=== PATIENT | female | born 1970 | race Caucasian/White ===

== ENCOUNTER → 2017-08-17 15:46 | Outpatient (CLI) | payer MEDICAID, SELFPAY ==
--- NOTE | 2017-08-17 15:49 | MM_ITS ---
MM Dig screening mamm BI w/CAD CAD Screening COMPARISON: Digital mammograms 01/14/2015 and 04/27/2016 INDICATION: There is a history of breast cancer in the patient's grandmother diagnosed after menopause. TECHNIQUE: Standard CC and MLO images were obtained. R2 CAD reviewed. FINDINGS: Prominent heterogenic fibroglandular densities are seen in the central portions of both breast. There are 2 biopsy clips right breast. Again noted is the stable annular opacity deep inner quadrant right breast which has been seen previously likely iatrogenic in nature. There is a benign-appearing calcification right breast. There is no suspicious lesion and no suspicious microcalcifications. IMPRESSION: Stable exam no suspicious lesion seen BI-RADS Category: 2 Benign Finding(s) RECOMMENDED FOLLOW-UP: 1YR - 1 YEAR FOLLOW-UP (A letter has been sent to the patient regarding results of the study.)
== END ==
PROVIDERS: Family Provider Nurse Practitioner Family; PCP Emergency Medicine; Visit Provider Physician Assistant
DX: Z12.31 Encounter for screening mammogram for malignant neoplasm of breast (principal)
CPT/HCPCS: 77067

== ENCOUNTER → 2017-08-22 12:01 | Outpatient (REF) | payer MEDICAID, SELFPAY ==
[2017-08-22 13:48] LABS: Amphetamine/Metha Screen,Urine Negative ng/mL (<1000); Barbiturates Screen,Urine Negative ng/mL (<200); Benzodiazepines Screen,Urine Negative ng/mL (200); Cannabinoid Screen,Urine Positive ng/mL (<50); Cocaine Screen,Urine Negative ng/g (<300); Methadone Screen,Urine Negative ng/mL (<300); Opiate Screen,Urine Positive ng/mL (<300); Phencyclidine Screen,Urine Negative ng/mL (<25)
== END ==
LOC: LAB 12:01
PROVIDERS: Visit Provider Physician Assistant
DX: Z79.899 Other long term (current) drug therapy (principal)
CPT/HCPCS: 80305

== ENCOUNTER → 2017-11-20 11:09 | Outpatient (REF) | payer MEDICAID, SELFPAY ==
[2017-11-20 13:19] LABS: Basophils # 0.1 K/mm3 (0-0.2); Basophils % 0.7 % (0.1-2.0); Eosinophils # 0.2 K/mm3 (0.0-0.4); Eosinophils % 3.5 % (0.1-12.0); Hematocrit 44.1 % (37.0-47.0); Hemoglobin 14.4 g/dL (12.2-16.2); Lymphocytes # 1.3 K/mm3 (0.7-4.5); Lymphocytes % 20.8 K/mm3 (10-50); Mean Corpuscular HGB Conc 32.6 g/dL (31.8-35.4); Mean Corpuscular Hemoglobin 30.5 pg (27.0-31.2); Mean Corpuscular Volume 93.5 fl (81-99); Mean Platelet Volume 7.4 fl (7.4-10.4); Monocytes # 0.3 K/mm3 (0.1-1.0); Monocytes % 4.5 % (1.7-9.3); Neutrophils # 4.4 K/mm3 (1.8-7.8); Neutrophils % 70.5 % (37.0-80.0); Platelet Count 338 K/mm3 (142-424); Red Blood Count 4.72 M/mm3 (4.20-5.40); Red Cell Distribution Width 12.9 % (11.5-17.5); White Blood Count 6.3 K/mm3 (4.8-10.8)
[2017-11-20 17:48] LABS: Alanine Aminotransferase 31 U/L (12-78); Albumin/Globulin Ratio 1.2 (1.1-1.8); Alkaline Phosphatase 64 U/L (46-116); Anion Gap 14.2 mEq/L (5-15); Aspartate Amino Transferase 18 U/L (15-37); Bilirubin,Total 0.4 mg/dL (0.2-1.0); Blood Urea Nitrogen 17 mg/dL (7-18); Carbon Dioxide 26 mmol/L (21.0-32.0); Chloride 105 mmol/L (98-107); Chol/HDL Ratio 4.5 (1-3.5); Cholesterol 227 mg/dL (140-200); Creatinine,Serum 0.76 mg/dL (0.55-1.02); Estimated Glomerular Filt Rate 82 ml/min (>60); GFR (African American) 99 ML/MIN (>60); Globulin 3.4 gm/dl (1.3-3.2); Glucose 90 mg/dL (74-106); HDL Cholesterol 50 mg/dL (29-89); LDL Cholesterol 155 mg/dL (0-130); Potassium 4.2 mmoL/L (3.5-5.1); Sodium 141 mmol/L (136-145); T4 (Thyroxine) 7.3 ug/dl (4.7-13.3); Thyroid Stimulating Hormone 3.51 uIU/ml (0.358-3.740); Total Protein,Serum 7.4 gm/dL (6.4-8.2); Triglycerides 112 mg/dL (30-200); VLDL Cholesterol 22 mg/dL (0-40)
[2017-11-22 06:17] LABS: Vitamin B12 370 pg/mL (232-1245); Vitamin D 25 Hydroxy 25.7 ng/mL (30.0-100.0)
== END ==
LOC: LAB 11:09
PROVIDERS: Visit Provider Physician Assistant
DX: M81.0 Age-related osteoporosis without current pathological fracture (principal)
CPT/HCPCS: 80053; 80061; 82607; 82652; 84436; 84443; 85025

== ENCOUNTER → 2018-07-04 14:27 | Outpatient (CLI) | payer MEDICAID, SELFPAY ==
[2018-07-04 14:52] LABS: Amphetamine/Metha Screen,Urine Negative ng/mL (<1000); Barbiturates Screen,Urine Negative ng/mL (<200); Benzodiazepines Screen,Urine Negative ng/mL (<200); Cannabinoid Screen,Urine Positive ng/mL (<50); Cocaine Screen,Urine Negative ng/mL (<300); Methadone Screen,Urine Negative ng/mL (<300); Opiate Screen,Urine Positive ng/mL (<300); Phencyclidine Screen,Urine Negative ng/mL (<25)
== END ==
PROVIDERS: Visit Provider Physician Assistant
DX: Z79.899 Other long term (current) drug therapy (principal)
CPT/HCPCS: 80305

== ENCOUNTER → 2018-08-29 13:37 | Outpatient (CLI) | payer MEDICAID, SELFPAY ==
[2018-08-29 13:56] LABS: Basophils % 0.6 % (0.1-2.0); Eosinophils # 0.2 K/mm3 (0.0-0.4); Eosinophils % 2.3 % (0.1-12.0); Hematocrit 40.3 % (37.0-47.0); Hemoglobin 13.1 g/dL (12.2-16.2); Lymphocytes # 1.1 K/mm3 (0.7-4.5); Lymphocytes % 16.6 % (10-50); Mean Corpuscular HGB Conc 32.5 g/dL (31.8-35.4); Mean Corpuscular Hemoglobin 29.3 pg (27.0-31.2); Mean Corpuscular Volume 90.2 fl (81-99); Mean Platelet Volume 6.7 fl (7.4-10.4); Monocytes # 0.3 K/mm3 (0.1-1.0); Monocytes % 4.9 % (1.7-9.3); Neutrophils % 75.6 % (37.0-80.0); Platelet Count 323 K/mm3 (142-424); Red Blood Count 4.47 M/mm3 (4.20-5.40); Red Cell Distribution Width 13.4 % (11.5-17.5); White Blood Count 6.7 K/mm3 (4.8-10.8)
[2018-08-29 14:39] LABS: Alanine Aminotransferase 19 U/L (12-78); Albumin Level 3.7 gm/dL (3.4-5.0); Albumin/Globulin Ratio 1.1 (1.1-1.8); Alkaline Phosphatase 109 U/L (46-116); Anion Gap 12.8 mEq/L (5-15); Aspartate Amino Transferase 14 U/L (15-37); Bilirubin,Total 0.4 mg/dL (0.2-1.0); Blood Urea Nitrogen 17 mg/dL (7-18); Calcium 9.1 mg/dL (8.5-10.1); Carbon Dioxide 28 mmol/L (21.0-32.0); Chloride 104 mmol/L (98-107); Creatinine,Serum 0.78 mg/dL (0.55-1.02); Estimated Glomerular Filt Rate 79 ml/min (>60); GFR (African American) 96 ML/MIN (>60); Globulin 3.4 gm/dl (1.3-3.2); Glucose 86 mg/dL (74-106); Potassium 3.8 mmoL/L (3.5-5.1); Sodium 141 mmol/L (136-145); Thyroid Stimulating Hormone 2.49 uIU/ml (0.358-3.740); Total Protein,Serum 7.1 gm/dL (6.4-8.2)
[2018-08-29 15:53] LABS: Amphetamine/Metha Screen,Urine Positive ng/mL (<1000); Barbiturates Screen,Urine Negative ng/mL (<200); Benzodiazepines Screen,Urine Negative ng/mL (<200); Cannabinoid Screen,Urine Positive ng/mL (<50); Cocaine Screen,Urine Negative ng/mL (<300); Methadone Screen,Urine Negative ng/mL (<300); Opiate Screen,Urine Positive ng/mL (<300); Phencyclidine Screen,Urine Negative ng/mL (<25)
== END ==
PROVIDERS: Visit Provider Physician Assistant
DX: C91.00 Acute lymphoblastic leukemia not having achieved remission (principal); Z79.899 Other long term (current) drug therapy
CPT/HCPCS: 80053; 80305; 84436; 84443; 85025

== ENCOUNTER → 2018-09-07 08:57 | Outpatient (CLI) | payer MEDICAID, SELFPAY ==
--- NOTE | 2018-09-07 09:00 | MM_ITS ---
MM Dig screening mamm BI w/CAD CAD Screening COMPARISON: Digital mammograms with CAD 08/17/2017 and 04/27/2016 INDICATION: There is a history of breast cancer in the patient's maternal grandmother diagnosed after menopause. There has been previous biopsy right breast for benign disease. TECHNIQUE: Standard CC and MLO images were obtained. R2 CAD reviewed. FINDINGS: Moderate heterogenic fibroglandular densities are seen in the central portions of both breast. There are 2 biopsy clips right breast. Again noted is the rectangular foreign body upper inner quadrant right breast there is a stable nodular benign-appearing density right breast inner quadrant. There is a benign-appearing calcification right breast. There is no suspicious lesion and there are no suspicious microcalcifications. IMPRESSION: Moderate breast density with no suspicious lesion seen BI-RADS Category: 2 Benign Finding(s) RECOMMENDED FOLLOW-UP: 1YR - 1 YEAR FOLLOW-UP (A letter has been sent to the patient regarding results of the study.)
--- NOTE | 2018-09-07 09:00 | CA_ITS ---
PROCEDURE: 2-D M-mode and color Doppler study INDICATIONS FOR THE TEST: Chest pain COPD Heart Murmur Tobacco Smoking Palpitations Fatigue Syncope Edema HypertensionXDiabetes Mellitus Rheumatic Fever SOB JOE Obesity HyperlipidemiaX Family History HD Additional History P/H LEUKEMIA PATIENT INFORMATION HEIGHT: 63 WEIGHT:146 GENDER: Female B/P:128/76 2-D/M-MODE INTERPRETATION: 2-D MEASUREMENTS OBSERVED VALUES IN CMS Right Ventricular Dimension (RVDd) 2.5 Interventricular Septum (Thickness)(IVsd) 1.0 Left Ventricular Internal Dimensions(LVIDd) 3.7 Left Ventricular Posterior Wall (Thickness)(LVPWd) .9 Aortic Root 3.3 Aortic Cusp Separation 1.8 Left Atrial Dimensions (LAD) 2.5 2D 1. Left atrium is normal size, left ventricle is normal size, left ventricle wall thickness is upper limit of normal, there is preserved left ventricular systolic function, visually estimated ejection fraction 55% with no regional wall motion abnormality. 2. The right atrium and right ventricle are normal size and contractility. 3. The aortic valve is minimally thickened and fibrosed. 4. The mitral and tricuspid valve are grossly normal. 5. The pulmonic valve is poorly visualized. 6. No significant pericardial effusion noted DOPPLER INTERROGATION: Doppler interrogation of the aortic, mitral and tricuspid valvular presence of mild mitral and tricuspid regurgitation, tricuspid regurgitation jet velocity is inadequate for calculation of the right ventricular systolic pressure, grade 1 diastolic dysfunction seen without tissue Doppler evidence of raised left atrial pressure. CONCLUSION: 1. Normal left ventricular size, preserved left ventricular systolic function, visually estimated ejection fraction 55% with no regional wall motion abnormality, grade 1 diastolic dysfunction seen without tissue Doppler evidence of raised left atrial pressure. 2. Mild mitral and tricuspid regurgitation 3. No significant pericardial effusion noted.
== END ==
PROVIDERS: PCP Physician Assistant; Visit Provider Physician Assistant
DX: Z12.31 Encounter for screening mammogram for malignant neoplasm of breast (principal); C91.01 Acute lymphoblastic leukemia, in remission
CPT/HCPCS: 77067; 93306

== ENCOUNTER → 2018-12-25 14:23 | Outpatient (CLI) | payer MEDICAID, SELFPAY ==
[2018-12-25 17:12] LABS: Amphetamine/Metha Screen,Urine Negative ng/mL (<1000); Barbiturates Screen,Urine Negative ng/mL (<200); Benzodiazepines Screen,Urine Negative ng/mL (<200); Cannabinoid Screen,Urine Positive ng/mL (<50); Cocaine Screen,Urine Negative ng/mL (<300); Methadone Screen,Urine Negative ng/mL (<300); Opiate Screen,Urine Positive ng/mL (<300); Phencyclidine Screen,Urine Negative ng/mL (<25)
== END ==
PROVIDERS: Visit Provider Physician Assistant
DX: Z79.899 Other long term (current) drug therapy (principal)
CPT/HCPCS: 80305

== ENCOUNTER → 2020-04-16 15:46 | Outpatient (CLI) | payer MEDICAID, SELFPAY ==
[2020-04-16 15:50] LABS: MANUAL DIFFERENTIAL MANUAL DIFFERENTIAL (MANUAL DIFF)
[2020-04-16 16:09] LABS: Basophils % 0.7 % (0.1-2.0); Eosinophils # 0.3 K/mm3 (0.0-0.4); Hematocrit 39.3 % (37.0-47.0); Hemoglobin 12.6 g/dL (12.2-16.2); Lymphocytes % 18.8 % (10-50); Mean Corpuscular HGB Conc 32.1 g/dL (31.8-35.4); Mean Corpuscular Hemoglobin 30.1 pg (27.0-31.2); Mean Corpuscular Volume 93.9 fl (81-99); Mean Platelet Volume 7.9 fl (7.4-10.4); Monocytes # 0.2 K/mm3 (0.1-1.0); Monocytes % 4.3 % (1.7-9.3); Neutrophils # 3.8 K/mm3 (1.8-7.8); Neutrophils % 70.1 % (37.0-80.0); Platelet Count 289 K/mm3 (142-424); Red Blood Count 4.19 M/mm3 (4.20-5.40); White Blood Count 5.5 K/mm3 (4.8-10.8)
[2020-04-16 16:43] LABS: Chloride 106 mmol/L (98-107)
[2020-04-16 16:44] LABS: Potassium 4.4 mmoL/L (3.5-5.1); Sodium 141 mmol/L (136-145)
[2020-04-16 16:46] LABS: Alanine Aminotransferase 10 U/L (12-78); Alkaline Phosphatase 83 U/L (38-126); Aspartate Amino Transferase 19 U/L (14-36); Bilirubin,Total 0.5 mg/dl (0.2-1.3); Blood Urea Nitrogen 20 mg/dl (7-17); Estimated Glomerular Filt Rate 89 ml/min (>60); GFR (African American) 108 ML/MIN (>60)
[2020-04-16 16:47] LABS: Albumin Level 4.2 g/dl (3.5-5.0); Albumin/Globulin Ratio 1.6 (1.1-1.8); Anion Gap 15.4 mEq/L (5-15); Calcium 9.3 mg/dl (8.4-10.2); Carbon Dioxide 24 mmol/L (22.0-30.0); Globulin 2.7 g/dL (1.3-3.2); Glucose 91 mg/dl (74-100); Total Protein,Serum 6.9 g/dl (6.3-8.2)
[2020-04-16 16:53] LABS: Eosinophils % 3 % (0-3); Lymphocytes % 25 % (10-50); Monocytes % 3 % (2-9); Neutrophils % 69 % (42-76); Platelet Estimate Normal; RBC Morphology Normal; Total Cells Counted 100
[2020-04-16 16:56] LABS: Free T4 (Free Thyroxine) 1.19 ng/dl (0.78-2.19)
[2020-04-16 17:11] LABS: Thyroid Stimulating Hormone 4.08 uIU/mL (0.465-4.68)
== END ==
PROVIDERS: Visit Provider Physician Assistant
DX: C91.01 Acute lymphoblastic leukemia, in remission (principal)
CPT/HCPCS: 80053; 84439; 84443; 85007; 85014; 85018; 85048; 85049

== ENCOUNTER → 2020-05-04 14:45 | Outpatient (CLI) | payer MEDICAID, SELFPAY ==
--- NOTE | 2020-05-04 14:45 | MM_ITS ---
PROCEDURE: MM DIG SCREENING MAMM BI W/CAD Digital Breast Tomosynthesis Included CLINICAL INDICATION: breast cancer screening There is a history of breast cancer in the patient's maternal grandmother. There has been a previous biopsy right breast for benign disease. COMPARISON: MG DMSB DIG MAMM-SCREEN VICTOR MANUEL from 04/27/2016 MG [facility] MM Dig screening mamm BI w/CAD from 08/17/2017 MG [facility] MM Dig screening mamm BI w/CAD from 09/07/2018 TECHNIQUE: Standard CC and MLO images and 3D Tomosynthesis was obtained. R2 CAD reviewed. FINDINGS: Moderate somewhat heterogenic fibroglandular densities are seen in the central portions of both breast. Again noted are 2 biopsy clips right breast. Again noted is the small rectangular foreign body upper central portion right breast. There is a small fairly well-defined nodular density inner quadrant right breast which has shown interval increase in size and when compared to the most recent study. It is only definitely seen on the CC view but likely within the central portion of the breast in view of its position on the sandra images. Recommend the patient return for spot compression views and ultrasound for additional evaluation. There is a benign-appearing microcalcification right breast. There are no suspicious microcalcifications. IMPRESSION: Moderate breast density with possible change in nodular density right breast BI-RAD Category: 0 Need Additional Imaging Evaluation FOLLOW-UP: IMM Immediate Follow-up Recommended (A letter has been sent to the patient regarding results of the study.) Dictated by: Dr. Miquel Cosby MD 05/07/2020 06:47 Dr. Miquel Cosby MD in [place] 05/07/2020 06:47
--- NOTE | 2020-05-04 14:45 | XR_ITS ---
PROCEDURE: XR DEXA AXIAL SKELETON CLINICAL HISTORY: H/O ALL COMPARISON: CR BONE3 BONE DENSITOMETRY(HIP:LT SPINE from 04/07/2016 FINDINGS: The right forearm BMD is 0.619 with a T-score of -1.2. The lumbar spine BMD is 0.797 with a T-score of -2.3. Previously the lowest density was in the lumbar spine with a T-score of -2.0 IMPRESSION: This patient is considered osteopenic according to the World Health Organization criteria. Bone density is between 10 and 25 percent below young normal. Fracture risk is moderate. Treatment is advised. Based on these results a follow-up exam is recommended in 2 year. Dictated by: Ricardo Barrow MD 05/05/2020 11:15 Ricardo Barrow MD in [place] 05/05/2020 11:15
== END ==
PROVIDERS: PCP Emergency Medicine; Visit Provider Physician Assistant
DX: Z12.31 Encounter for screening mammogram for malignant neoplasm of breast (principal); C91.01 Acute lymphoblastic leukemia, in remission; Z78.0 Asymptomatic menopausal state
CPT/HCPCS: 77063; 77067; 77080

== ENCOUNTER → 2020-05-15 14:45 | Outpatient (CLI) | payer MEDICAID, SELFPAY ==
--- NOTE | 2020-05-15 14:46 | US_ITS ---
PROCEDURE: US BREAST RT COMPLETE CLINICAL INDICATION: abnormal mamm COMPARISON: No exams were available for comparison FINDINGS: There are 2-3 small cystic lesions at the 12 o'clock position mid breast the largest measuring 0.5 cm in diameter. There is another hypoechoic cystic-appearing lesion at the 1 o'clock position measuring 0.7 x 0.5 x 0.6 cm and this likely corresponds in size and location to the nodular lesion seen on the mammogram. There are no suspicious solid lesions seen. There are couple of tiny 3-4 mm cystic lesions at the 7 and 8 o'clock positions near the nipple. There are 2 normal appearing nodes in the axilla. IMPRESSION: Several small benign-appearing cystic lesions as described and no additional evaluation is indicated. Dictated by: Dr. Miquel Cosby MD 05/20/2020 11:24 Dr. Miquel Cosby MD in [place] 05/20/2020 11:24
--- NOTE | 2020-05-15 14:59 | MM_ITS ---
PROCEDURE: MM DIG MAMM DX UNILAT RT CAD Digital Breast Tomosynthesis Included CLINICAL INDICATION: ABN RT BREAST MAMM COMPARISON: MG [facility] MM Dig screening mamm BI w/CAD from 08/17/2017 MG [facility] MM Dig screening mamm BI w/CAD from 09/07/2018 MG MM DIG SCREENING MAMM BI W/CAD from 05/04/2020 US US BREAST RT COMPLETE from 05/15/2020 TECHNIQUE: Standard CC and MLO images and 3D Tomosynthesis was obtained. R2 CAD reviewed. FINDINGS: Views show better visualization of the nodular lesion 12 no one o'clock position and only definitely seen on the CC projection. It measures 7 mm in diameter. There are 2 biopsy clips central portion. Ultrasound performed same date shows several small cystic lesions the largest of which is at the 1 o'clock position measuring 6 mm in diameter. This likely corresponds to the nodule seen on the mammogram. There is no suspicious solid lesion seen. IMPRESSION: Ultrasound confirmation of probable cyst corresponding to the nodular lesion and recommend the patient continue with yearly screening mammography seen on the mammogram BI-RAD Category: 2 Benign Finding(s) FOLLOW-UP: 1YR 1 Year Follow-up (A letter has been sent to the patient regarding results of the study.) Dictated by: Dr. Miquel Cosby MD 05/20/2020 11:20 Dr. Miquel Cosby MD in [place] 05/20/2020 11:20
== END ==
PROVIDERS: PCP Emergency Medicine; Visit Provider Physician Assistant
DX: R92.8 Other abnormal and inconclusive findings on diagnostic imaging of breast (principal)
CPT/HCPCS: 76641; 77061; 77065; G0279

== ENCOUNTER → 2021-03-01 14:44 | Outpatient (CLI) | payer MEDICAID, SELFPAY ==
[2021-03-01 14:57] LABS: Basophils # 0.1 K/mm3 (0-0.2); Basophils % 1.1 % (0.1-2.0); Eosinophils # 0.3 K/mm3 (0.0-0.4); Eosinophils % 3.9 % (0.1-12.0); Hematocrit 36.7 % (37.0-47.0); Hemoglobin 12.2 g/dL (12.2-16.2); Lymphocytes % 13.6 % (10-50); Mean Corpuscular HGB Conc 33.4 g/dL (31.8-35.4); Mean Corpuscular Hemoglobin 30.6 pg (27.0-31.2); Mean Corpuscular Volume 91.8 fl (81-99); Mean Platelet Volume 7.8 fl (7.4-10.4); Monocytes # 0.3 K/mm3 (0.1-1.0); Monocytes % 3.8 % (1.7-9.3); Neutrophils # 5.5 K/mm3 (1.8-7.8); Neutrophils % 77.6 % (37.0-80.0); Platelet Count 301 K/mm3 (142-424); Red Cell Distribution Width 13.2 % (11.5-17.5); White Blood Count 7.1 K/mm3 (4.8-10.8)
[2021-03-01 15:22] LABS: Alanine Aminotransferase 9 U/L (12-78); Albumin Level 3.9 g/dl (3.5-5.0); Albumin/Globulin Ratio 1.4 (1.1-1.8); Alkaline Phosphatase 93 U/L (38-126); Anion Gap 11.6 mEq/L (5-15); Aspartate Amino Transferase 27 U/L (14-36); Bilirubin,Total 0.5 mg/dl (0.2-1.3); Blood Urea Nitrogen 20 mg/dl (7-17); Calcium 8.8 mg/dl (8.4-10.2); Carbon Dioxide 26 mmol/L (22.0-30.0); Chloride 107 mmol/L (98-107); Chol/HDL Ratio 2.9 (1-3.5); Cholesterol 152 mg/dl (140-200); Estimated Glomerular Filt Rate 89 ml/min (>60); GFR (African American) 108 ML/MIN (>60); Globulin 2.7 g/dL (1.3-3.2); Glucose 85 mg/dl (74-100); HDL Cholesterol 53 mg/dl (40-60); Potassium 4.6 mmoL/L (3.5-5.1); Sodium 140 mmol/L (136-145); Total Protein,Serum 6.6 g/dl (6.3-8.2); Triglycerides 217 mg/dl (30-150); VLDL Cholesterol 43 mg/dL (0-40)
[2021-03-01 15:34] LABS: Direct LDL Cholesterol 43.52 mg/dL (100-129)
[2021-03-01 15:35] LABS: Hemoglobin A1C 5.1 % (4.0-6.0)
[2021-03-01 15:38] LABS: Free T4 (Free Thyroxine) 1.11 ng/dl (0.78-2.19)
[2021-03-01 15:39] LABS: 25-OH Vitamin D, Total 27.2 ng/mL (30-100)
[2021-03-01 15:55] LABS: Thyroid Stimulating Hormone 1.44 uIU/mL (0.465-4.68)
[2021-03-01 16:13] LABS: Vitamin B12 377 pg/mL (239-931)
== END ==
PROVIDERS: Visit Provider Physician Assistant
DX: R53.83 Other fatigue (principal); E78.5 Hyperlipidemia, unspecified; E55.9 Vitamin D deficiency, unspecified; L65.9 Nonscarring hair loss, unspecified; M79.671 Pain in right foot; M79.672 Pain in left foot
CPT/HCPCS: 80053; 80061; 82306; 82607; 83036; 84439; 84443; 85025

== ENCOUNTER → 2021-05-17 10:48 | Outpatient (CLI) | payer MEDICAID, SELFPAY ==
--- NOTE | 2021-05-17 10:52 | XR_ITS ---
PROCEDURE INFORMATION: Exam: XR Right Foot Complete; Alignment Exam date and time: 05/17/2021 10:52 AM Age: 51 years old Clinical indication: Pain; Foot; Right; Additional info: Foot pain TECHNIQUE: Imaging protocol: XR Right foot. Views: 3 or more views. COMPARISON: CR FTR3 FOOT-RT-3 VIEWS 08/17/2015 7:48 PM FINDINGS: Bones/joints: There is no evidence of acute fracture.There is no evidence of malalignment or dislocation. Soft tissues: Normal. IMPRESSION: There is no evidence of acute fracture.There is no evidence of malalignment or dislocation.
--- NOTE | 2021-05-17 10:52 | XR_ITS ---
PROCEDURE INFORMATION: Exam: XR Left Foot Complete; Alignment Exam date and time: 05/17/2021 10:52 AM Age: 51 years old Clinical indication: Pain; Foot; Left; Additional info: Foot pain TECHNIQUE: Imaging protocol: XR Left foot. Views: 3 or more views. COMPARISON: No relevant prior studies available. FINDINGS: Bones/joints: There is no evidence of acute fracture.There is no evidence of malalignment or dislocation. Soft tissues: Normal. IMPRESSION: There is no evidence of acute fracture.There is no evidence of malalignment or dislocation.
--- NOTE | 2021-05-17 15:27 | MM_ITS ---
PROCEDURE: MM DIG SCREENING MAMM BI W/CAD Digital Breast Tomosynthesis Included CLINICAL INDICATION: screening mammogram after 05/15 There is a history of breast cancer in the patient's maternal grandmother. There has been a previous biopsy right breast for benign disease. COMPARISON: MG [facility] MM Dig screening mamm BI w/CAD from 09/07/2018 MG MM DIG SCREENING MAMM BI W/CAD from 05/04/2020 MG MM DIG MAMM DX UNILAT RT CAD from 05/15/2020 TECHNIQUE: Standard CC and MLO images and 3D Tomosynthesis was obtained. R2 CAD reviewed. FINDINGS: Moderate somewhat heterogenic fibroglandular densities are seen in both breast. There are 2 biopsy clips right breast. Again noted is a stable rectangular foreign body upper inner quadrant right breast. Again noted is a small nodular density central portion right breast which has been noted previously and actually appears slightly smaller on today's exam. There are couple of benign-appearing microcalcifications in each breast. There is no new or suspicious lesion in either breast and no suspicious microcalcifications. IMPRESSION: Stable exam with no suspicious lesions seen BI-RAD Category: 2 Benign Finding(s) FOLLOW-UP: 1YR 1 Year Follow-up (A letter has been sent to the patient regarding results of the study.) Dictated by: Dr. Miquel Cosby MD 05/21/2021 08:30 Dr. Miquel Cosby MD in [place] 05/21/2021 08:30
== END ==
PROVIDERS: PCP Physician Assistant; Visit Provider Physician Assistant
DX: M79.672 Pain in left foot (principal); M79.671 Pain in right foot; Z12.31 Encounter for screening mammogram for malignant neoplasm of breast
CPT/HCPCS: 73630; 77063; 77067

== ENCOUNTER → 2021-05-27 10:48 | Outpatient (CLI) | payer MEDICAID, SELFPAY ==
--- NOTE | 2021-05-27 10:54 | MR_ITS ---
PROCEDURE INFORMATION: Exam: MR Right Lower Extremity Joint Without and With Contrast; Ankle Exam date and time: 05/27/2021 10:54 AM Age: 51 years old Clinical indication: Pain; Ankle; Right; Additional info: Chronic ankle pain. HX avascular necrosis of hips. Lateral sided ankle pain x1yr. Falling frequently. Weakness in ankle. 13ml prohance given, lot: [id number] exp: Jan 2023 prior x-ray 05-17-21. > HX all leukemia and non hodgkins lymphoma. TECHNIQUE: Imaging protocol: MR of the Right lower extremity without and with contrast. Exam focused on the ankle. Contrast material: PROHANCE; Contrast volume: 13 ml; Contrast route: IV; COMPARISON: 1. CR ANKR3 ANKLE-RT-3 VIEWS 08/17/2015 7:46 PM 2. CR XR FOOT WT BEARING RT 3V 05/17/2021 11:05 AM FINDINGS: Bones and cartilage: There is no acute fracture or dislocation. No aggressive bone lesions are present. A benign bone island is incidentally noted. Joint spaces: A mild amount of fluid decompresses posteriorly from the subtalar joint. LIGAMENTS: Distal tibiofibular syndesmosis: Unremarkable. No tear. Anterior talofibular ligament: Unremarkable. No tear. Posterior talofibular ligament: Unremarkable. No tear. Calcaneofibular ligament: Unremarkable. No tear. Deltoid ligament complex: Unremarkable. No tear. TENDONS: Flexor tendons of foot: Mild tenosynovitis involves the flexor digitorum longus tendon. Tibialis posterior tendon: Mild tenosynovitis involves the tibialis posterior tendon. Peroneal tendons: Unremarkable as visualized. Extensor tendons of foot: Unremarkable as visualized. Tibialis anterior tendon: Unremarkable. Achilles tendon: Unremarkable as visualized. Tarsal canal (Sinus tarsi): Unremarkable. Normal signal of the fat. Tarsal tunnel: Unremarkable. Muscles: The lower leg and foot muscles are severely atrophied. Soft tissues: No soft tissue mass or unusual enhancement. Plantar fascia: Unremarkable. IMPRESSION: 1. Severely atrophied lower leg and foot muscles. 2. Mild tenosynovitis of the tibialis posterior and flexor digitorum longus tendons. 3. No evidence of malignancy.
== END ==
PROVIDERS: PCP Physician Assistant; Visit Provider Podiatrist
DX: M25.371 Other instability, right ankle (principal); M76.71 Peroneal tendinitis, right leg; M25.372 Other instability, left ankle; G89.29 Other chronic pain
CPT/HCPCS: 73723; A9576

== ENCOUNTER → 2021-05-28 10:58 | Outpatient (CLI) | payer MEDICAID, SELFPAY ==
--- NOTE | 2021-05-28 11:05 | MR_ITS ---
PROCEDURE INFORMATION: Exam: MR Left Lower Extremity Joint Without Contrast; Ankle Exam date and time: 05/28/2021 11:05 AM Age: 51 years old Clinical indication: Pain; Ankle; Left; Additional info: Chronic ankle pain. Chronic left ankle pain and weakness x years TECHNIQUE: Imaging protocol: MR of the Left lower extremity without contrast. Exam focused on the ankle. COMPARISON: CR XR FOOT WT BEARING LT 3V 05/17/2021 11:05 AM FINDINGS: Bones and cartilage: Within the 2nd metatarsal shaft, there is a tiny focus of STIR hyperintensity, which is likely benign. Mild degenerative spurring of the medial malleolus and adjacent talus. No acute marrow edema involving the ankle. No dislocation of the ankle. Joint spaces: Small tibiotalar and subtalar joint effusions. Small cystic collection of fluid dorsal to the talar head/neck measuring 0.6 x 0.2 cm, consistent with extension of talonavicular effusion or ganglion cyst. LIGAMENTS: Distal tibiofibular syndesmosis: No tear. Anterior talofibular ligament: No tear. Posterior talofibular ligament: No tear. Calcaneofibular ligament: The calcaneofibular ligament is small in caliber and heterogeneous in signal intensity, suggestive of partial tear. Deltoid ligament complex: Heterogeneous signal intensity of the deltoid ligament, without definitive tear. Spring ligament complex: Small amount of fluid within the spring ligament recess. TENDONS: Flexor tendons of foot: See below. Tibialis posterior tendon: Minimal fluid between the posterior tibialis tendon and flexor digitorum tendon, suggestive of minimal tenosynovitis. No visualized tear. Peroneal tendons: Minimal fluid adjacent to the peroneal tendons, without visualized tear. Extensor tendons of foot: Unremarkable as visualized. Tibialis anterior tendon: Unremarkable as visualized. Achilles tendon: Mild swelling anterior to the Achilles tendon. Achilles paratenonitis is considered. No visualized tear of the Achilles tendon. Tarsal canal (Sinus tarsi): Mild extension of subtalar fluid into the sinus tarsi. Muscles: Muscle atrophy visualized, with severe atrophy involving the foot. Soft tissues: Minimal fluid within the retrocalcaneal bursa. Plantar fascia: Intact, as visualized. IMPRESSION: 1. Small tibiotalar and subtalar joint effusions. 2. Muscle atrophy visualized, with severe atrophy involving the foot. 3. Suggested partial tear of the calcaneofibular ligament. 4. Mild swelling anterior to the Achilles tendon. Achilles paratenonitis is considered. 5. Additional findings described above.
== END ==
PROVIDERS: PCP Physician Assistant; Visit Provider Podiatrist
DX: M25.372 Other instability, left ankle (principal); M25.371 Other instability, right ankle; M76.72 Peroneal tendinitis, left leg; G89.29 Other chronic pain
CPT/HCPCS: 73721

== ENCOUNTER → 2021-08-24 12:03 | Outpatient (CLI) | payer MEDICAID, SELFPAY ==
[2021-08-24 13:07] LABS: Basophils % 0.8 % (0.1-2.0); Eosinophils # 0.2 K/mm3 (0.0-0.4); Eosinophils % 3.7 % (0.1-12.0); Hematocrit 40.7 % (37.0-47.0); Hemoglobin 12.9 g/dL (12.2-16.2); Lymphocytes # 1.2 K/mm3 (0.7-4.5); Lymphocytes % 21.2 % (10-50); Mean Corpuscular HGB Conc 31.7 g/dL (31.8-35.4); Mean Corpuscular Hemoglobin 30.6 pg (27.0-31.2); Mean Corpuscular Volume 96.6 fl (81-99); Mean Platelet Volume 7.7 fl (7.4-10.4); Monocytes # 0.3 K/mm3 (0.1-1.0); Monocytes % 4.7 % (1.7-9.3); Neutrophils # 3.8 K/mm3 (1.8-7.8); Neutrophils % 69.6 % (37.0-80.0); Platelet Count 314 K/mm3 (142-424); Red Blood Count 4.21 M/mm3 (4.20-5.40); Red Cell Distribution Width 13.2 % (11.5-17.5); White Blood Count 5.5 K/mm3 (4.8-10.8)
[2021-08-24 13:28] LABS: Alanine Aminotransferase 25 U/L (12-78); Albumin Level 4.4 g/dl (3.5-5.0); Albumin/Globulin Ratio 1.8 (1.1-1.8); Alkaline Phosphatase 74 U/L (38-126); Anion Gap 12.2 mEq/L (5-15); Aspartate Amino Transferase 25 U/L (14-36); Bilirubin,Total 0.5 mg/dl (0.2-1.3); Blood Urea Nitrogen 19 mg/dl (7-17); Calcium 9.4 mg/dl (8.4-10.2); Carbon Dioxide 26 mmol/L (22.0-30.0); Chloride 106 mmol/L (98-107); Estimated Glomerular Filt Rate 89 ml/min (>60); GFR (African American) 107 ML/MIN (>60); Globulin 2.5 g/dL (1.3-3.2); Glucose 96 mg/dl (74-100); Potassium 4.2 mmoL/L (3.5-5.1); Sodium 140 mmol/L (136-145); Total Protein,Serum 6.9 g/dl (6.3-8.2)
[2021-08-24 14:00] LABS: Thyroid Stimulating Hormone 3.04 uIU/mL (0.465-4.68)
[2021-08-24 14:35] LABS: Vitamin B12 532 pg/mL (239-931)
== END ==
PROVIDERS: PCP Physician Assistant; Visit Provider Podiatrist
DX: M25.572 Pain in left ankle and joints of left foot (principal); M25.571 Pain in right ankle and joints of right foot
CPT/HCPCS: 36415; 80053; 82607; 82746; 84443; 85025; 86140

== ENCOUNTER → 2021-09-08 14:51 | Outpatient (CLI) | payer MEDICAID, SELFPAY ==
[2021-09-08 13:52] LABS: Amphetamine/Metha Screen,Urine Negative ng/ml (<1000)
[2021-09-08 13:53] LABS: Barbiturates Screen,Urine Negative ng/ml (<200); Benzodiazepines Screen,Urine Negative ng/ml (<200)
[2021-09-08 13:54] LABS: Cannabinoid Screen,Urine Positive ng/ml (<50); Cocaine Screen,Urine Negative ng/ml (<300)
[2021-09-08 13:55] LABS: Methadone Screen,Urine Negative ng/ml (<300)
[2021-09-08 13:56] LABS: Opiate Screen,Urine Positive ng/ml (<300); Phencyclidine Screen,Urine Negative ng/ml (<25)
== END ==
PROVIDERS: Visit Provider Physician Assistant
DX: G89.29 Other chronic pain (principal)
CPT/HCPCS: 80305

== ENCOUNTER → 2021-09-13 15:16 | Outpatient (CLI) | payer MEDICAID, SELFPAY | PROVIDERS: Visit Provider Internal Medicine | DX: Z01.812 Encounter for preprocedural laboratory examination (principal); Z11.52 Encounter for screening for COVID-19; R13.10 Dysphagia, unspecified | CPT/HCPCS: C9803; U0003; U0005 ==

== ENCOUNTER 2021-09-15 10:00 | Day surgery (SDC) | payer MEDICAID, SELFPAY ==
[2021-09-09 12:42] VITALS: BMI 24.7
[2021-09-15 10:23] VITALS: BP 145/80; PULSE 91; RESP 16; TEMP 36.8; O2SAT 98
--- NOTE | 2021-09-15 10:45 | HMH.ANESCL ---
[facility] Anesthesia Checklist - Patient Identification Patient Identification: Arm Band - Structural Data Admitted From: Home Planned Operative Procedure/s: EGD Consent for Planned Operative Procedure(s) Verified: Yes - NPO Status Verified Time NPO: 00:00 - Airway Assessment C-Spine Mobility Assessed: Yes TMJ Mobility Assessed: Yes Dentition: Good Dentition - Neurological Assessment Level of Consciousness: Awake Hx Seizures: No Numbness or tingling in extremities: No - Anesthesia Plan Anesthesia Risk discussed: Yes Anesthesia Plan: Verified ASA Class: II Anesthesia Type: MAC [facility] History I have reviewed the patient's past medical history: Yes Medical History: Reports:: Cancer (NHL, ALL Lukemia), Depression, Gastroesophageal Reflux Disease(GERD) Denies:: Diabetes Mellitus Type 1, Diabetes Mellitus Type 2, Seizures *Have you ever received a pneumonia vaccine?: No *Have you received a flu vaccine this season?: Yes Other Medical History: Reports: Fibromyalgia, Other (Avascular necrosis) Anesthesia experience/problems:: PONV Laterality Cases: Right: Arthroscopy Shoulder, Bilateral: Arthroscopy Hip Other Surgeries: Yes: Cholecystectomy, Hysterectomy-Total Amputation: No Fractures: No - *Social History Last grade of school completed: High school graduate Smoking Status: Never smoker Alcohol Intake: never Substance Use Type: denies use *Occupational Status:: unemployed Housing: house Household Members: none *Travel in the last 8 weeks: None - Psychiatric History Pschychiatric History:: Reports:: Depression Family Hx:: Hypertension
[2021-09-15 11:08] VITALS: O2SAT 97
--- NOTE | 2021-09-15 11:33 | P.PCN_ITS ---
- Procedure: Date: 09/15/21 Patient Date of :: 1970 Procedure Performed:: EGD Indications:: The patient is a 51 year old who presents for EGD evaluation of dysphagia symptom. She has had radiation treatments for a hisotry of non-hodgkin lymphoma in the past. Performing Provider:: Ollie Alba MD Referring Provider:: Rianna Salazar APRN Sedation:: See RN records Procedure:: The gastroscope was gently passed through the incisoral orifice into the oral cavity and under direct visualization the esophagus was intubated. The endoscope was passed down the esophagus, through the stomach, and into the duodenum. Color, texture, mucosa, and anatomy of the esophagus, stomach, and duodenum were carefully examined with the scope. Findings:: Oropharynx: normal Esophagus: Circumferential salmon colored mucosa spanning from approximately 31 to 37 cm. 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 Multiple biopsies obtained within this area in four quadrant fashion. Empiric dilatation was initially performed with a 54F bougie dilator. With gentle pressure, there was some resistance to advancing the bougie dilator in the upper esophagus and the dilator was removed. Relook EGD showed a small superficial tear within the upper third of the esophagus. Esophageal dilatation of remaining esophagus was then performed sequentially with a 15-18 mm tts balloon. At the end of the procedure, there was evidence of superficial tear within the upper and mid esophagus indicated of successful esophageal dilatation. EG Junction: measured at 37 cm Cardia: normal Fundus: Gastritis. Few small fundic gland polyps 2-3 mm in size. Biopsies obtained Body: Gastritis. Biopsies obtained Antrum: Gastritis. Biopsy obtained Duodenal bulb: Mild duodenitis. Biopsies obtained. Duodenum (second and third portion): normal Recommendations:: Await pathology results Omeprazole 40 mg once daily Repeat EGD in 1 year or sooner if clinically indicated Complications:: None Estimated blood obtained (mL): 2
[2021-09-15 11:40] VITALS: BP 99/59; PULSE 69; RESP 18; TEMP 36.4; O2SAT 91
[2021-09-15 11:50] VITALS: BP 105/78; PULSE 85; RESP 18; O2SAT 95
[2021-09-15 12:00] VITALS: BP 96/59; PULSE 69; RESP 18; O2SAT 96
[2021-09-15 12:16] VITALS: BP 129/60; PULSE 79; RESP 18; O2SAT 97
== END 2021-09-15 12:20 | disposition home or self-care (01) ==
LOC: OUTP 10:02
PROVIDERS: PCP Physician Assistant; Visit Provider Internal Medicine
PROC: 0DJ08ZZ Inspection of Upper Intestinal Tract, Via Natural or Artificial Opening Endoscopic (ICD-10-PCS; CPT 43235; principal; 2021-09-15 11:30)
DX: R13.10 Dysphagia, unspecified (principal); Z92.21 Personal history of antineoplastic chemotherapy; Z85.72 Personal history of non-Hodgkin lymphomas; K22.70 Barrett's esophagus without dysplasia; K31.7 Polyp of stomach and duodenum; K22.89 Other specified disease of esophagus; K29.80 Duodenitis without bleeding; F32.A Depression, unspecified; K21.9 Gastro-esophageal reflux disease without esophagitis; M79.7 Fibromyalgia; M87.08 Idiopathic aseptic necrosis of bone, other site
CPT/HCPCS: 43239; 43249; C1726; J2405

== ENCOUNTER → 2021-10-27 17:32 | Outpatient (CLI) | payer MEDICAID, SELFPAY | PROVIDERS: Visit Provider Physician Assistant | DX: N39.0 Urinary tract infection, site not specified (principal) | CPT/HCPCS: 87086; 87088; 87186 ==

== ENCOUNTER → 2022-01-07 08:21 | Outpatient (CLI) | payer MEDICAID, SELFPAY ==
--- NOTE | 2022-01-07 08:21 | MR_ITS ---
FINAL REPORT CLINICAL HISTORY: polyneuropathy RLE, HX AVASCULAR NECROSIS FINDINGS: Multiplanar MR imaging of the lumbar spine was performed without contrast. On the sagittal T2-weighted images, disc degeneration is seen at L5-S1. The vertebral alignment is normal. There is no evidence of fracture. No bony mass is identified. The conus has an unremarkable appearance. No significant canal stenosis is identified. L1-2: No significant central canal stenosis or neuroforaminal narrowing. L2-3: No significant central canal stenosis or neuroforaminal narrowing. L3-4: No significant central canal stenosis or neuroforaminal narrowing. L4-5: An annular bulge is present with mild bilateral neural foraminal narrowing. L5-S1: An annular bulge and facet arthropathy are present. There is moderate bilateral neural foraminal narrowing. IMPRESSION: Degenerative disc disease in the lower lumbar spine. Reviewed, Interpreted and Dictated by Justino Metz III, MD Transcribed by Harriet Bliss Authenticated and [facility]
== END ==
PROVIDERS: PCP Physician Assistant; Visit Provider Physician Assistant
DX: M25.50 Pain in unspecified joint (principal); M51.36 Other intervertebral disc degeneration, lumbar region; G62.9 Polyneuropathy, unspecified
CPT/HCPCS: 72148; 76376

== ENCOUNTER → 2022-01-17 14:11 | Outpatient (CLI) | payer MEDICAID, SELFPAY ==
[2022-01-17 15:16] LABS: Basophils # 0.1 K/mm3 (0-0.2); Basophils % 0.7 % (0.1-2.0); Eosinophils # 0.2 K/mm3 (0.0-0.4); Eosinophils % 2.6 % (0.1-12.0); Hematocrit 42.8 % (37.0-47.0); Hemoglobin 13.6 g/dL (12.2-16.2); Lymphocytes % 12.6 % (10-50); Mean Corpuscular HGB Conc 31.7 g/dL (31.8-35.4); Mean Corpuscular Hemoglobin 30.3 pg (27.0-31.2); Mean Corpuscular Volume 95.6 fl (81-99); Mean Platelet Volume 7.6 fl (7.4-10.4); Monocytes # 0.2 K/mm3 (0.1-1.0); Monocytes % 3.2 % (1.7-9.3); Neutrophils # 6.2 K/mm3 (1.8-7.8); Platelet Count 331 K/mm3 (142-424); Red Blood Count 4.48 M/mm3 (4.20-5.40); Red Cell Distribution Width 13.3 % (11.5-17.5); White Blood Count 7.6 K/mm3 (4.8-10.8)
[2022-01-17 15:46] LABS: Chloride 103 mmol/L (98-107); Potassium 3.9 mmoL/L (3.5-5.1); Sodium 137 mmol/L (136-145)
[2022-01-17 15:48] LABS: Blood Urea Nitrogen 16 mg/dl (7-17); Estimated Glomerular Filt Rate 89 ml/min (>60); GFR (African American) 107 ML/MIN (>60)
[2022-01-17 15:49] LABS: Alanine Aminotransferase 20 U/L (12-78); Albumin Level 4.3 g/dl (3.5-5.0); Albumin/Globulin Ratio 1.5 (1.1-1.8); Alkaline Phosphatase 106 U/L (38-126); Anion Gap 11.9 mEq/L (5-15); Aspartate Amino Transferase 26 U/L (14-36); Bilirubin,Total 0.7 mg/dl (0.2-1.3); Calcium 9.5 mg/dl (8.4-10.2); Carbon Dioxide 26 mmol/L (22.0-30.0); Cholesterol 210 mg/dl (140-200); Erythrocyte Sedimentation Rate 14 mm/hr (0-20); Globulin 2.8 g/dL (1.3-3.2); Glucose 134 mg/dl (74-100); Total Protein,Serum 7.1 g/dl (6.3-8.2); Triglycerides 160 mg/dl (30-150); VLDL Cholesterol 32 mg/dL (0-40)
[2022-01-17 15:50] LABS: Chol/HDL Ratio 4.6 (1-3.5); HDL Cholesterol 46 mg/dl (40-60)
[2022-01-17 15:56] LABS: C-Reactive Protein 1.2 mg/L (0-4)
[2022-01-17 16:01] LABS: Direct LDL Cholesterol 99.52 mg/dL (100-129)
[2022-01-17 16:08] LABS: 25-OH Vitamin D, Total 32.9 ng/mL (30-100)
[2022-01-17 16:26] LABS: Ferritin 27.8 ng/ml (6.24-137)
[2022-01-17 16:35] LABS: Thyroid Stimulating Hormone 1.98 uIU/mL (0.465-4.68)
[2022-01-17 16:39] LABS: Vitamin B12 340 pg/mL (239-931)
[2022-01-17 17:45] LABS: Hemoglobin A1C 5.1 % (4.0-6.0)
[2022-01-17 21:24] LABS: Folate 8.42 ng/mL
[2022-01-19 13:11] LABS: Albumin 3.7 g/dL (2.9-4.4); Alpha-1-Globulin 0.2 g/dL (0.0-0.4); Alpha-2-Globulin 0.8 g/dL (0.4-1.0); Gamma Globulin 1.2 g/dL (0.4-1.8)
[2022-01-19 15:47] LABS: Anti-Centromere B Antibodies <0.2 AI (0.0-0.9); Anti-DNA (DS) Ab Qn 2 IU/mL (0-9); Anti-Jo-1 <0.2 AI (0.0-0.9); Anti-Smith Antibody <0.2 AI (0.0-0.9); Antichromatin Antibodies <0.2 AI (0.0-0.9); Antiscleroderma-70 Antibodies <0.2 AI (0.0-0.9); RNP Antibodies 0.4 AI (0.0-0.9); Sjogren's Anti-SS-A <0.2 AI (0.0-0.9); Sjogren's Anti-SS-B <0.2 AI (0.0-0.9)
[2022-01-25 07:39] LABS: Lyme B. burgdorferi PCR Blood Negative (Negative)
== END ==
PROVIDERS: PCP Physician Assistant; Visit Provider Nurse Practitioner Family
DX: G62.9 Polyneuropathy, unspecified (principal); M25.50 Pain in unspecified joint; G89.4 Chronic pain syndrome; G25.81 Restless legs syndrome
CPT/HCPCS: 36415; 80053; 80061; 82306; 82607; 82728; 82746; 83036; 84155; 84165; 84443; 85025; 85651; 86140; 86225; 86235; 86334; 87476

== ENCOUNTER → 2022-06-13 16:24 | Outpatient (CLI) | payer MEDICAID, SELFPAY ==
--- NOTE | 2022-06-13 16:25 | MM_ITS ---
PROCEDURE INFORMATION: Exam: MG Bilateral Screening 3D Mammography Exam date and time: 06/13/2022 4:17 PM Age: 52 years old Clinical indication: Screening. Her maternal grandmother had breast cancer. TECHNIQUE: Imaging protocol: Bilateral Screening tomosynthesis and 2D mammography including computer-aided detection (CAD) when performed. COMPARISON: 1. MG MM DIG SCREENING MAMM BI W/CAD 05/17/2021 3:25 PM 2. MG MM DIG MAMM DX UNILAT RT CAD 05/15/2020 2:58 PM 3. MG MM DIG SCREENING MAMM BI W/CAD 05/04/2020 2:57 PM 4. MG SCBI MM Dig screening mamm BI w/CAD 09/07/2018 9:32 AM FINDINGS: MAMMOGRAPHY: Breast composition: There are scattered areas of fibroglandular density. Mass: No suspicious mass. Architectural distortion: None. Calcifications: No suspicious calcifications. Asymmetric density: None. Skin thickening: None. Axillary adenopathy: None. Other findings: Stable right biopsy clips and rectangular sub cm opacity in the inner upper aspect. IMPRESSION: No mammographic evidence of malignancy. Annual screening is recommended unless otherwise clinically indicated. ASSESSMENT: BI-RADS Category 2: Benign
== END ==
PROVIDERS: PCP Physician Assistant; Visit Provider Physician Assistant
DX: Z12.31 Encounter for screening mammogram for malignant neoplasm of breast (principal)
CPT/HCPCS: 77063; 77067

== ENCOUNTER → 2022-07-06 13:26 | Outpatient (CLI) | payer MEDICAID, SELFPAY ==
[2022-07-06 17:24] LABS: Amphetamine/Metha Screen,Urine Negative ng/ml (<1000)
[2022-07-06 17:26] LABS: Barbiturates Screen,Urine Negative ng/ml (<200); Benzodiazepines Screen,Urine Negative ng/ml (<200)
[2022-07-06 17:27] LABS: Cannabinoid Screen,Urine Positive ng/ml (<50); Cocaine Screen,Urine Negative ng/ml (<300)
[2022-07-06 17:28] LABS: Methadone Screen,Urine Negative ng/ml (<300)
[2022-07-06 17:29] LABS: Opiate Screen,Urine Positive ng/ml (<300); Phencyclidine Screen,Urine Negative ng/ml (<25)
== END ==
PROVIDERS: PCP Physician Assistant; Visit Provider Physician Assistant
DX: Z79.899 Other long term (current) drug therapy (principal)
CPT/HCPCS: 80305

== ENCOUNTER → 2022-07-12 10:37 | Outpatient (CLI) | payer MEDICAID, SELFPAY ==
--- NOTE | 2022-07-12 10:37 | US_ITS ---
FINAL REPORT CLINICAL HISTORY: ? bakers cyst left knee FINDINGS: Limited sonographic images were obtained of the left popliteal region. No mass or abnormal fluid collection is identified. IMPRESSION: No mass or abdominal fluid collection identified at the area of interest. Reviewed, Interpreted and Dictated by Justino Metz III, MD Transcribed by Santa Mancera Authenticated and [facility]
--- NOTE | 2022-07-12 10:37 | XR_ITS ---
FINAL REPORT CLINICAL HISTORY: left 5th digit pain, fell and jammed finger FINDINGS: RIGHT HAND Three views demonstrate no acute fracture. There is no dislocation. The visualized joint spaces are normally aligned. The joint spaces are preserved. The soft tissues are unremarkable. IMPRESSION: No acute bony abnormality. Reviewed, Interpreted and Dictated by Justino Metz III, MD Transcribed by Santa Mancera Authenticated and [facility]
== END ==
PROVIDERS: PCP Physician Assistant; Visit Provider Physician Assistant
DX: M25.562 Pain in left knee (principal); M79.644 Pain in right finger(s)
CPT/HCPCS: 73130; 76882

== ENCOUNTER → 2022-10-20 07:46 | Outpatient (CLI) | payer MEDICAID, SELFPAY ==
--- NOTE | 2022-10-20 07:46 | NM_ITS ---
APPROVED REPORT Exam: Nuclear Stress Test Indication: chest pain..fatigue Patient Location: Outpatient Stress Tech: Kenya Rg MA Tech:MICHELLE Spann RT(R)(N) Ht: 5 ft 2 in Wt: 143 lbs Bra Size: 36c HR: 78 bpm BP: 122/60 mmHg BSA: 1.66 m2 TID: 1.26 BMI: 26.1 History: chest pain..fatigue Procedure: Patient received 0.4 mg of intravenous Lexiscan, resting heart rate 78 bpm, resting blood pressure 122/60 mmHg, with Lexiscan maximum heart rate achieved was 109 bpm which is Less than 85 % of the maximum predicted heart rate and blood pressure was 127/74 mmHg. With Lexiscan, patient denied any complaint of chest pain. Electrocardiogram Electrocardiogram shows sinus rhythm, with Lexiscan there is less than 1.[address] segment depression noted from the baseline EKG. The EKG portion of the Lexiscan is nondiagnostic. Cardiac Stress and Resting SPECT Images: Cardiac Stress and Resting SPECT images were obtained using technetium 99m Myoview 30.4 mCi stress and 10.53 mCi at rest. Gated SPECT analysis of segmental wall motion and calculation of the ejection fraction also done. Prone images were also obtained. Cardiac prone images show uniform myocardial activity without segmental perfusion abnormality, computer derived ejection fraction is 64% with no regional wall motion abnormality, right ventricle is normal size and contractility. Conclusion: 1. The EKG portion of the Lexiscan is nondiagnostic. 2. No scintigraphic evidence of reversible ischemia seen, computer derived ejection fraction is 64% with no regional wall motion abnormality, right ventricle is normal size and contractility. There is mild transient ischemic dilatation of unknown clinical significance seen. 3. Likely normal Lexiscan Myoview study. Electronically signed by : Irving Garsia MD 10/20/2022 16:55:30
--- NOTE | 2022-10-20 08:45 | CA_ITS ---
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, Hx-pericardial perforation 2D Dimensions Aortic Root 2.66 cm Left Atrium 3.25 cm LVOT 1.74 cm (M/F) 1.5-2.5 M-Mode Dimensions RVDd 2.34 cm (0.9-2.6) LA Diam 3.57 cm (1.9-4.0) LVDd 4.14 cm (3.5-5.7) Ao Diam 2.86 cm (2.0-3.7) LVDs 2.57 cm (3.5-5.7) IVSd 0.77 cm (0.6-1.1) PWd 0.70 cm (0.6-1.1) EF (Teich) 68.50% EPSs 0.44 cm FS 37.90% EDV (Teich) 75.90 mL TAPSE 2.08 (<1.7) ESV (Teich) 23.90 mL LV Diastology E Decel Time 193.00 (160-240 msec) E/A Ratio 1.19 MED E' 9.80 (< 7 cm/sec) MED A' 11.20 cm/s E'/MED E' Ratio 8.06 (>14) LAT E' 12.70 (<10 cm/sec) LAT A' 11.50 cm/s E/LAT E' Ratio 6.22 (>14) Aortic Valve LVOT Max 98.00 (70-110 cm/s) LVOT VTI 20.25 cm AoV Peak Luis. 107.00 (50-130 cm/s) AO Peak GR. 4.60 mmHg AO Mean GR. 2.30 (<5 mmHg) AO VTI 21.34 (18-25 cm) ILEANA (VTI) 2.26 (2.5-4.5 cm2) Mitral Valve MV A Velocity 66.00 (40-130 cm/s) E/A Ratio 1.19 MV Decel. Time 193.00 (160-240 ms) MV PHT 53.00 ms Pulmonary Valve PV Peak Velocity 123.00 (50-150 cm/s) Tricuspid Valve TR P. Velocity 220.00 cm/s RAP Estimate 10.00 mmHg RVSP 29.40 mmHg Left Ventricle Left atrium is normal size left ventricle is normal size, estimated ejection fraction 55% with no regional wall motion abnormality, diastolic parameters are within normal range. Right Ventricle Right atrium and right ventricle are normal size and contractility. Aortic Valve Aortic valve is minimally thickened and fibrosed there is no aortic stenosis or aortic insufficiency. Mitral Valve Mitral valve is grossly normal, there is trace mitral regurgitation. Tricuspid Valve Tricuspid valve grossly normal, there is trace tricuspid regurgitation, calculated right ventricular systolic pressure 29 mmHg. Pulmonic Valve Pulmonic valve is poorly visualized. Great Vessels Aortic root normal size. Inferior vena cava normal size with normal inspiratory collapse. Pericardium No significant pericardial effusion noted. Conclusion 1. Normal left ventricular size preserved left ventricular systolic function, estimated ejection fraction 55% with no regional wall motion abnormality, diastolic parameters are within normal range. 2. Trace mitral and tricuspid regurgitation. Calculated right ventricular systolic pressure 29 mmHg. 3. No significant pericardial effusion noted. 4. Inferior vena cava normal size with normal inspiratory collapse. Electronically signed by : Irving Garsia MD 10/20/2022 17:22:49
--- NOTE | 2022-10-20 09:11 | CA_ITS ---
APPROVED REPORT Exam: Pharmacologic Technologist: [place] Irving, Ht: 5 ft 2 in Wt: 141 lbs BSA: 1.65 m2 HR: 74 bpm BP: 122/60 mmHg Medical History Medications: Omeprazole,,,,, PERCOCET,,,,, Ibuprofen,,,,, Tizanidine,,,,, Phenazopyridine,,,,, Alendronate,,,,, BuPROPION HCI,,,,, Mirabegron ER,,,,, Vitamin D2, D3,,,,, Terbinafine HCI,,,,, SiNmet,,,,, Stress Test Details Test: LEXISCAN Reason for pharmacologic stress test: physical limitation. HR Resting HR: 78 bpm Max Heart Rate (APMHR): 169.282514 bpm Max HR Achieved: 109 bpm Target HR (85% APMHR): 143.256578 bpm % of APMHR: 64.50 Recovery HR: 95 bpm BP Resting BP: 122.0/60.0 mmHg Max BP: 127.0/74.0 mmHg Recovery BP: 116.0/82.0 mmHg ECG Resting ECG: NSR, T wave abn in leads III & aVF Clinical Exercise duration: 04:00 min Highest Stage Achieved: Stress ECG Conclusion Symptoms: SOA, head & stomach discomfort. No CP. Arrhythmias/Ectopy: None ST-T Changes: No significant changes. Conclusion: Unremarkable Lexiscan stress. Myoview images reported separately. Test Summary REST . . . . . . . Resting REST 03:56 . . 78 . 122/ 60 . . Stage 1 01:00 . . 108 . . . . Stage 2 01:00 . . 104 . 124/ 77 . . Stage 3 01:00 . . 98 . 124/ 76 . . Stage 4 01:00 . . 98 . 127/ 74 . Stop exercise at 04:00 RECOVERY 01:00 . . 98 . . . . RECOVERY 02:00 . . 98 . 127/ 79 . . RECOVERY 03:00 . . 97 . 116/ 82 . . RECOVERY 03:18 . . 92 . 116/ 82 . . Electronically signed by : Irving Garsia MD 10/20/2022 16:47:19
== END ==
PROVIDERS: PCP Physician Assistant; Visit Provider Physician Assistant
DX: R07.9 Chest pain, unspecified (principal); C91.01 Acute lymphoblastic leukemia, in remission; I10 Essential (primary) hypertension; R94.31 Abnormal electrocardiogram [ECG] [EKG]
CPT/HCPCS: 78452; 93017; 93306; A9502; J2785

== ENCOUNTER 2022-11-01 09:11 | Day surgery (SDC) | payer MEDICAID, SELFPAY ==
[2022-11-01] VITALS (11 sets, daily range): BP systolic 114–149; BP diastolic 68–90; PULSE 64–82; RESP 15–18; TEMP 36.9–37; O2SAT 95–99; BMI 26.2
--- NOTE | 2022-11-01 07:03 | IR_ITS ---
APPROVED REPORT Patient Location: Outpatient PROCEDURES Left heart catheterization Left ventriculogram Selective coronary angiogram INDICATION Abnormal Myoview, Angina pectoris Informed consent was obtained prior to the procedure. COMPLICATIONS None Estimated Blood Loss: Less than 10 mls TECHNIQUE One percent lidocaine used to anesthetize the right anterior aspect of the wrist. The right radial artery was accessed via the Seldinger technique. A 6 Armenian sheath was placed in the right radial artery. 150 mg magnesium sulfate, 800 mcg of nitroglycerin, 1mg Lidocaine and 5000 U Heparin were given through the arterial sheath. The papa catheter was also used to perform left heart catheterization, left ventriculogram and selective coronary angiogram. At the end of the procedure the sheath was removed good hemostasis was achieved using Traclet band, patient was transferred to the postop holding area in stable condition. ANGIOGRAPHIC RESULTS The left main artery Normal The left anterior descending artery Has a proximal 30% stenosis The circumflex artery Large mild luminal regularities The right coronary artery Dominant mild luminal irregularities The CAMACHO ventriculogram reveals Normal slightly hyperdynamic at 75% The left ventricular end-diastolic pressure 20 mmHg IMPRESSION Mild to moderate proximal LAD disease as described above Hyperdynamic ventricle consistent with diastolic dysfunction Elevated LVEDP PLAN 1. Medical management for coronary artery disease 2. Treatment of diastolic dysfunction 3. Aggressive risk factor modification Electronically signed by : Sudhir Sanches MD 11/01/2022 18:11:47
[2022-11-01 09:50] LABS: Basophils # 0.1 K/mm3 (0-0.2); Basophils % 0.7 % (0.1-2.0); Eosinophils # 0.3 K/mm3 (0.0-0.4); Eosinophils % 4.4 % (0.1-12.0); Hematocrit 40.8 % (37.0-47.0); Hemoglobin 13.2 g/dL (12.2-16.2); Lymphocytes # 1.3 K/mm3 (0.7-4.5); Lymphocytes % 19.8 % (10-50); Mean Corpuscular HGB Conc 32.3 g/dL (31.8-35.4); Mean Corpuscular Hemoglobin 29.9 pg (27.0-31.2); Mean Corpuscular Volume 92.4 fl (81-99); Mean Platelet Volume 7.3 fl (7.4-10.4); Monocytes # 0.3 K/mm3 (0.1-1.0); Neutrophils # 4.4 K/mm3 (1.8-7.8); Neutrophils % 70.1 % (37.0-80.0); Platelet Count 387 K/mm3 (142-424); Red Blood Count 4.42 M/mm3 (4.20-5.40); Red Cell Distribution Width 13.4 % (11.5-17.5); White Blood Count 6.3 K/mm3 (4.8-10.8)
[2022-11-01 09:54] LABS: Chloride 105 mmol/L (98-107); Potassium 3.8 mmoL/L (3.5-5.1); Sodium 142 mmol/L (136-145)
[2022-11-01 09:57] LABS: Anion Gap 12.8 mEq/L (5-15); Blood Urea Nitrogen 18 mg/dl (7-17); Carbon Dioxide 28 mmol/L (22.0-30.0); Creatinine Clearance Estimated 85 mL/min (50-200); Estimated Glomerular Filt Rate 76 ml/min (>60); GFR (African American) 92 ML/MIN (>60)
[2022-11-01 09:58] LABS: Calcium 8.9 mg/dl (8.4-10.2); Glucose 107 mg/dl (74-100)
== END 2022-11-01 13:00 | disposition home or self-care (01) ==
LOC: CATHLAB 09:12
PROVIDERS: PCP Physician Assistant; Visit Provider Internal Medicine
DX: I25.118 Atherosclerotic heart disease of native coronary artery with other forms of angina pectoris (principal); I10 Essential (primary) hypertension; C91.01 Acute lymphoblastic leukemia, in remission; R94.39 Abnormal result of other cardiovascular function study; Z79.899 Other long term (current) drug therapy
CPT/HCPCS: 80048; 85025; 93458; 99152; C1725; C1769; J1644; J2405; Q9967

== ENCOUNTER 2023-03-03 11:36 | Day surgery (SDC) | payer MEDICAID, SELFPAY ==
[2023-03-01 12:05] VITALS: BMI 26.6
[2023-03-03 11:54] VITALS: BP 110/66; PULSE 90; RESP 18; TEMP 36.1; O2SAT 94
[2023-03-03 12:10] VITALS: O2SAT 98
--- NOTE | 2023-03-03 12:40 | EXP.ANES.CKL ---
[facility] Disclaimer: The information contained in this section may have been updated after the patient was seen, as this information can be updated by other users. Medical History Abnormal electrocardiogram [ECG] [EKG] Acute lymphoblastic leukemia in remission Allergic rhinitis Anxiety Bone pain Chest pain Chronic pain Chronic pain of both ankles Chronic pain syndrome Depression HTN (hypertension) Hyperlipidemia (~11/22/17) Insomnia Lesion of ear Lesion of right ear Osteoporosis Polyneuropathy Restless leg syndrome Urinary Incontinence Vitamin D deficiency (~11/22/17) Surgical History (Updated 03/03/23 @ 11:46 by Arlette Frederick RN) History of arthroscopy of shoulder History of cholecystectomy History of hip surgery History of hysterectomy Family History (Updated 03/03/23 @ 11:46 by Arlette Frederick RN) Other No significant family history Social History (Updated 03/03/23 @ 11:48 by Arlette Frederick RN) Smoking Status: Never smoker alcohol intake: never substance use type: denies use current occupational status: unemployed Travel in the last 8 weeks: None household members: none housing: house lives independently: Yes marital status: single education level: vocational service: No long term: No current occupational exposures/hazards: No caffeine: Yes do you feel safe at home: Yes victim of physical abuse: No victim of emotional abuse: No victim of sexual abuse: No would you like helpful sources: No [facility] Anesthesia Checklist Patient Identification Patient Identification: Verbal (Name & ) Structural Data Admitted From: Home Planned Operative Procedure/s: colonoscoy Consent for Planned Operative Procedure(s) Verified: Yes Airway Assessment Mallampati Score:: Class II C-Spine Mobility Assessed: Yes TMJ Mobility Assessed: Yes Dentition: Good Dentition Neurological Assessment Level of Consciousness: Awake, Alert and Appropriate Anesthesia Plan Anesthesia Risk discussed: Yes Anesthesia Plan: Verified ASA Class: II Anesthesia Type: MAC
--- NOTE | 2023-03-03 12:48 | HMH.SCOPE ---
Procedure: Date: 03/03/23 Patient Date of :: 1970 Procedure Performed:: Total colonoscopy to terminal ileum with polypectomy x 4 using cold biopsy and cold snare Indications:: Patient is a 52-year-old with history of acute leukemia and lymphoma. She has never had prior colonoscopy. She underwent Cologuard reportedly positive. Performing Provider:: Justino Vazquez MD Referring Provider:: Rianna Salazar Sedation:: MAC sedation Procedure:: Patient history was obtained and appropriate physical examination was performed. Patient's medications and allergies were reviewed. Informed consent was obtained after explaining the benefits, alternatives, and risks of the procedure including, but not limited to, bleeding, perforation, missed lesions, and adverse reaction to anesthesia medications. Patient was transported to endoscopy procedure room. Patient was connected to monitoring devices. Throughout the procedure the patient's blood pressure, pulse, and oxygen saturations were monitored continuously. Patient identification and planned procedure were verified by the staff. Patient was positioned in lateral decubitus position. Digital anorectal exam was performed. Variable stiffness Olympus colonoscope was inserted and advanced under direct visualization to the cecum. Adequacy of the colonic preparation was noted. The colonoscope was advanced a short distance into the terminal ileum. The colonoscope was then slowly withdrawn while carefully examining the color, texture, anatomy, and integrity of the mucosoa circumferentially. Within the rectum retroflexion was performed. Colonoscope was then withdrawn. . . Colonic preparation was good. She had some rare scattered diverticuli. In the sigmoid colon there was a small adenomatous polyp removed with cold snare. In the rectosigmoid region there was a small sessile adenomatous polyp removed with cold snare. Within the rectum there were a couple of hyperplastic appearing polyps 1 removed with cold snare and 1 removed with cold biopsy forceps. Findings:: Polyps as noted above Rare diverticuli Recommendations:: Repeat colonoscopy pending pathology, likely 3 years Complications:: None immediately apparent Estimated blood obtained (mL): 2 Colonoscopy Component Colonoscopy Component Was a colonoscopy performed during today's procedure?: Yes Recommended follow up colonoscopy of at least 10 years?: No If no, follow up colonoscopy recommended in ___ years?: 3 Reason for not recommending >/= 10 yr follow-up interval?: Polyps
[2023-03-03 12:50] VITALS: BP 101/60; PULSE 84; RESP 14; TEMP 36.4; O2SAT 99
[2023-03-03 13:00] VITALS: BP 110/63; PULSE 81; RESP 16; O2SAT 100
[2023-03-03 13:10] VITALS: BP 132/78; PULSE 80; RESP 16; O2SAT 100
== END 2023-03-03 13:15 | disposition home or self-care (01) ==
PROVIDERS: PCP Physician Assistant; Visit Provider Surgery
PROC: 0DJD8ZZ Inspection of Lower Intestinal Tract, Via Natural or Artificial Opening Endoscopic (ICD-10-PCS; CPT 45380; principal; 2023-03-03 12:30)
DX: R19.5 Other fecal abnormalities (principal); Z85.6 Personal history of leukemia; Z85.72 Personal history of non-Hodgkin lymphomas; K57.32 Diverticulitis of large intestine without perforation or abscess without bleeding; D12.5 Benign neoplasm of sigmoid colon; D12.7 Benign neoplasm of rectosigmoid junction
CPT/HCPCS: 45380; 45385

== ENCOUNTER → 2023-06-14 13:50 | Outpatient (CLI) | payer MEDICAID, SELFPAY ==
[2023-06-14 13:49] LABS: Basophils % 0.5 % (0.1-2.0); Eosinophils # 0.3 K/mm3 (0.0-0.4); Eosinophils % 4.8 % (0.1-12.0); Hematocrit 38.7 % (37.0-47.0); Hemoglobin 12.6 g/dL (12.2-16.2); Lymphocytes % 19.8 % (10-50); Mean Corpuscular HGB Conc 32.6 g/dL (31.8-35.4); Mean Corpuscular Volume 92.2 fl (81-99); Mean Platelet Volume 7.5 fl (7.4-10.4); Monocytes # 0.3 K/mm3 (0.1-1.0); Monocytes % 5.3 % (1.7-9.3); Neutrophils # 3.6 K/mm3 (1.8-7.8); Neutrophils % 69.6 % (37.0-80.0); Platelet Count 303 K/mm3 (142-424); Red Cell Distribution Width 13.3 % (11.5-17.5); White Blood Count 5.2 K/mm3 (4.8-10.8)
[2023-06-14 14:03] LABS: Alanine Aminotransferase 13 U/L (12-78); Albumin Level 4.2 g/dl (3.5-5.0); Albumin/Globulin Ratio 1.4 (1.1-1.8); Alkaline Phosphatase 118 U/L (38-126); Aspartate Amino Transferase 27 U/L (14-36); Bilirubin,Total 0.5 mg/dl (0.2-1.3); Blood Urea Nitrogen 20 mg/dl (7-17); Calcium 9.1 mg/dl (8.4-10.2); Carbon Dioxide 24 mmol/L (22.0-30.0); Chloride 105 mmol/L (98-107); Chol/HDL Ratio 2.4 (1-3.5); Cholesterol 133 mg/dl (140-200); Estimated Glomerular Filt Rate 75 ml/min (>60); GFR (African American) 91 ML/MIN (>60); Globulin 2.9 g/dL (1.3-3.2); Glucose 99 mg/dl (74-100); HDL Cholesterol 56 mg/dl (40-60); Sodium 139 mmol/L (136-145); Total Protein,Serum 7.1 g/dl (6.3-8.2); Triglycerides 134 mg/dl (30-150); VLDL Cholesterol 27 mg/dL (0-40)
[2023-06-14 14:15] LABS: Direct LDL Cholesterol 52.11 mg/dL (100-129)
[2023-06-14 14:18] LABS: 25-OH Vitamin D, Total 29.9 ng/mL (30-100)
[2023-06-14 14:34] LABS: Thyroid Stimulating Hormone 2.27 uIU/mL (0.465-4.68)
[2023-06-14 14:51] LABS: Iron 105 ug/dL (37-170)
[2023-06-14 14:54] LABS: Vitamin B12 352 pg/mL (239-931)
[2023-06-14 15:17] LABS: Total Iron Binding Capacity 350 ug/dL (265-497)
[2023-06-14 15:28] LABS: Ferritin 34.2 ng/ml (11.1-264)
== END ==
PROVIDERS: PCP Physician Assistant; Visit Provider Physician Assistant
DX: R53.83 Other fatigue (principal); E55.9 Vitamin D deficiency, unspecified; Z68.25 Body mass index [BMI] 25.0-25.9, adult
CPT/HCPCS: 80053; 80061; 82306; 82607; 82728; 83540; 83550; 84443; 85025

== ENCOUNTER → 2023-07-14 16:06 | Outpatient (CLI) | payer MEDICAID, SELFPAY ==
--- NOTE | 2023-07-14 16:07 | MM_ITS ---
PROCEDURE INFORMATION: Exam: MG Bilateral Screening 3D Mammography Exam date and time: 07/14/2023 3:55 PM Age: 53 years old Clinical indication: Screening mammogram TECHNIQUE: Imaging protocol: Bilateral Screening tomosynthesis and 2D mammography including computer-aided detection (CAD) when performed. COMPARISON: 1. MG MM DIG SCREENING MAMM BI W/CAD 06/13/2022 4:17 PM 2. MG MM DIG SCREENING MAMM BI W/CAD 05/17/2021 3:25 PM 3. MG MM DIG MAMM DX UNILAT RT CAD 05/15/2020 2:58 PM 4. MG MM DIG SCREENING MAMM BI W/CAD 05/04/2020 2:57 PM FINDINGS: MAMMOGRAPHY: Breast composition: The breast is heterogeneously dense, which may obscure small masses. Mass: Stable benign-appearing subcentimeter nodules are present in the bilateral breasts. No new or morphologically suspicious nodule has developed to suggest malignancy. Architectural distortion: No new or suspicious architectural distortion. Calcifications: No new or suspicious calcifications are present Asymmetric density: No new or suspicious asymmetric density is present Skin thickening: None. Axillary adenopathy: None. IMPRESSION: No mammographic evidence of malignancy. Recommend annual screening mammography unless otherwise clinically indicated. ASSESSMENT: BI-RADS category 2: Benign
== END ==
LOC: RAD 16:06
PROVIDERS: PCP Physician Assistant; Visit Provider Physician Assistant
DX: Z12.31 Encounter for screening mammogram for malignant neoplasm of breast (principal)
CPT/HCPCS: 77063; 77067

== ENCOUNTER 2023-08-09 18:43 | Outpatient (CLI) | payer MEDICAID, SELFPAY ==
[2023-08-09 20:09] LABS: Amphetamine/Metha Screen,Urine Negative ng/ml (<1000)
[2023-08-09 20:10] LABS: Barbiturates Screen,Urine Negative ng/ml (<200); Benzodiazepines Screen,Urine Negative ng/ml (<200)
[2023-08-09 20:11] LABS: Cannabinoid Screen,Urine Positive ng/ml (<50); Cocaine Screen,Urine Negative ng/ml (<300)
[2023-08-09 20:12] LABS: Methadone Screen,Urine Negative ng/ml (<300)
[2023-08-09 20:13] LABS: Opiate Screen,Urine Positive ng/ml (<300)
[2023-08-09 20:14] LABS: Phencyclidine Screen,Urine Negative ng/ml (<25)
== END 2023-08-09 23:59 ==
LOC: LAB.DROPOF 18:43
PROVIDERS: PCP Physician Assistant; Visit Provider Physician Assistant
DX: Z79.899 Other long term (current) drug therapy (principal)
CPT/HCPCS: 80307

== ENCOUNTER 2023-11-27 14:15 | Outpatient (CLI) | payer MEDICAID, SELFPAY ==
[2023-11-27 15:45] LABS: Blood Urea Nitrogen 22 mg/dl (7-17); Estimated Glomerular Filt Rate 75 ml/min (>60); GFR (African American) 91 ML/MIN (>60)
[2023-11-27 15:47] LABS: Microscopic, Urine URINE MICROSCOPIC (MICROSCOPIC)
[2023-11-27 16:14] LABS: Appearance,Urine CLEAR (Clear); Bilirubin,Urine Negative (Negative); Blood, Urine 2+ (Negative); Color,Urine YELLOW (Yellow); Glucose,Urine (UA) Negative (Negative); Ketones,Urine TRACE (Negative); Leukocyte Esterase,Urine Negative (Negative); Nitrate,Urine Negative (Negative); Protein,Urine Negative (Negative); Specific Gravity, Urine >= 1.030 (1.005-1.030); Urobilinogen,Urine 0.2 EU/dl (0.2)
[2023-11-27 16:44] LABS: Bacteria,Urine 2+ /lpf; RBC,Urine 20-50 #/hpf (0-3); Squamous Epithelial Cell,Urine Occasional #/hpf (0-5); WBC,Urine Occasional #/hpf (0-3)
[2023-11-27 16:45] LABS: Renal Epithelial Cells,Urine Occasional #/lpf (0)
== END 2023-11-27 23:59 | disposition home or self-care (01) ==
LOC: LAB 14:15
PROVIDERS: PCP Physician Assistant; Visit Provider Urology
DX: N39.41 Urge incontinence (principal); R31.9 Hematuria, unspecified
CPT/HCPCS: 36415; 81001; 82565; 84520; 87086

== ENCOUNTER 2023-12-07 15:13 | Outpatient (CLI) | payer MEDICAID, SELFPAY ==
--- NOTE | 2023-12-07 15:14 | US_ITS ---
FINAL REPORT CLINICAL HISTORY: UTI FINDINGS: Limited sonographic images of the bladder were obtained. The bladder is incompletely distended. Bladder volume is 20 mL. Postvoid residual is 0.79 mL. IMPRESSION: No significant postvoid residual. Reviewed, Interpreted and Dictated by Justino Metz III, MD Transcribed by Harriet Bliss Authenticated and [facility]
--- NOTE | 2023-12-07 15:14 | US_ITS ---
FINAL REPORT CLINICAL HISTORY: .UTI FINDINGS: The right kidney measures 10.4 cm in length. It is normal in echogenicity. There is no hydronephrosis. The left kidney measures 11.3 cm in length. It is normal in echogenicity. There is no hydronephrosis. The urinary bladder is unremarkable. IMPRESSION: Normal renal ultrasound. Reviewed, Interpreted and Dictated by Justino Metz III, MD Transcribed by Harriet Bliss Authenticated and [facility]
== END 2023-12-07 23:59 | disposition home or self-care (01) ==
LOC: RAD 15:14
PROVIDERS: PCP Physician Assistant; Visit Provider Urology
DX: N39.41 Urge incontinence (principal)
CPT/HCPCS: 76770; 76857

== ENCOUNTER 2023-12-11 16:15 | Outpatient (CLI) | payer MEDICAID, SELFPAY ==
[2023-12-11 16:07] LABS: Microscopic, Urine URINE MICROSCOPIC (MICROSCOPIC)
[2023-12-11 16:36] LABS: Appearance,Urine CLEAR (Clear); Bilirubin,Urine Negative (Negative); Blood, Urine 2+ (Negative); Color,Urine YELLOW (Yellow); Glucose,Urine (UA) Negative (Negative); Ketones,Urine Negative (Negative); Leukocyte Esterase,Urine Negative (Negative); Nitrate,Urine Negative (Negative); Protein,Urine Negative (Negative); Urobilinogen,Urine 0.2 EU/dl (0.2)
[2023-12-11 17:27] LABS: Bacteria,Urine 1+ /lpf; WBC,Urine Occasional #/hpf (0-3)
== END 2023-12-11 23:59 | disposition home or self-care (01) ==
LOC: LAB.DROPOF 16:16
PROVIDERS: PCP Urology; Visit Provider Urology
DX: N39.41 Urge incontinence (principal)
CPT/HCPCS: 81001

== ENCOUNTER 2023-12-27 10:28 | Outpatient (CLI) | payer MEDICAID, SELFPAY ==
--- NOTE | 2023-12-27 10:28 | CT_ITS ---
FINAL REPORT TECHNIQUE: Axial CT images of the abdomen and pelvis were obtained before and after the administration of IV contrast. Oral contrast was administered.This study was performed with techniques to keep radiation doses as low as reasonably achievable (ALARA). Individualized dose reduction techniques using automated exposure control or adjustment of mA and/or kV according to the patient''s size were employed. CLINICAL HISTORY: Hematuria FINDINGS: Abdomen: There is an 18 mm nodule in the right lower lobe with eccentric calcification. This is not definitely a granuloma. Recommend PET-CT for further evaluation. The heart is normal in size. The liver has an unremarkable appearance, without evidence of mass or biliary duct dilatation. The spleen is unremarkable. No adrenal masses present. The pancreas has an unremarkable appearance. There is less than 3 mm nonobstructing stone in the lower pole of the left kidney. There are several less than 1 cm left renal masses consistent with small cysts. There is a 6 mm low-attenuation mass in the posterior left kidney with questionable small amount of enhancement. It is difficult to accurately characterize secondary to small size. Mild vascular calcification is identified. The aorta is normal in caliber. There is no free fluid or adenopathy. Pelvis: The appendix is normal. The bladder is suboptimally visualized secondary to streak artifact. Patient is status post hysterectomy. No inflammatory process is seen. There is no evidence of mass or adenopathy. There is no evidence of bowel obstruction. There are bilateral hip arthroplasties. IMPRESSION: Small nonobstructing left renal stone. Posterior left renal mass measures 6 mm with questionable enhancement. Recommend follow-up CT in 6-12 months. Right lower lobe nodule measures 18 mm. Recommend PET-CT for further evaluation. Reviewed, Interpreted and Dictated by Justino Metz III, MD Transcribed by Harriet Bliss Authenticated and [facility]
[2023-12-27] MEDS: IOPAMIDOL-370 (76%);100ML BOTTLE 75 ML IV (11:14)
[2023-12-27] MEDS: SODIUM CHLORIDE 0.9% 10ML SYR (RAD ONLY) 10 ML IV (11:14)
== END 2023-12-27 23:59 | disposition home or self-care (01) ==
LOC: RAD 10:28
PROVIDERS: PCP Physician Assistant; Visit Provider Urology
DX: R31.9 Hematuria, unspecified (principal)
CPT/HCPCS: 74178; Q9967

== ENCOUNTER 2024-01-12 08:52 | Day surgery (SDC) | payer MEDICAID, SELFPAY ==
[2024-01-10 12:36] VITALS: BMI 25.3
[2024-01-12 09:08] VITALS: BP 135/88; PULSE 92; RESP 16; TEMP 36.7; O2SAT 96
[2024-01-12] MEDS: LIDOCAINE 2% UROJET 10ML 10 ML (09:45)
[2024-01-12] MEDS: LACTATED RINGERS 1000ML 1,000 ML 50 ML IV (09:45)
--- NOTE | 2024-01-12 09:46 | HMH.PROCNOTE ---
[facility] Procedure Note Date: 01/12/24 Time: 09:46 Procedure Note:: Preop diagnosis hematuria Postop diagnosis hematuria/urethritis Operative note: Cystoscopy the patient was brought to the cystoscopy treatment room. She was prepped in the standard fashion. Her bladder was emptied with a catheter. Her urethra was anesthetized with Xylocaine jelly. Patient underwent flexible cystoscopy. Her ureteral orifice ease are normal bilaterally with clear reflux of urine. Her bladder is [place] pink in color throughout without evidence of bladder stone tumor hemorrhage or infection. The patient does have moderate urethritis and I think this is the likely source for the microscopic hematuria. She tolerated the procedure well.
[2024-01-12 09:49] VITALS: BP 123/72; PULSE 74; RESP 18; O2SAT 98
[2024-01-12 10:05] VITALS: BP 123/72; PULSE 74; RESP 18; O2SAT 98
== END 2024-01-12 10:05 | disposition home or self-care (01) ==
PROVIDERS: PCP Physician Assistant; Visit Provider Urology
PROC: 0TJB8ZZ Inspection of Bladder, Via Natural or Artificial Opening Endoscopic (ICD-10-PCS; CPT 52000; principal; 2024-01-12 09:45)
DX: R31.9 Hematuria, unspecified (principal); N34.2 Other urethritis
CPT/HCPCS: 52000; J7120

== ENCOUNTER 2024-01-26 13:51 | Outpatient (CLI) | payer MEDICAID, SELFPAY ==
[2024-01-26 18:51] LABS: Basophils % 0.5 % (0.1-2.0); Eosinophils # 0.2 K/mm3 (0.0-0.4); Eosinophils % 3.1 % (0.1-12.0); Hematocrit 40.5 % (37.0-47.0); Hemoglobin 13.4 g/dL (12.2-16.2); Lymphocytes # 0.9 K/mm3 (0.7-4.5); Lymphocytes % 13.1 % (10-50); Mean Corpuscular Volume 93.8 fl (81-99); Mean Platelet Volume 8.3 fl (7.4-10.4); Monocytes # 0.3 K/mm3 (0.1-1.0); Monocytes % 3.9 % (1.7-9.3); Neutrophils # 5.5 K/mm3 (1.8-7.8); Neutrophils % 79.4 % (37.0-80.0); Platelet Count 301 K/mm3 (142-424); Red Blood Count 4.32 M/mm3 (4.20-5.40); Red Cell Distribution Width 13.5 % (11.5-17.5)
[2024-01-26 19:36] LABS: Alanine Aminotransferase 32 U/L (12-78); Albumin Level 4.6 g/dl (3.5-5.0); Albumin/Globulin Ratio 1.6 (1.1-1.8); Alkaline Phosphatase 105 U/L (38-126); Anion Gap 10.6 mEq/L (5-15); Aspartate Amino Transferase 27 U/L (14-36); Bilirubin,Total 0.6 mg/dl (0.2-1.3); Blood Urea Nitrogen 14 mg/dl (7-17); Calcium 9.6 mg/dl (8.4-10.2); Carbon Dioxide 30 mmol/L (22.0-30.0); Chloride 105 mmol/L (98-107); Chol/HDL Ratio 2.9 (1-3.5); Cholesterol 159 mg/dl (140-200); Estimated Glomerular Filt Rate 75 ml/min (>60); GFR (African American) 91 ML/MIN (>60); Globulin 2.8 g/dL (1.3-3.2); Glucose 75 mg/dl (74-100); HDL Cholesterol 54 mg/dl (40-60); Potassium 4.6 mmoL/L (3.5-5.1); Sodium 141 mmol/L (136-145); Total Protein,Serum 7.4 g/dl (6.3-8.2); Triglycerides 156 mg/dl (30-150); VLDL Cholesterol 31 mg/dL (0-40)
[2024-01-26 19:49] LABS: Direct LDL Cholesterol 51.57 mg/dL (100-129)
[2024-01-26 19:52] LABS: 25-OH Vitamin D, Total 44.1 ng/mL (30-100)
[2024-01-26 20:25] LABS: Vitamin B12 400 pg/mL (239-931)
== END 2024-01-26 23:59 | disposition home or self-care (01) ==
LOC: LAB.DROPOF 01-27 10:38
PROVIDERS: PCP Physician Assistant; Visit Provider Physician Assistant
DX: R53.83 Other fatigue (principal); I10 Essential (primary) hypertension; Z68.25 Body mass index [BMI] 25.0-25.9, adult
CPT/HCPCS: 80050; 80053; 80061; 82306; 82607; 83036; 84443; 85025

== ENCOUNTER 2024-04-15 12:00 | Outpatient (CLI) | payer MEDICAID, SELFPAY ==
[2024-04-15 15:42] LABS: Microscopic, Urine URINE MICROSCOPIC (MICROSCOPIC)
[2024-04-15 16:58] LABS: Appearance,Urine CLEAR (Clear); Bilirubin,Urine Negative (Negative); Blood, Urine 1+ (Negative); Color,Urine YELLOW (Yellow); Glucose,Urine (UA) Negative (Negative); Ketones,Urine TRACE (Negative); Leukocyte Esterase,Urine Negative (Negative); Nitrate,Urine Negative (Negative); Protein,Urine Negative (Negative); Specific Gravity, Urine >= 1.030 (1.005-1.030); Urobilinogen,Urine 0.2 EU/dl (0.2)
[2024-04-15 17:11] LABS: Calcium Oxalate Crystals,Urine 2+ /lpf
== END 2024-04-15 23:59 | disposition home or self-care (01) ==
LOC: LAB.DROPOF 04-16 08:47
PROVIDERS: PCP Urology; Visit Provider Urology
DX: N28.89 Other specified disorders of kidney and ureter (principal); N39.41 Urge incontinence
CPT/HCPCS: 81001; 87086

== ENCOUNTER 2024-06-10 10:00 | Outpatient (CLI) | payer MEDICAID, SELFPAY ==
--- NOTE | 2024-06-10 10:00 | CT_ITS ---
FINAL REPORT CLINICAL HISTORY: renal mass protocol COMPARISON: 12/27/2023 FINDINGS: The lung bases demonstrate a 19 mm nodule in the right lower lobe which is well-circumscribed. The majority of this appears to be cystic with a mean attenuation value of 0 Hounsfield units. Nodule contains a few calcifications but appears to be entirely stable.. There are scattered calcified granulomas in the liver and spleen which are otherwise unremarkable. The adrenals are normal. The pancreas is unremarkable. Gallbladder is absent. There are 2, tiny low-attenuation foci in the posterior left renal cortex measuring up to 6 mm which are stable. This is best seen on image 33 of series 5. There is no definite contrast-enhancement. There is streak artifact from bilateral hip prosthesis. Urinary bladder is incompletely distended. There is no pelvic mass or inflammation. Appendix is normal. IMPRESSION: Stable, 6 mm low-attenuation focus in the posterior left renal cortex highly favored to represent a benign simple cyst. Recommend 1 year follow-up. Stable pulmonary nodule favored benign. As recommended on prior exam, PET/CT would be helpful for further evaluation. Reviewed, Interpreted and Dictated by Enrique Ramirez MD Transcribed by Laura Espinosa Authenticated and [facility]
[2024-06-10 10:31] LABS: Blood Urea Nitrogen 20 mg/dl (7-17); Estimated Glomerular Filt Rate 88 ml/min (>60); GFR (African American) 106 ML/MIN (>60)
[2024-06-10] MEDS: SODIUM CHLORIDE 0.9% 10ML SYR (RAD ONLY) 10 ML IV (11:19)
[2024-06-10] MEDS: BARIUM SULFATE(READI-CAT2);450ML BOTTLE 450 ML PO (11:19)
[2024-06-10] MEDS: IOPAMIDOL-370 (76%);100ML BOTTLE 75 ML IV (11:19)
== END 2024-06-10 23:59 | disposition home or self-care (01) ==
LOC: RAD 10:00
PROVIDERS: PCP Urology; Visit Provider Urology
DX: N28.89 Other specified disorders of kidney and ureter (principal)
CPT/HCPCS: 36415; 74178; 82565; 84520; Q9967

== ENCOUNTER 2024-06-17 15:41 | Outpatient (CLI) | payer MEDICAID, SELFPAY ==
[2024-06-17 15:40] LABS: Microscopic, Urine URINE MICROSCOPIC (MICROSCOPIC)
[2024-06-17 15:58] LABS: Appearance,Urine CLEAR (Clear); Bilirubin,Urine Negative (Negative); Blood, Urine 2+ (Negative); Color,Urine YELLOW (Yellow); Glucose,Urine (UA) Negative (Negative); Ketones,Urine Negative (Negative); Leukocyte Esterase,Urine Negative (Negative); Nitrate,Urine Negative (Negative); Protein,Urine Negative (Negative); Specific Gravity, Urine >= 1.030 (1.005-1.030); Urobilinogen,Urine 0.2 EU/dl (0.2)
[2024-06-17 17:52] LABS: RBC,Urine Occasional #/hpf (0-3)
== END 2024-06-17 23:59 | disposition home or self-care (01) ==
LOC: LAB.DROPOF 15:41
PROVIDERS: PCP Urology; Visit Provider Urology
DX: N28.1 Cyst of kidney, acquired (principal)
CPT/HCPCS: 81001

== ENCOUNTER 2024-07-15 12:45 | Outpatient (CLI) | payer MEDICAID, SELFPAY ==
--- NOTE | 2024-07-15 12:48 | MM_ITS ---
PROCEDURE INFORMATION: Exam: MG Bilateral Screening 3D Mammography Exam date and time: 07/15/2024 12:39 PM Age: 54 years old Clinical indication: Screening examination TECHNIQUE: Imaging protocol: Bilateral Screening tomosynthesis and 2D mammography including computer-aided detection (CAD) when performed. COMPARISON: 1. MG MM DIG SCREENING MAMM BI W/CAD 07/14/2023 3:55 PM 2. MG MM DIG SCREENING MAMM BI W/CAD 06/13/2022 4:17 PM FINDINGS: MAMMOGRAPHY: Breast composition: There are scattered areas of fibroglandular density. Mass: None. Architectural distortion: None. Calcifications: No suspicious calcifications. Asymmetric density: None. Skin thickening: None. Axillary adenopathy: None. IMPRESSION: No mammographic evidence of malignancy. Annual screening is recommended unless otherwise clinically indicated. ASSESSMENT: BI-RADS Category 1: Negative.
== END 2024-07-15 23:59 | disposition home or self-care (01) ==
LOC: RAD 12:45
PROVIDERS: PCP Urology; Visit Provider Physician Assistant
DX: Z12.31 Encounter for screening mammogram for malignant neoplasm of breast (principal)
CPT/HCPCS: 77063; 77067

== ENCOUNTER 2024-09-19 13:13 | Outpatient (CLI) | payer MEDICAID, SELFPAY ==
--- NOTE | 2024-09-19 13:17 | XR_ITS ---
FINAL REPORT CLINICAL HISTORY: right shoulder pain shoulder resurfacing 2017 FINDINGS: Three views show no evidence of acute displaced fracture or dislocation of the visualized bony architecture. There are surgical changes from partial arthroplasty. The hardware is unremarkable. IMPRESSION: Postoperative changes without acute findings. Reviewed, Interpreted and Dictated by Micaela Spencer MD Transcribed by Harriet Bliss Authenticated and [facility]
--- NOTE | 2024-09-19 13:17 | XR_ITS ---
FINAL REPORT CLINICAL HISTORY: right wrist pain radiating up arm FINDINGS: Three views show no evidence of an acute, displaced fracture or dislocation of the visualized bony architecture. The joint spaces appear normal. The bones are osteopenic. IMPRESSION: No acute findings. Reviewed, Interpreted and Dictated by Micaela Spencer MD Transcribed by Harriet Bliss Authenticated and . [facility]
== END 2024-09-19 23:59 | disposition home or self-care (01) ==
LOC: RAD 13:15
PROVIDERS: Visit Provider Physician Assistant Surgical
DX: M25.531 Pain in right wrist (principal); M25.511 Pain in right shoulder
CPT/HCPCS: 73030; 73110

== ENCOUNTER 2024-09-23 10:00 | Outpatient (CLI) | payer MEDICAID, SELFPAY ==
[2024-09-23 16:33] LABS: Microscopic, Urine URINE MICROSCOPIC (MICROSCOPIC)
[2024-09-23 19:17] LABS: Appearance,Urine CLEAR (Clear); Bilirubin,Urine Negative (Negative); Blood, Urine 2+ (Negative); Color,Urine YELLOW (Yellow); Glucose,Urine (UA) Negative (Negative); Ketones,Urine Negative (Negative); Leukocyte Esterase,Urine TRACE (Negative); Nitrate,Urine Negative (Negative); Protein,Urine TRACE (Negative); Specific Gravity, Urine >= 1.030 (1.005-1.030); Urobilinogen,Urine 0.2 EU/dl (0.2)
[2024-09-23 19:59] LABS: Amorphous Sediment,Urine 3+ /lpf; Bacteria,Urine 1+ /lpf; Calcium Oxalate Crystals,Urine 1+ /lpf; WBC,Urine Occasional #/hpf (0-3)
== END 2024-09-23 23:59 | disposition home or self-care (01) ==
LOC: LAB.DROPOF 09-25 12:28
PROVIDERS: PCP Urology; Visit Provider Urology
DX: N32.81 Overactive bladder (principal); R31.9 Hematuria, unspecified
CPT/HCPCS: 81001

== ENCOUNTER 2025-01-27 11:21 | Outpatient (CLI) | payer MEDICAID, SELFPAY ==
--- OUTSIDE RECORDS SUMMARY | 2025-01-27 11:38 | XMS_ITS | Clinical Summary ---
Author Organization [facility] Address [address] [place] [address] Care Team Providers Care Corporate Development Officer Name Role Phone Henrry Salazarie Joan MENENDEZ Primary Care Provider [phone] Allergies Active Allergy Reactions Criticality Noted Date Comments Codeine Other - please docum ent in the comment field Low 12/11/2013 Medications CALCIUM PO 12/11/2013 Active buPROPion (Wellbutrin) 75 MG tablet 12/17/2013 Active Ibuprofen (Advil Migraine) 200 MG capsule 04/08/2014 Active omeprazole OTC (PriLOSEC OTC) 20 MG EC tablet 02/04/2014 Act megan atorvastatin (Lipitor) 10 MG tablet Take 10 mg by mouth every night. 11/14/2020 Active buPROPion XL (Wellbutrin XL) 150 MG 24 hr tablet Take 150 mg by mouth 1 (one) time each day. 11/14/2020 Active carbidopa-levodo pa CR (Sinemet CR) 50-200 MG ER tablet Take 1 tablet by mouth every 12 (twelve) hours. 12/25/2020 Active cetirizine (ZyrTEC) 10 MG tablet Take 10 mg by mouth 1 (one) time each day. 10/20/2020 Active cholecalciferol (Vitamin D3) 25 MCG (1000 UT) tablet 1,000 Units. 05/08/2020 Active fluticasone (Flonase) 50 MCG/ACT nasal spray 50 sprays. 05/07/2020 Active HYDROcodone-acet aminophen ([place]) 7.5-325 MG tablet Take 1 tablet by mouth 3 (three) times a day. 12/02/2020 Active omeprazole (PriLOSEC) [address] capsule Take 20 mg by mouth 2 (two) times a day. 07/14/2020 Active rOPINIRole (Requip) 0.5 MG tablet 0.5 mg. 12/28/2020 Active traZODone (Desyrel) 50 MG tablet 50 mg. 07/16/2020 Active Ibuprofen (Advil Migraine) 200 MG capsule 200 mg. 04/08/2014 Active Social History Tobacco Use Types Packs/Day Years Used Date Smoking Tobacco: Former Smokeless Tobacco: Never Alcohol Use Standard Drinks/Week Comments Yes 0 (1 standard drink = 0.6 oz pure alcohol) Alcoholic Drinks/day: Social alcohol use Comments Unknown Sex and Gender Information Value Date Recorded Sex Assigned at Female 01/14/2021 1:57 PM EDT Legal Sex Female 8:02 PM EDT Gender Identity Female 01/14/2021 1:57 PM EDT Sexual Orientation Straight 01/14/2021 1: 57 PM EDT Last Filed Vital Signs Vital Sign Reading Time Taken Comments Blood Pressure 126/80 01/14/2021 3:46 PM EDT Pulse 75 01/14/2021 3:46 PM EDT Temperature - - Respiratory Rate - - Oxygen Saturation 96% 01/14/2021 3:46 PM EDT Inhaled Oxygen Concentration - - Weight 62.1 kg (137 lb) 01/14/2021 12:40 PM EDT Height 157.5 cm (5' 2 ) 01/14/2021 12:40 PM EDT Body Mass Index 25.06 01/14/2021 12:40 PM EDT Plan of Treatment Health Maintenance Due Date Last Done Comments [facility]-Depression Screening 1971 [facility]-Infant/Child/Adol SDOH Screenings 1971 [facility]- SDOH Screenings 1989 [facility]-Adult SDOH Screenings 1989 [facility]-Hepatitis B Vaccines (1 of 3 - 19+ 3-dose series) 1990 [facility]-Pap Smear 1992 [facility]-Cervical Cancer Screening 2001 [facility]-HPV/Cotest 2001 [facility]-DTaP,Tdap,and Td Vaccines (1 - Tdap) 08/19/2011 08/18/2011 CT Colonography 2016 Colonoscopy 2016 FIT-DNA 2016 FIT 2016 FOBT 2016 Sigmoidoscopy 2016 [facility]-Colorectal Cancer Screening 2016 [facility]-Pneumococcal Vaccine: 50+ Years (1 of 1 - PCV) 2021 [facility]-Zoster Vaccines (1 of 2) 2021 [id number] Vaccine (1 - season) 2024 [facility]-Influenza Vaccine (#1) 03/24/202506/15, 07/10/2019, 05/09/2018, Additional history exists HPV Vaccines Aged Out No longer eligi ble based on patient's age to complete this topic [facility]-HIB Vaccines Aged Out No longer e ligible based on patient's age to complete this topic [facility]-Hepatitis A Vaccines Aged Out No longer eligible based on patient's age to complete this topic [facility]-IPV Vaccines Aged Out No longer e ligible based on patient's age to complete this topic [facility]-Rotavirus Vaccines Aged Out No lo nger eligible based on patient's age to complete this topic Insurance [facility] MEDICAID Care Teams Corporate Development Officer Relationship Specialty Start Date End Date Rianna Salazar PA [address] [place] [address] [facility] - General 12/24/20
--- OUTSIDE RECORDS SUMMARY | 2025-01-27 11:39 | XMS_ITS | Data Portability ---
Author Organization [facility] Address [address] [place] [address] Assessment Encounter Date Assessment Date Assessment LastModified by Organization Details LastModified Time 09/16/2024 09/16/2024 Discussed lab results. [email or web address] Not available 09/16/2024 15:11:04 Plan of Treatment Reminders Order Date Submit Date Provider Last Modified By Organization Details Last Modified Time Details Appointments None recorded. Lab Hepatitis C IgG Ab, qual, serum 2024 025 [facility] [address] [place], [address], 5 07:24:11 HIV 1 + 2, meaningful use set 2024 025 [facility] [address] [place], [address], 5 11:36:00 unlisted lab - toxassure flex 19, [id number] 2024 025 [facility]), [address] [place], [address], 5 22:06:14 lipid panel, serum or plasma 2024 025 [facility] [address] [place], [address], 5 15:55:02 CBC w/ auto diff 2024 025 [facility]), [address] [place], [address], 5 15:55:01 CMP, serum or plasma 2024 025 [facility]), [address] [place], [address], 5 15:55:02 HbA1c (hemoglobin A1c), blood 2024 025 [facility], [address] [place], [address], 5 13:04:06 cobalamin and folate panel, serum 2024 025 [facility]), [address] [facility], [place], [address], 5 22:06:16 TSH + free T4, serum 2024 025 [facility]), [address] [facility], [place], [address], 5 15:55:02 vitamin D, 25-hydroxy, total, serum 2024 025 [facility]), [address] [facility], [place], [address], 5 11:39:27 rapid flu (A+B) 2023 024 [facility], [address] [facility], [place], [address], 4 15:10:54 rapid SARS CoV 2 Ag, QL, IA, upper respiratory specimen 2023 024 [facility], [address] [facility], [place], [address], 4 15:10:38 Referral interventio nal cardiology referral [address] [facility], [address], [place], [address], 5 10:39:39 orthopedic surgeon referral 2024 025 [place] Jordan Rick DO, [address], [place], [place], [address], 5 10:10:50 Procedures None recorded. Surgeries None recorded. Imaging electrocard iogram 2024 025 [facility] [address], [place], [address], 5 15:16:49 MAMMO, screening, bilateral 2023 024 [facility] [address] [facility], [place], [address], 4 10:10:32 Medication Orders trazodone 150 mg tablet 2024 025 [facility], [address] [place] [address], [address], 5 17:38:57 losartan 50 mg tablet 2024 025 [facility], [address] [place] [address], [address], 5 17:38:55 omeprazole 40 mg capsule,del ayed release 2024 025 [facility], [address] [place] [address], [address], 5 17:38:54 carbidopa ER 50 mg-levodopa 200 mg tablet,exte nded release 2024 025 [facility], [address] [place] [address], [address], 5 17:48:11 tizanidine 4 mg tablet 2024 025 [facility], [address] [place] [address], [address], 5 17:48:09 trazodone 150 mg tablet 2024 025 [facility], [address] [place] [address], [address], 5 17:58:19 mirabegron ER 50 mg tablet,exte nded release 24 hr 2024 025 [facility], [address] [place] [address], [address], 5 17:48:10 bupropion HCl XL 300 mg 24 hr tablet, extended release 2024 025 [facility], [address] [place] [address], [address], 5 17:48:14 trazodone 50 mg tablet 2024 025 [facility], [address] [place] [address], [address], 5 17:58:18 losartan 50 mg tablet 2024 025 [facility], [address] [place] [address], [address], 5 13:32:38 losartan 25 mg tablet 2024 025 [facility], [address] [place] [address], [address], 5 11:59:49 Zovirax 5 % topical cream 2023 024 [facility], [address] [place] [address], [address], 4 15:12:40 Pristiq 50 mg tablet,exte nded release 2023 024 [facility], [facility] [place], [address], 11:03:33 Patient TargetsNo targets recorded. Patient Instructions Encounter Date Encounter Id Patient Instructions Last Modified By Organization Details Last Modified Time 06/03/2024 [id number] mammogram: about this test [email or web address] Not available 06/03/2024 15:32:26 insomnia: care instructions [email or web address] Not available 06/03/2024 15:07:19 gastroesophageal reflux disease (GERD): care instructions [email or web address] Not available 06/03/2024 15:07:19 high cholesterol : care instructions [email or web address] Not available 06/03/2024 15:07:19 Stress Incontine nce: Care Instructions [email or web address] Not available 06/03/2024 15:07:19 cope's esopha jailyn: care instructions Not available 06/03/2024 15:07:20 learning about m ood disorders Not available 06/03/2024 15:07:19 09/02/2024 [id number] gastroesophageal reflux disease (GERD): care instructions Not available 09/02/2024 11:52:11 high cholesterol : care instructions Not available 09/02/2024 11:52:11 high blood press ure: care instructions Not available 09/02/2024 11:52:11 learning about h igh blood pressure Not available 09/02/2024 11:52:11 09/16/2024 [id number] insomnia: care instructions Not available 09/16/2024 13:26:46 high blood press ure: care instructions Not available 09/16/2024 13:26:46 learning about h igh blood pressure Not available 09/16/2024 13:26:46 10/02/2024 [id number] restless legs syndrome: care instructions Not available 10/02/2024 17:41:56 learning about m ood disorders Not available 10/02/2024 17:41:56 10/29/2024 [id number] insomnia: care instructions [email or web address] Not available 10/29/2024 17:37:29 high blood press ure: care instructions [email or web address] Not available 10/29/2024 17:37:28 learning about h igh blood pressure Not available 10/29/2024 17:37:29 gastroesophageal reflux disease (GERD): care instructions [email or web address] Not available 10/29/2024 17:37:28 Reason for Referral Orthopedic Surgeon Referral for Pain of right shoulder joint Referring Physician: Radha Rene [facility] Medicine, Encounter Date: 09/02/2024 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 Referring Physician: Radha Rene [facility] Medicine, Encounter Date: 09/02/2024 Results Created Date Observation Date Name Description Value Unit Range Abnormal Flag Note LastModifiedBy Organization Detail LastModifiedTime 06/03/20 24 06/03/2024 rapid SARS CoV 2 Ag, QL, IA, upper respi rator y speci men SARS CoV Ag negati ve Not Available [address], [address], 06/03/2024 14:52:50 06/03/20 24 06/03/2024 rapid flu (A+B) Flu A negati ve Not Available [address], [address], 06/03/2024 14:52:39 06/03/20 24 06/03/2024 rapid flu (A+B) Flu B negati ve Not Available [address], [address], 06/03/2024 14:52:39 09/02/19 25 09/05/2024 TOXAS SURE FLEX 19, UR summary report FINAL ===== ===== ===== ===== ===== ===== ===== ===== ===== ===== ===== ===== ===== === Canna binoi ds, MS, Ur RFX ToxAs sure Flex 19, Ur ===== ===== ===== ===== ===== ===== ===== ===== ===== ===== ===== ===== ===== === Test Resul t Flag Units Drug Prese nt Carbo xy-TH C 243 ng/mg creat Carbo xy-TH C is a metab olite of tetra hydro canna binol (THC) . Sourc e of THC is most commo nly herba l marij uana or marij uana- based produ cts, but THC is also prese nt in a sched uled presc ripti on medic ation . Trace amoun ts of THC can be prese nt in hemp and canna bidio l (CBD) produ cts. This test is not inten ded to disti nguis h betwe en delta -9-te trahy droca nnabi nol, the predo minan t form of THC in most herba l or marij uana- based produ cts, and delta -8-te trahy droca nnabi nol. ===== ===== ===== ===== ===== ===== ===== ===== ===== ===== ===== ===== ===== === Test Resul t Flag Units Ref Range Creat inine 67 mg/dL >=20 ===== ===== ===== ===== ===== ===== ===== ===== ===== ===== ===== ===== ===== === Decla red Medic ation s: Medic ation list was not provi ded. ===== ===== ===== ===== ===== ===== ===== ===== ===== ===== ===== ===== ===== === For clini marlena consu ltati on, pleas e call [phone]. ===== ===== ===== ===== ===== ===== ===== ===== ===== ===== ===== ===== ===== === Not Available [facility] ([facility]) [address] [place], [address], 09/05/2024 22:06:14 09/02/19 25 09/05/2024 TOXAS SURE FLEX 19, UR pdf . Not Available [facility] ([facility]) [address] [place], [address], 09/05/2024 22:06:14 09/02/19 25 09/05/2024 TOXAS SURE FLEX 19, UR creatinine 67 mg/dL REFER ENCE RANGE : Ref Range >=20 Not Available [facility] ([facility]) [address] [place], [address], 09/05/2024 22:06:14 09/02/19 25 09/05/2024 TOXAS SURE FLEX 19, UR amphetamines ia Negati ve NG/mL cutoff :300 Not Available [facility] ([facility]) [address] [place], [address], 09/05/2024 22:06:14 09/02/19 25 09/05/2024 TOXAS SURE FLEX 19, UR benzodiazepi marium Negati ve Not Available [facility] ([facility]) [address] [place], [address], 09/05/2024 22:06:14 09/02/19 25 09/05/2024 TOXAS SURE FLEX 19, UR diazepam Not Detect ed NG/mg _crea t Not Available [facility] ([facility]) [address] [facility], [place], [address], 09/05/2024 22:06:14 09/02/19 25 09/05/2024 TOXAS SURE FLEX 19, UR desmethyldia zepam Not Detect ed NG/mg _crea t Not Available [facility] ([facility]) [address] [facility], [place], [address], 09/05/2024 22:06:14 09/02/19 25 09/05/2024 TOXAS SURE FLEX 19, UR oxazepam Not Detect ed NG/mg _crea t Not Available [facility] ([facility]) [address] [facility], [place], [address], 09/05/2024 22:06:14 09/02/19 25 09/05/2024 TOXAS SURE FLEX 19, UR temazepam Not Detect ed NG/mg _crea t Expec parag metab olism of benzo diaze pine class drugs : Paren t Drug Detec parag Metab olite s ----- ----- - ----- ----- ----- ----- Diaze live: Desme thyld iazep am, Temaz epam, Oxaze live Chlor diaze poxid e: Desme thyld iazep am, Oxaze live Clora zepat e: Desme thyld iazep am, Oxaze live Halaz epam: Desme thyld iazep am, Oxaze live Temaz epam: Oxaze live Oxaze live: None Not Available [facility] ([facility]) [address] [facility], [place], [address], 09/05/2024 22:06:14 09/02/19 25 09/05/2024 TOXAS SURE FLEX 19, UR alprazolam Not Detect ed NG/mg _crea t Not Available [facility] ([facility]) [address] [facility], [place], [address], 09/05/2024 22:06:14 09/02/19 25 09/05/2024 TOXAS SURE FLEX 19, UR alpha-hydrox yalprazolam Not Detect ed NG/mg _crea t Not Available [facility] ([facility]) [address] [place], [address], 09/05/2024 22:06:14 09/02/19 25 09/05/2024 TOXAS SURE FLEX 19, UR desalkylflur azepam Not Detect ed NG/mg _crea t Not Available [facility] ([facility]) [address] [place], [address], 09/05/2024 22:06:14 09/02/19 25 09/05/2024 TOXAS SURE FLEX 19, UR lorazepam Not Detect ed NG/mg _crea t Not Available [facility] ([facility]) [address] [place], [address], 09/05/2024 22:06:14 09/02/19 25 09/05/2024 TOXAS SURE FLEX 19, UR alpha-hydrox ytriazolam Not Detect ed NG/mg _crea t Not Available [facility] ([facility]) [address] [place], [address], 09/05/2024 22:06:14 09/02/19 25 09/05/2024 TOXAS SURE FLEX 19, UR clonazepam Not Detect ed NG/mg _crea t Not Available [facility] ([facility]) [address] [place], [address], 09/05/2024 22:06:14 09/02/19 25 09/05/2024 TOXAS SURE FLEX 19, UR 7-aminoclona zepam Not Detect ed NG/mg _crea t Not Available [facility] ([facility]) [address] [place], [address], 09/05/2024 22:06:14 09/02/19 25 09/05/2024 TOXAS SURE FLEX 19, UR midazolam Not Detect ed NG/mg _crea t Not Available [facility] ([facility]) [address] [place], [address], 09/05/2024 22:06:14 09/02/19 25 09/05/2024 TOXAS SURE FLEX 19, UR alpha-hydrox ymidazolam Not Detect ed NG/mg _crea t Not Available [facility] ([facility]) [address] [place], [address], 09/05/2024 22:06:14 09/02/19 25 09/05/2024 TOXAS SURE FLEX 19, UR flunitrazepa m Not Detect ed NG/mg _crea t Not Available [facility] ([facility]) [address] [place], [address], 09/05/2024 22:06:14 09/02/19 25 09/05/2024 TOXAS SURE FLEX 19, UR desmethylflu nitrazepam Not Detect ed NG/mg _crea t Not Available [facility] ([facility]) [address] [place], [address], 09/05/2024 22:06:14 09/02/19 25 09/05/2024 TOXAS SURE FLEX 19, UR cocaine metabolite ia Negati ve NG/mL cutoff :150 Not Available [facility] ([facility]) [address] [place], [address], 09/05/2024 22:06:14 09/02/19 25 09/05/2024 TOXAS SURE FLEX 19, UR ethanol biomarkers ia Negati ve NG/mL cutoff :500 Not Available [facility] ([facility]) [address] [place] [address], [address], 09/05/2024 22:06:14 09/02/19 25 09/05/2024 TOXAS SURE FLEX 19, UR cannabinoids ia COMMEN T NG/mL cutoff :20 Furth er testi ng indic ated Not Available [facility] ([facility]) [address] [place], [address], 09/05/2024 22:06:14 09/02/19 25 09/05/2024 TOXAS SURE FLEX 19, UR 6-acetylmorp jay ia Negati ve NG/mL cutoff :10 Not Available [facility] ([facility]) [address] [place], [address], 09/05/2024 22:06:14 09/02/19 25 09/05/2024 TOXAS SURE FLEX 19, UR opiate class ia Negati ve NG/mL cutoff :100 Not Available [facility] ([facility]) [address] [place], [address], 09/05/2024 22:06:14 09/02/19 25 09/05/2024 TOXAS SURE FLEX 19, UR oxycodone class ia Negati ve NG/mL cutoff :100 Not Available [facility] ([facility]) [address] [place], [address], 09/05/2024 22:06:14 09/02/19 25 09/05/2024 TOXAS SURE FLEX 19, UR methadone ia Negati ve NG/mL cutoff :100 Not Available [facility] ([facility]) [address] [place], [address], 09/05/2024 22:06:14 09/02/19 25 09/05/2024 TOXAS SURE FLEX 19, UR methadone mtb ia Negati ve NG/mL cutoff :100 Not Available [facility] ([facility]) [address] [place], [address], 09/05/2024 22:06:14 09/02/19 25 09/05/2024 TOXAS SURE FLEX 19, UR buprenorphin e ia Negati ve NG/mL cutoff :5.0 Not Available [facility] ([facility]) [address] [place], [address], 09/05/2024 22:06:14 09/02/19 25 09/05/2024 TOXAS SURE FLEX 19, UR fentanyl ia Negati ve NG/mL cutoff :2.0 Not Available [facility] ([facility]) [address] [facility], [place], [address], 09/05/2024 22:06:14 09/02/19 25 09/05/2024 TOXAS SURE FLEX 19, UR tapentadol ia Negati ve NG/mL cutoff :200 Not Available [facility] ([facility]) [address] [place], [address], 09/05/2024 22:06:14 09/02/19 25 09/05/2024 TOXAS SURE FLEX 19, UR propoxyphene ia Negati ve NG/mL cutoff :300 Not Available [facility] ([facility]) [address] [place], [address], 09/05/2024 22:06:14 09/02/19 25 09/05/2024 TOXAS SURE FLEX 19, UR tramadol ia Negati ve NG/mL cutoff :200 Not Available [facility] ([facility]) [address] [place], [address], 09/05/2024 22:06:14 09/02/19 25 09/05/2024 TOXAS SURE FLEX 19, UR methylphenid ate ia Negati ve NG/mL cutoff :100 Not Available [facility] ([facility]) [address] [place], [address], 09/05/2024 22:06:14 09/02/19 25 09/05/2024 TOXAS SURE FLEX 19, UR barbiturates ia Negati ve NG/mL cutoff :200 Not Available [facility] ([facility]) [address] [place] [address], [address], 09/05/2024 22:06:14 09/02/19 25 09/05/2024 TOXAS SURE FLEX 19, UR phencyclidin e ia Negati ve NG/mL cutoff :25 Not Available [facility] ([facility]) [address] [place], [address], 09/05/2024 22:06:14 09/02/19 25 09/05/2024 TOXAS SURE FLEX 19, UR gabapentin ia Negati ve ug/mL cutoff :1.0 Not Available [facility] ([facility]) [address] [place], [address], 09/05/2024 22:06:14 09/02/19 25 09/05/2024 TOXAS SURE FLEX 19, UR anticonvulsa nts Negati ve Not Available [facility] ([facility]) [address] [place], [address], 09/05/2024 22:06:14 09/02/19 25 09/05/2024 TOXAS SURE FLEX 19, UR pregabalin Not Detect ed Not Available [facility] ([facility]) [address] [place], [address], 09/05/2024 22:06:14 09/02/19 25 09/05/2024 TOXAS SURE FLEX 19, UR carisoprodol ia Negati ve NG/mL cutoff :100 Not Available [facility] ([facility]) [address] [place], [address], 09/05/2024 22:06:14 09/02/19 25 09/03/2024 TSH+F REE T4 TSH COMMEN T uIU/m L Test not perfo rmed. No speci men recei jolynn. TESTI NG NOT ON ORIGI NAL REQ. UPLOA D ERROR . Not Available [facility] ([facility]) [address] [place] [address], [address], 09/05/2024 22:06:14 09/02/19 25 09/03/2024 TSH+F REE T4 T4,free(dire ct) TNP Test not perfo rmed Not Available [facility] ([facility]) [address] [facility], [place], [address], 09/05/2024 22:06:14 09/02/19 25 09/03/2024 CBC WITH DIFFE RENTI AL/PL ATELE T WBC COMMEN T x10e3 /uL Test not perfo rmed. No speci men recei jolynn. TESTI NG NOT ON ORIGI NAL REQ. UPLOA D ERROR . Not Available [facility] ([facility]) [address] [facility], [place], [address], 09/05/2024 22:06:15 09/02/19 25 09/03/2024 CBC WITH DIFFE RENTI AL/PL ATELE T RBC TNP Test not perfo rmed Not Available [facility] ([facility]) [address] [place], [address], 09/05/2024 22:06:15 09/02/19 25 09/03/2024 CBC WITH DIFFE RENTI AL/PL ATELE T hemoglobin TNP Test not perfo rmed Not Available [facility] ([facility]) [address] [place], [address], 09/05/2024 22:06:15 09/02/19 25 09/03/2024 CBC WITH DIFFE RENTI AL/PL ATELE T hematocrit TNP Test not perfo rmed Not Available [facility] ([facility]) [address] [place], [address], 09/05/2024 22:06:15 09/02/19 25 09/03/2024 CBC WITH DIFFE RENTI AL/PL ATELE T MCV BUDGET REPORT CLERK Not Available [facility] ([facility]) [address] [place], [address], 09/05/2024 22:06:15 09/02/19 25 09/03/2024 CBC WITH DIFFE RENTI AL/PL ATELE T MCH BUDGET REPORT CLERK Not Available [facility] ([facility]) [address] [facility], [place], [address], 09/05/2024 22:06:15 09/02/19 25 09/03/2024 CBC WITH DIFFE RENTI AL/PL ATELE T MCHC BUDGET REPORT CLERK Not Available [facility] ([facility]) [address] [facility], [place], [address], 09/05/2024 22:06:15 09/02/19 25 09/03/2024 CBC WITH DIFFE RENTI AL/PL ATELE T RDW BUDGET REPORT CLERK Not Available [facility] ([facility]) [address] [facility], [place], [address], 09/05/2024 22:06:15 09/02/19 25 09/03/2024 CBC WITH DIFFE RENTI AL/PL ATELE T platelets TNP Test not perfo rmed Not Available [facility] ([facility]) [address] [facility], [place], [address], 09/05/2024 22:06:15 09/02/19 25 09/03/2024 CBC WITH DIFFE RENTI AL/PL ATELE T neutrophils TNP Test not perfo rmed Not Available [facility] ([facility]) [address] [facility], [place], [address], 09/05/2024 22:06:15 09/02/19 25 09/03/2024 CBC WITH DIFFE RENTI AL/PL ATELE T lymphs TNP Test not perfo rmed Not Available [facility] ([facility]) [address] [facility], [place], [address], 09/05/2024 22:06:15 09/02/19 25 09/03/2024 CBC WITH DIFFE RENTI AL/PL ATELE T monocytes TNP Test not perfo rmed Not Available [facility] ([facility]) [address] [facility], [place], [address], 09/05/2024 22:06:15 09/02/19 25 09/03/2024 CBC WITH DIFFE RENTI AL/PL ATELE T eos TNP Test not perfo rmed Not Available [facility] ([facility]) [address] [place], [address], 09/05/2024 22:06:15 09/02/19 25 09/03/2024 CBC WITH DIFFE RENTI AL/PL ATELE T basos BUDGET REPORT CLERK Not Available [facility] ([facility]) [address] [place], [address], 09/05/2024 22:06:15 09/02/19 25 09/03/2024 CBC WITH DIFFE RENTI AL/PL ATELE T immature cells BUDGET REPORT CLERK Not Available [facility] ([facility]) [address] [place], [address], 09/05/2024 22:06:15 09/02/19 25 09/03/2024 CBC WITH DIFFE RENTI AL/PL ATELE T neutrophils (absolute) BUDGET REPORT CLERK Not Available [facility] ([facility]) [address] [place], [address], 09/05/2024 22:06:15 09/02/19 25 09/03/2024 CBC WITH DIFFE RENTI AL/PL ATELE T lymphs (absolute) TNP Test not perfo rmed Not Available [facility] ([facility]) [address] [place], [address], 09/05/2024 22:06:15 09/02/19 25 09/03/2024 CBC WITH DIFFE RENTI AL/PL ATELE T monocytes(ab solute) BUDGET REPORT CLERK Not Available [facility] ([facility]) [address] [place], [address], 09/05/2024 22:06:15 09/02/19 25 09/03/2024 CBC WITH DIFFE RENTI AL/PL ATELE T eos (absolute) TNP Test not perfo rmed Not Available [facility] ([facility]) [address] [facility], [place], [address], 09/05/2024 22:06:15 09/02/19 25 09/03/2024 CBC WITH DIFFE RENTI AL/PL ATELE T baso (absolute) TNP Test not perfo rmed Not Available [facility] ([facility]) [address] [facility], [place], [address], 09/05/2024 22:06:15 09/02/19 25 09/03/2024 CBC WITH DIFFE RENTI AL/PL ATELE T immature granulocytes BUDGET REPORT CLERK Not Available [facility]) [address] [facility], [place], [address], 09/05/2024 22:06:15 09/02/19 25 09/03/2024 CBC WITH DIFFE RENTI AL/PL ATELE T immature grans (abs) BUDGET REPORT CLERK Not Available [facility]) [address] [facility], [place], [address], 09/05/2024 22:06:15 09/02/19 25 09/03/2024 CBC WITH DIFFE RENTI AL/PL ATELE T NRBC BUDGET REPORT CLERK Not Available [facility] ([facility]) [address] [facility], [place], [address], 09/05/2024 22:06:15 09/02/19 25 09/03/2024 CBC WITH DIFFE RENTI AL/PL ATELE T hematology comments: BUDGET REPORT CLERK Not Available [facility] ([facility]) [address] [facility], [place], [address], 09/05/2024 22:06:15 09/02/19 25 09/03/2024 COMP. METAB OLIC PANEL (14) glucose COMMEN T mg/dL Test not perfo rmed. No speci men recei jolynn. TESTI NG NOT ON ORIGI NAL REQ. UPLOA D ERROR . Not Available [facility] ([facility]) [address] [facility], [place], [address], 09/05/2024 22:06:15 09/02/19 25 09/03/2024 COMP. METAB OLIC PANEL (14) BUN TNP Test not perfo rmed Not Available [facility] ([facility]) [address] [facility], [place], [address], 09/05/2024 22:06:15 09/02/19 25 09/03/2024 COMP. METAB OLIC PANEL (14) creatinine TNP Test not perfo rmed Not Available [facility] ([facility]) [address] [facility], [place], [address], 09/05/2024 22:06:15 09/02/19 25 09/03/2024 COMP. METAB OLIC PANEL (14) eGFR BUDGET REPORT CLERK Not Available [facility] ([facility]) [address] [facility], [place], [address], 09/05/2024 22:06:15 09/02/19 25 09/03/2024 COMP. METAB OLIC PANEL (14) BUN/creatini ne ratio BUDGET REPORT CLERK Not Available [facility] ([facility]) [address] [facility], [place], [address], 09/05/2024 22:06:15 09/02/19 25 09/03/2024 COMP. METAB OLIC PANEL (14) sodium TNP Test not perfo rmed Not Available [facility] ([facility]) [address] [facility], [place], [address], 09/05/2024 22:06:15 09/02/19 25 09/03/2024 COMP. METAB OLIC PANEL (14) potassium TNP Test not perfo rmed Not Available [facility] ([facility]) [address] [facility], [place], [address], 09/05/2024 22:06:15 09/02/19 25 09/03/2024 COMP. METAB OLIC PANEL (14) chloride TNP Test not perfo rmed Not Available [facility] ([facility]) [address], [place], [address], 09/05/2024 22:06:15 09/02/19 25 09/03/2024 COMP. METAB OLIC PANEL (14) carbon dioxide, total TNP Test not perfo rmed Not Available [facility] ([facility]) [address], [place], [address], 09/05/2024 22:06:15 09/02/19 25 09/03/2024 COMP. METAB OLIC PANEL (14) calcium TNP Test not perfo rmed Not Available [facility] ([facility]) [address] [facility], [place], [address], 09/05/2024 22:06:15 09/02/19 25 09/03/2024 COMP. METAB OLIC PANEL (14) protein, total TNP Test not perfo rmed Not Available [facility] ([facility]) [address], [place], [address], 09/05/2024 22:06:15 09/02/19 25 09/03/2024 COMP. METAB OLIC PANEL (14) albumin TNP Test not perfo rmed Not Available [facility] ([facility]) [address] [facility], [place], [address], 09/05/2024 22:06:15 09/02/19 25 09/03/2024 COMP. METAB OLIC PANEL (14) globulin, total BUDGET REPORT CLERK Not Available [facility] ([facility]) [address] [facility], [place], [address], 09/05/2024 22:06:15 09/02/19 25 09/03/2024 COMP. METAB OLIC PANEL (14) A/G ratio BUDGET REPORT CLERK Not Available [facility] ([facility]) [address], [place], [address], 09/05/2024 22:06:15 09/02/19 25 09/03/2024 COMP. METAB OLIC PANEL (14) bilirubin, total TNP Test not perfo rmed Not Available [facility] ([facility]) [address] [place], [address], 09/05/2024 22:06:15 09/02/19 25 09/03/2024 COMP. METAB OLIC PANEL (14) alkaline phosphatase TNP Test not perfo rmed Not Available [facility] ([facility]) [address] [place], [address], 09/05/2024 22:06:15 09/02/19 25 09/03/2024 COMP. METAB OLIC PANEL (14) AST (SGOT) TNP Test not perfo rmed Not Available [facility] ([facility]) [address] [place], [address], 09/05/2024 22:06:15 09/02/19 25 09/03/2024 COMP. METAB OLIC PANEL (14) ALT (SGPT) TNP Test not perfo rmed Not Available [facility] ([facility]) [address] [place], [address], 09/05/2024 22:06:15 09/02/19 25 09/03/2024 LIPID PANEL WITH LDL/H DL RATIO cholesterol, total COMMEN T mg/dL Test not perfo rmed. No speci men recei jolynn. TESTI NG NOT ON ORIGI NAL REQ. UPLOA D ERROR . Not Available [facility] ([facility]) [address] [place], [address], 09/05/2024 22:06:15 09/02/19 25 09/03/2024 LIPID PANEL WITH LDL/H DL RATIO triglyceride s TNP Test not perfo rmed Not Available [facility] ([facility]) [address] [place], [address], 09/05/2024 22:06:15 09/02/19 25 09/03/2024 LIPID PANEL WITH LDL/H DL RATIO HDL cholesterol TNP Test not perfo rmed Not Available [facility] ([facility]) [address] [facility], [place], [address], 09/05/2024 22:06:15 09/02/19 25 09/03/2024 LIPID PANEL WITH LDL/H DL RATIO VLDL cholesterol marlena COMMEN T mg/dL Unabl e to calcu late resul t since non-n umeri c resul t obtai aj for compo nent test. Not Available [facility] ([facility]) [address] [facility], [place], [address], 09/05/2024 22:06:15 09/02/19 25 09/03/2024 LIPID PANEL WITH LDL/H DL RATIO LDL chol calc (rust) BUDGET REPORT CLERK Not Available [facility] ([facility]) [address] [facility], [place], [address], 09/05/2024 22:06:15 09/02/19 25 09/03/2024 LIPID PANEL WITH LDL/H DL RATIO LDL calc comment: BUDGET REPORT CLERK Not Available [facility] ([facility]) [address] [facility], [place], [address], 09/05/2024 22:06:15 09/02/19 25 09/03/2024 LIPID PANEL WITH LDL/H DL RATIO LDL/HDL ratio BUDGET REPORT CLERK Not Available [facility] ([facility]) [address] [place], [address], 09/05/2024 22:06:15 09/02/19 25 09/03/2024 VITAM IN B12 AND FOLAT E vitamin B12 COMMEN T pg/mL Test not perfo rmed. No speci men recei jolynn. TESTI NG NOT ON ORIGI NAL REQ. UPLOA D ERROR . Not Available [facility] ([facility]) [address] [place], [address], 09/05/2024 22:06:16 09/02/19 25 09/03/2024 VITAM IN B12 AND FOLAT E folate (folic acid), serum TNP Test not perfo rmed Not Available [facility] ([facility]) [address] [facility], [place], [address], 09/05/2024 22:06:16 09/02/19 25 09/03/2024 HCV ANTIB PAULA RFX TO QUANT PCR HCV Ab COMMEN T Test not perfo rmed. No speci men recei jolynn. TESTI NG NOT ON ORIGI NAL REQ. UPLOA D ERROR . Not Available [facility] ([facility]) [address] [place], [address], 09/05/2024 22:06:16 09/02/19 25 09/05/2024 JADE CHOU DS, MS, UR RFX cannabinoids +POSIT JOCE+ Not Available [facility] ([facility]) [address] [place], [address], 09/05/2024 22:06:17 09/02/19 25 09/05/2024 PHILLJuan Daniel GONZALESAJAY DS, MS, UR RFX carboxy-THC 243 NG/mg _crea t This test is not inten ded to disti nguis h betwe en the metab olite s of delta -9-te trahy droca nnabi nol, the predo minan t form of THC in most herba l or marij uana- based produ cts, and delta -8-te trahy droca nnabi nol, a psych oacti ve compo und gener ally synth esize d from other canna binoi ds. Not Available [facility] ([facility]) [address] [place], [address], 09/05/2024 22:06:17 09/02/19 25 09/03/2024 VITAM IN D, 25-HY DROXY vitamin D, 25-hydroxy COMMEN T NG/mL Test not perfo rmed. No speci men recei jolynn. TESTI NG NOT ON ORIGI NAL REQ. UPLOA D ERROR . Vitam in D defic iency has been defin ed by the Insti tute of Medic ine and an Endoc rine Socie ty pract ice guide line as a level of serum 25-OH vitam in D less than 20 ng/mL (1,2) . The Endoc rine Socie ty went on to furth er defin e vitam in D insuf ficie ncy as a level betwe en 21 and 29 ng/mL (2). 1. IOM (Inst itute of Medic ine). 2010. Dieta ry refer ence intak es for calci um and D. Priya gallegos [place]: The [facility] . 2. Linda booker MF, Scooby hweeler [place], [place] off-F errar i BARLOW, et al. Evalu ation , treat ment, and preve ntion of vitam in D defic iency : an Endoc rine Socie ty clini marlena pract ice guide line. JCEM. 2010; 96(7) :1911 -30. Not Available [facility] ([facility]) [address] [facility], [place], [address], 09/05/2024 22:06:17 09/02/19 25 09/03/2024 HIV AB/P2 4 AG WITH REFLE X HIV Ab/P24 Ag screen COMMEN T Test not perfo rmed. No speci men recei jolynn. TESTI NG NOT ON ORIGI NAL REQ. UPLOA D ERROR . Not Available [facility] ([facility]) [address] [facility], [place], [address], 09/05/2024 22:06:17 09/02/19 25 09/03/2024 SPECI MEN STATU S REPOR T specimen status report COMMEN T Test not perfo rmed. No speci men recei jolynn. TEST: 28104 6 TSH+F ree T4 96650 9 CBC With Diffe renti al/Pl atele t 85528 0 Comp. Metab olic Panel (14) 80351 0 Lipid Panel With LDL/H DL Ratio 76645 0 Vitam in B12 and Folat e 96929 0 HCV Antib paula RFX to Quant PCR 72513 0 Vitam in D, 25-Hy droxy 99660 5 HIV Ab/p2 4 Ag with Refle x TESTI NG NOT ON ORIGI NAL REQ. UPLOA D ERROR . Not Available [facility] ([facility]) [address], [place], [address], 09/05/2024 22:06:18 09/02/19 25 09/02/2024 HbA1c (hemo globi n A1c), blood HbA1c 5.5 Not Available [facility] [address] [facility] [place], [place], [address], 09/02/2024 11:52:36 07/22/20 24 07/15/2024 MAMMO , scree georgina, bilat eral No observ ation record ed. [facility] (Scheduling) [address], [place], [address], 07/22/2024 10:29:59 09/02/19 25 09/02/2024 elect bo ferreira am No observ ation record ed. [email or web address] [facility] (Scheduling) [address], [place], [address], 09/02/2024 15:16:53 Result Notes None recorded. Problems Name Problem SNOMED Code Status Onset Date Resolution Date Notes Provider Name and Address Organization Details Recorded Time Herpes simplex 74085774 Active 2023 SHON Sinclair [address] [place] [address], 03168-690 8, [facility] [employer] 10:56:48 Deficiency of vitamin D2 783539639 Active 2023 SHON Sinclair [address] [place] [address], 25368-201 8, [facility] [employer] 10:56:41 Depressive disorder 85367811 Active 2023 SHON Sinclair [address] [place] [address], 11764-944 8, [employer] 4 10:56:43 Allergic rhinitis 20114736 Active 2023 SHON Sinclair [address] [place] [address], 95746-901 8, [employer] 4 10:56:32 Restless legs 36568484 Active 2023 SHON Sinclair [address] [place] [address], 04700-221 8, [employer] 4 10:56:57 Urinary incontinenc e 472999184 Active 2023 SHON Sinclair [address] [place] [address], 36252-929 8, [employer] 4 10:56:54 Hyperlipide nahum 71003569 Active 2023 SHON Sinclair [address] [place] [address], 14621-539 8, [employer] 4 10:57:00 Spasm 37610427 Active 2023 SHON Sinclair [address] [place] [address], 53084-261 8, [employer] 4 15:06:09 Gastroesoph ageal reflux disease 806587216 Active 2023 SHON Sinclair [address] [place] [address], 98115-712 8, [employer] 4 10:56:46 Insomnia 172014892 Active 2023 SHON Sinclair [address] [place] [address], 37827-929 8, [employer] 4 10:56:56 Vitamin D deficiency 11012800 Active 2023 SHON Sinclair [address] [place] [address], 74957-129 8, [employer] 4 10:56:52 Spasm of back muscles 708856342 Active 2023 SHON Sinclair [address] [place] [address], 26966-746 8, [employer] 4 10:57:03 Essential hypertensio n 62506676 Active 2024 Radha Rene NP [address] [place] [address], 95721-067 8, [employer] 5 11:52:00 Fatigue 47672111 Active 2024 Radha Rene NP [address] [place] [address], 58531-251 8, [employer] 5 11:52:45 Pain of right shoulder joint 1153125612752 9100 Active 2024 Radha Rene NP [address] [place] [address], 64797-523 8, [employer] 5 11:56:35 Pain of right wrist 8710795911525 00 Active 2024 Radha Rene NP [address] [place] [address], 09616-967 8, [employer] 5 12:27:42 Overactive urinary bladder 350725648 Active 2024 Radha Rene NP [address] [place] [address], 06361-976 8, [employer] 5 17:34:47 Abdominal pain 70053041 Active 2024 Radha Rene NP [address] [place] [address], 16987-068 8, [employer] 5 17:37:17 Problem Notes None recorded. Procedures Surgical History Date Name Laterality Status Provider Name and Address Organization Details Recorded Time 07/15/20 24 Most Recent Mammogram completed [employer] 10/29/2024 16:29:55 09/21/18 97 Hysterectomy completed Pérez Susan [employer] 09/05/2024 15:37:25 Angioplasty completed [employer] [facility] [employer] 06/03/2024 14:42:28 Breast Biopsy completed [employer] Roberto Carlos [employer] 06/03/2024 14:42:28 Colposcopy completed [employer] [facility] [employer] 06/03/2024 14:42:28 Joint Replacement completed [employer] Roberto Carlos [employer] 06/03/2024 14:42:28 Orthopedic Surgery completed [employer] 06/03/2024 14:42:29 Gallbladder Surgery completed [employer] 06/03/2024 14:42:29 Endometrial Biopsy completed [employer] Roberto Carlos [employer] 06/03/2024 14:42:29 Total Hysterectomy completed [employer] 06/03/2024 14:42:29 Imaging Results None recorded. Procedure Notes None recorded. Medical Equipment None Reported. Allergies Allergen ID Allergen Name Allergen Category Reaction Reaction Severity Criticality Documentation Date Start Date Code Code System Note Provider Name and Address Organization Details Recorded Time 71074 codeine medicatio n Not available Not available Not available 06/03/2024 2670 RxNorm [employer] Roberto Carlos [employer] 14:43:16 Medications Name Sig Start Date Stop Date Status Note LastModified by Organization Details LastModified Time losartan 50 mg tablet Take 1 tablet every day by oral route for 90 days. 2024 active Not Available Not Available Not Avai lable trazodone 50 mg tablet Take 1 tablet every day by oral route at bedtime for 30 days. 10/02 completed Not Available Not Available Not Available oxybutynin chloride ER 10 mg tablet,exte nded release 24 hr TAKE 1 TABLET BY MOUTH DAILY 05/31 completed Not Available Not Available Not Available tizanidine 4 mg tablet Take 1 tablet twice a day by oral route as needed for 10 days, for muscle spasm. 2024 active Not Available Not Available Not Avai lable carbidopa ER 50 mg-levodopa 200 mg tablet,exte nded release Take 1 tablet twice a day by oral route at bedtime for 30 days. 2024 active Not Available Not Available Not Avai lable hydrocodone 10 mg-acetamin ophen 325 mg tablet TAKE 1 TABLET BY MOUTH THREE TIMES DAILY FOR PAIN 05/31 completed Not Available Not Available Not Available omeprazole 40 mg capsule,del ayed release Take 1 capsule every day by oral route as directed for 90 days, for heartburn . 2024 active Not Available Not Available Not Avai lable aspirin 81 mg tablet,samantha yed release active Not Available Not Available Not Available spironolact one 25 mg tablet 06/03 completed Not Available Not Available Not Available terbinafine HCl 250 mg tablet active Not Available Not Available Not Available magnesium oxide 400 mg (241.3 mg magnesium) tablet 05/31 completed Not Available Not Available Not Available trazodone 100 mg tablet 05/31 completed Not Available Not Available Not Available ropinirole 2 mg tablet Take 1 tablet every day by oral route at bedtime for 90 days, for restless legs. 2024 active Not Available Not Available Not Avai lable trazodone 150 mg tablet Take 1 tablet every day by oral route at bedtime for 90 days. 2024 active Not Available Not Available Not Avai lable lisinopril 10 mg tablet 05/31 completed Not Available Not Available Not Available losartan 25 mg tablet TAKE 1 TABLET EVERY DAY BY ORAL ROUTE FOR 30 DAYS. 2024 active Not Available Not Available Not Avai lable estradiol 0.01% (0.1 mg/gram) vaginal cream active Not Available Not Available Not Available zolpidem 10 mg tablet Take 1 tablet every day by oral route as needed for 30 days, for sleep. active Not Available Not Available No t Available Vitamin D2 1,250 mcg (50,000 unit) capsule Take 1 capsule every week by oral route as directed for 90 days, for Vitamin D deficienc y. active Not Available Not Available No t Available fluticasone propionate 50 mcg/actuati on nasal spray,suspe nsion active Not Available Not Available Not Available acyclovir 5 % topical cream APPLY TO THE AFFECTED AREA(S) BY TOPICAL ROUTE 5 TIMES PER DAY active Not Available Not Available No t Available rosuvastati n 5 mg tablet active Not Available Not Available Not Available bupropion HCl XL 300 mg 24 hr tablet, extended release TAKE 1 TABLET EVERY DAY BY MOUTH, FOR DEPRESSIO N. 2024 active Not Available Not Available Not Avai labtavo bupropion HCl XL 150 mg 24 hr tablet, extended release 06/03 completed Not Available Not Available Not Available folic acid 400 mcg per day active Not Available Not Available No t Available FeroSul 325 mg (65 mg iron) tablet 06/03 completed Not Available Not Available Not Available levocetiriz ine 5 mg tablet 06/03 completed Not Available Not Available Not Available desvenlafax ine succinate ER 50 mg tablet,exte nded release 24 hr Take 1 tablet every day by oral route as directed for 30 days, for anxiety/d epression . 06/21 completed Not Available Not Available Not Available diclofenac 1 % topical gel active Not Available Not Available Not Available cholecalcif naren (vitamin D3) 50 mcg (2,000 unit) capsule Take 1 capsule every day by oral route as directed for 90 days, for Vitamin D deficienc y. active Not Available Not Available No t Available mirabegron ER 50 mg tablet,exte nded release 24 hr TAKE 1 TABLET BY MOUTH EVERY DAY 2024 active Not Available Not Available Not Aveliza moreno [facility] COVID-19 Antigen Rapid Home Test kit 06/03 completed Not Available Not Available Not Available Vitals Date Recorded Body height Body mass index (BMI) Body weight Body temperature Heart rate Oxygen saturation Oxygen saturation in Arterial blood by Pulse oximetry Systolic And Diastolic Systolic And Diastolic Systolic And Diastolic Systolic And Diastolic Systolic And Diastolic Provider Name and Address Organization Details Last Updated DateTime 160.02 cm 26.3 kg/m2 78390.7 7 g 97.8 [degF] 92 /min 96 % 96 % 148/106 mm[Hg] 151/105 mm[Hg] 156/108 mm[Hg] 159/100 mm[Hg] 147/91 mm[Hg] [employer] 12:39:30 Date Recorded Systolic And Diastolic Provider Name and Address Organization Details Last Updated DateTime 09/16/2024 142/98 mm[Hg] Barbara [facility] [employer] 09/16/2024 12:24:33 Date Recorded Body height Body mass index (BMI) Body weight Body temperature Heart rate Oxygen saturation Oxygen saturation in Arterial blood by Pulse oximetry Systolic And Diastolic Systolic And Diastolic Provider Name and Address Organization Details Last Updated DateTime 5 160.02 cm 25.9 kg/m2 16229.4 9 g 98.5 [degF] 88 /min 97 % 97 % 144/100 mm[Hg] 135/95 mm[Hg] [employer] 5 12:11:57 Date Recorded Body height Body mass index (BMI) Body weight Body temperature Heart rate Oxygen saturation Oxygen saturation in Arterial blood by Pulse oximetry Systolic And Diastolic Provider Name and Address Organization Details Last Updated DateTime 5 160.02 cm 25.4 kg/m2 75148.8 1 g 98.4 [degF] 96 /min 99 % 99 % 109/76 mm[Hg] [employer] 5 16:52:16 Date Recorded Body height Body mass index (BMI) Body weight Body temperature Heart rate Oxygen saturation Oxygen saturation in Arterial blood by Pulse oximetry Systolic And Diastolic Provider Name and Address Organization Details Last Updated DateTime 5 160.02 cm 25.7 kg/m2 40666.5 9 g 98.6 [degF] 101 /min 95 % 95 % 132/85 mm[Hg] Marry Khan [employer] 5 17:05:06 Date Recorded Body weight Body mass index (BMI) Body height Oxygen saturation Oxygen saturation in Arterial blood by Pulse oximetry Heart rate Body temperature Systolic And Diastolic Systolic And Diastolic Systolic And Diastolic Provider Name and Address Organization Details Last Updated DateTime 4 99796.8 9 g 25.7 kg/m2 160.02 cm 96 % 96 % 90 /min 98.4 [degF] 137/94 mm[Hg] 132/92 mm[Hg] 132/90 mm[Hg] Barbara [employer]. 4 14:54:32 Social History Question Answer Notes LastModified by Organizat ion Details LastModified Time Tobacco Smoking Status Former Smoker Barbara [email or web address]. 06/03/2024 14:42:28 Do You Have An Advance Directive? No Information not available 06/03/2024 Is Your Home Air Conditioned? Yes Information not available 06/03/2024 If You Are , What Was Your Level Of Alcohol Consumption Prior To ? None Information not available 06/03/2024 How Many Years Have You Consumed Alcohol? 30 Information not available 06/03/2024 Do You Wear A Helmet When Biking? No Information not available 06/03/2024 Are You Blind Or Do You Have Difficulty Seeing? No Information not available 06/03/2024 What Is Your Level Of Caffeine Consumption? Moderate Information not available 06/03/2024 What Type Of Plasterer Journeyman Do You Use? None Information not available 06/03/2024 Have You Been To An Area Known To Be High Risk For COVID-19? No Information not available 06/03/2024 Are You Deaf Or Do You Have Serious Difficulty Hearing? No Information not available 06/03/2024 What Type Of Diet Are You Following? REGULAR Information not available 06/03/2024 What Is The Highest Grade Or Level Of School You Have Completed Or The Highest Degree You Have Received? [id number] Information not available 06/03/2024 Have There Been Any Changes To Your Family Or Social Situation? Yes Information no t available 06/03/2024 When Did You Quit Smoking? 16+yearssincelast cigarette Information not available 06/03/2024 Are There Any Guns Present In Your Home? No Information not available 06/03/2024 Which Of Your Hands Is Dominant? Left Information not available 06/03/2024 Do You Have A Medical Power Of Jewelry Sales Associate? No Information not available 06/03/2024 What Was The Date Of Your Most Recent Tobacco Screening? 10/29/2024 Information not available 10/29/2024 Do You Have Any Pets? No Information not available 06/03/2024 What Is Your Relationship Status? Information not available 06/03/2024 Have You Repeated Any Grades? No Information not available 06/03/2024 Do You Use Your Seat Belt Or Car Seat Routinely? Yes Information not available 06/03/2024 Are You Sexually Active? No Information not available 06/03/2024 Do You Have Any Siblings? 2 Sisters Information not available 06/03/2024 Do You Have Smoke And Carbon Monoxide Detectors In Your Home? No Information not available 06/03/2024 At What Age Did You Start Smoking Tobacco? 18 Information not available 06/03/2024 Are You Passively Exposed To Smoke? Yes Information no t available 06/03/2024 Are There Any Smokers In Your House? Yes Information not available 06/03/2024 How Much Tobacco Do You Smoke? No Information not available 06/03/2024 Do You Participate In Social Media? Yes Information not available 06/03/2024 Do You Use Sunscreen Routinely? Yes Information not available 06/03/2024 Has Tobacco Cessation Counseling Been Provided? No Information not available 10/29/2024 On What Date Was Tobacco Cessation Counseling Provided? 10/29/2024 Information not available 10/29/2024 How Many Years Have You Smoked Tobacco? 3 Information not available 06/03/2024 Have You Recently Traveled Abroad? No Information not available 06/03/2024 Do You Have Difficulty Walking Or Climbing Stairs? No Information not available 06/03/2024 Are You Currently In School? No Information not available 06/03/2024 What Contraceptive Method Was Reported At Start Of This Visit? Female Sterilization Information not available 10/29/2024 Do You Have Any Dietary Restrictions? No Information not available 06/03/2024 How Many Days In The Past Year Have You Consumed 4 Or More Drinks? 3 Information no t available 06/03/2024 Sex: Female Functional Status Question Answer Note LastModified by Organizat ion Details LastModified Time Do you use any illicit or recreational drugs? No Information not available 06/03/2024 Do you or have you ever used any other forms of tobacco or nicotine? No Information not available 06/03/2024 What is your level of alcohol consumption? Occasional Information not available 06/03/2024 Are you currently employed? No Information not available 06/03/2024 Do you have transportation difficulties? No Information not available 06/03/2024 Are you able to walk? YESWOREST Information not available 06/03/2024 Do you have difficulty doing errands alone? Yes Information not available 06/03/2024 Are you able to care for yourself? Yes Information n ot available 06/03/2024 Do you have difficulty dressing or bathing? No Information not available 06/03/2024 What is your exercise level? Moderate Information not available 06/03/2024 Mental Status Question Answer Note LastModified by Organizat ion Details LastModified Time Do you feel stressed (tense, restless, nervous, or anxious, or unable to sleep at night)? [id number] Information not available 06/03/2024 Do you have difficulty concentrating, remembering or making decisions? Yes Information no t available 06/03/2024 Are you or have you been involved with bullying? No Information not available 06/03/2024 Family History Relationship Description Onset Age of this Age Resolved Age Notes LastModified by Organization Details LastModified Time Unspecified Relation Osteoporosis Not available 05/24 14:42:25 Medical History Condition Response Coronary Artery Disease N Gout N Other N Kidney Stones N Blood Diseases N Hyperthyroidism N Breast Cancer N Blood Transfusion N Emergency room visit since last appointm ent. N Lung Disease N COPD N Depression Y Hypothyroidism N Dermatologic Disorders N Defects or Inherited Disease N Developmental or Behavioral Disorders N Breast Problem N Difficulty Swallowing N Anesthesia Complications N History of STI N Anxiety Disorder N Meniere's disease N Autoimmune disease N Muscle, Joint, or Bone Problems N Vision or Eye Problems N Arthritis N Infertility N Polyps N Mental Disorder N Congenital Anomalies N Acid Reflux (GERD) Y Cancer Y Stroke N Neurologic/Epilepsy N Endometriosis N Bladder or Kidney Problems Y High Cholesterol N Liver Disease N Organ Transplant N Psychiatric/Mental Health Condition N Dialysis N Headaches Y Fibromyalgia Y Schizophrenia N Kidney Disease N Allergies/Hayfever N Heart Problems N Ear or Hearing Problems N Hospitalizations N Learning Disorder N Artificial Joints N Thyroid Problems N GI Problems N Acne N ADD/ADHD N Eating Disorder N Anemia N Constipation N Mental Illness N Diabetes N Ovarian Cancer N Bedwetting N Hepatitis/Liver Disease N Tuberculosis N Eczema N Abuse/Domestic Violence N Diverticulitis N Asthma N Trauma/Violence N Substance Abuse N Reflux/GERD N Depression/ depression N Hepatitis N Heart Disease N Pulmonary Embolism N Tourette Syndrome N Chronic Ear Infections N Pre-Eclampsia N Hypertension Y Chicken Pox N Autism Spectrum Disorder (ASD) N Osteoporosis Y Thrombophilias N Gynecological History Statement/Question Response Menses Monthly N HPV Vaccine N Date of Last Pap Smear Current Control Method Menopause Most Recent Mammogram 07/15/2024 Age at First Child 24 Obstetrics History GPAL:G 1 P 1 0 0 1 Type Value Multiple Births 0 Full Term 1 Induced 0 Spontaneous 0 Premature 0 Living 1 Ectopics 0 Total 1 Immunizations Vaccine Type Date Status Note Provider Nam e and Address Organization Details Recorded Time Tdap 2 completed SHON Sinclair [address] [place] [address], [phone], [employer] 06/03/2024 14:54:36 Tdap 1 completed Pérez Susan null, [employer] 09/02/2024 11:12:25 Influenza, split virus, trivalent, preservative 7 completed Pérez [place] null, [employer] 09/02/2024 11:12:25 Influenza, split virus, trivalent, preservative 8 completed Pérez [place] null, [employer] 09/02/2024 11:12:25 Influenza, split virus, trivalent, PF 8 completed Pérez [place] null, [employer] 09/02/2024 11:12:25 Td (adult), 2 Lf tetanus toxoid, preservative free, adsorbed 2 completed Pérez [place] null, [employer] 09/02/2024 11:12:25 Influenza, split virus, quadrivalent, PF 7 completed Pérez [place] null, [employer] 09/02/2024 11:12:25 Influenza, split virus, quadrivalent, PF 1 completed Pérez [place] null, [employer] 09/02/2024 11:12:25 Influenza, split virus, quadrivalent, PF 8 completed Pérez Susan null, [employer] 09/02/2024 11:12:25 Influenza, split virus, quadrivalent, PF 2 completed Pérez Susan null, [employer] 09/02/2024 11:12:25 Influenza, split virus, quadrivalent, PF 3 completed Pérez [place] null, [employer] 09/02/2024 11:12:25 Influenza, split virus, quadrivalent, PF 0 completed Pérez Susan null, [employer] 09/02/2024 11:12:25 Influenza, split virus, quadrivalent, PF 9 completed Pérez [place] null, [employer] 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 5057597491 M87.08 Deficiency of vitamin D2 477742125 E55.9 Depressive disorder 3548 9007 F32.A Allergic rhinitis 965958 04 J30.9 Restless legs 56859951 G 25.81 Urinary incontinence 165 811323 R32 Gastroesop hageal reflux disease 482271517 K21.00 Hyperlipidemia 69264444 E78.5 Insomnia 668153397 G47.0 0 Spasm 04743878 R25.2 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 Screening mammography 24 369207 Z12.31 [id number] Radha Rene NP [facility] [address] [place] [address] [id number] 2 09/02/2024 10:39:34 09/02/2024 12:44:05 Hyperlipidemia 46823218 E78.5 Gastroesop hageal reflux disease 311673089 K21.00 History of non-Hodgkins lymphoma 422259732 Z85.72 History of acute lymphoid leukemia 1204107616 67546483 Z85.6 Essential hypertension 53511574 I10 Adult heal th examination 845173179 Z00.00 Fatigue 19113551 R53.83 Vitamin D deficiency 347 25154 E55.9 Viral screening 22214903 4 Z11.59 Long-term drug therapy 017303108 Z79.891 Pain of ri ght shoulder joint 7851548316 5417768 M25.511 Pain of right wrist 3169 741610 77398 M25.324 [id number] Radha Rene NP [facility] [address] [place] [address] [id number] 2 09/16/2024 11:31:23 09/16/2024 14:01:16 Insomnia 917768735 G47.00 Essential hypertension 64908811 I10 Patient to keep bp log and f/u in 2 weeks [id number] Radha Rene NP [facility] [address] [place] [address] [id number] 2 10/02/2024 16:46:53 10/02/2024 17:58:06 Insomnia 789772641 G47.00 Spasm of back muscles 20 3191343 M62.830 Overactive urinary bladder 690026933 N32.81 Restless legs 59384663 G 25.81 Depressive disorder 3548 9007 F32.A [id number] SHON Sinclair [facility] [address] [place] [id number] 2 10/29/2024 16:55:45 10/29/2024 17:31:07 Gastroesophageal reflux disease 065097887 K21.00 Insomnia 675848399 G47.0 0 Essential hypertension 03187818 I10 Health Concerns Section Related Observation LastModified by Organization Detai ls LastModified Time None Recorded Concern Status LastModified by Organization Details LastModified Time None Recorded Advance Directives Directive N: Payers Insurance Date Sequence Insurance Name Policy Number Policy Raman Covered Member ID Raman Member ID Guarantor Name 10/29/2024 1 [employer] [place] (MEDICAID HMO) Iliana Hernandez [id number] Iliana Hernandez Notes Date Note Type Note Provider Name and Address Organization Details Recorded Time 06/03/2024 text/html Patient presents to establish care.Cough, congestion, runny nose, scratchy throat, body aches X 5 days. Sister has COVID.ALso would like to change her anxiety/depression meds. Currently on WEllbutrin. Has been on that for years and no longer thinks that is is working like it once did. SHON Sinclair [address] [place] [address], [phone], [employer] 06/03/2024 15:40:24 09/02/2024 text/html Patient presente d to clinic today to establish care. Patient reports that she sees Dr. Gtz for urology at [facility]. Patient reports she had a Total Hysterectomy in 1996 in [facility] secondary to endometriosis. Patient reports that she was seen at [facility] for Non hodgkins lymphoma at age 14, and was dx with ALL at 26 and reports that [facility] continued to see her. Patient states that during that time she received a lot of steroids that affected her shoulder joints and hip joints and has had resurfacing of bilateral hips and resurfacing of right shoulder. Patient also reports that during her chemo she did have a line that was releasing chemo around her heart that they were concerned would cause damage and states she was supposed to be followed by cardiology for echos, but states seen electronic resources librarian at [facility] who discharged her. Patient states that she is having horrible pain in her right shoulder and states she thinks that after sx the PT messed it back up. Patient also complains of pain in right wrist that shoots up to shoulder and reports numbness and tingling in fingers. Patient states she would like to have an orthopedic referral and have it looked at again because the pain continues to get worse and has limited ROM. Patient reports she had Colonoscopy last year at [facility] and was normal. Patient states she used to take lisinopril but states her bp got better and she did not like the lisinopril so stopped taking it. Patient reports is up to date on her Mammogram and had it done this past year. Patient has no additional complaints or concerns today. Radha Rene NP [address] [place], [phone], [employer] 09/02/2024 14:17:17 09/16/2024 text/html Patient presente d to clinic today to f/u on lab work and htn. Patient states that she had to reschedule her cardiology appt secondary to weather but does have upcoming appt. Patient states she has not received call to schedule her orthopedic visit. Patient states kept bp log and bp is avg systolic 130s and diastolic 90s and 100s. Patient does also complain that she has had some difficulty sleeping and states used to take trazodone and reports it worked well. Radha Rene NP [address] [place], [phone], [employer] 09/16/2024 15:11:09 10/02/2024 text/html Presented to clinic today to follow-up on chronic conditions. Patient states that she needs refill on Clarbidopa for restless legs. Patient states has taken this medication for 15 years and reports that it helps. Patient also reports that she has overactive bladder and used to see Dr. Arriola and needs refill on mirabegron. Patient also reports needs refill for wellbutrin for depression and states current dosage is working well. Patient also continues to complain of muscle spasms in back and states occasionally gets them around her shoulders. Patient states she is still having issues with sleep and would like to go up on her trazodone. Patient states that she did see her electronic resources librarian last week and states was told to f/u in 1 year. Patient reports that her bp has been doing well and systolic has been running 130s and diastolic in 70s at home. Patient has no further complaints or concerns for today's visit. Radha Rene NP [address] [place], [phone], [employer] 10/02/2024 17:55:06 10/29/2024 text/html Patient presents for followup. History of GERD, HTN, insomnia. 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 She is stiff and sore today. She fell last week when she stood up and her foot had fallen asleep. SHON Sinclair [address] [place] [address], [phone], [facility] [employer], [facility]. 10/29/2024 17:47:19 OBGyn Episode No OBEpisode recorded.
[2025-01-27 12:11] LABS: Blood Urea Nitrogen 23 mg/dl (7-17); Creatinine,Serum 0.80 mg/dl (0.52-1.04); Estimated Glomerular Filt Rate 75 ml/min (>60); GFR (African American) 91 ML/MIN (>60)
[2025-01-27 14:53] LABS: Microscopic, Urine URINE MICROSCOPIC (MICROSCOPIC)
[2025-01-27 15:07] LABS: Bilirubin,Urine Negative (Negative); Color,Urine YELLOW (Yellow); Glucose,Urine (UA) Negative (Negative); Ketones,Urine Negative (Negative); Leukocyte Esterase,Urine Negative (Negative); PH,Urine 6.0 (5.0-8.5); Protein,Urine Negative (Negative); Specific Gravity, Urine >= 1.030 (1.005-1.030); Urobilinogen,Urine 0.2 EU/dl (0.2)
[2025-01-27 15:42] LABS: Bacteria,Urine Trace /lpf; RBC,Urine 20-50 #/hpf (0-3)
== END 2025-01-27 23:59 | disposition home or self-care (01) ==
LOC: LAB 11:21
PROVIDERS: PCP Physician Assistant; Visit Provider Urology
DX: N34.2 Other urethritis (principal); N32.81 Overactive bladder; N28.1 Cyst of kidney, acquired
CPT/HCPCS: 36415; 81001; 82565; 84520; 87086

== ENCOUNTER 2025-02-03 11:00 | Outpatient (CLI) | payer MEDICAID, SELFPAY ==
[2025-02-03 16:39] LABS: Microscopic, Urine URINE MICROSCOPIC (MICROSCOPIC)
[2025-02-03 18:04] LABS: Bilirubin,Urine Negative (Negative); Color,Urine YELLOW (Yellow); Glucose,Urine (UA) Negative (Negative); Ketones,Urine Negative (Negative); Leukocyte Esterase,Urine Negative (Negative); PH,Urine 6.0 (5.0-8.5); Protein,Urine Negative (Negative); Specific Gravity, Urine 1.025 (1.005-1.030); Urobilinogen,Urine 0.2 EU/dl (0.2)
[2025-02-03 18:39] LABS: Bacteria,Urine 2+ /lpf
--- OUTSIDE RECORDS SUMMARY | 2025-02-04 13:19 | XMS_ITS | Clinical Summary ---
Author Organization [facility] Address [address] [place] [address] Care Team Providers Care Pipe Roller Name Role Phone Henrry Salazarie Joan MENENDEZ Primary Care Provider [phone] Allergies Active Allergy Reactions Criticality Noted Date [...] spray 50 sprays. 05/07/2020 Active HYDROcodone-acet aminophen ([place]) 7.5-325 MG tablet Take 1 tablet by [...] 2021 [facility]Y-Zoster Vaccines (1 of 2) 2021 [id number]-[id number] Vaccine (1 - season) 2024 [facility]Y-Influenza Vaccine [...] patient's age to complete this topic Insurance [facility] [place] [address] Care Teams Pipe Roller Relationship Specialty Start Date End Date Rianna Salazar PA [address] [place] [address] [facility] - General 12/24/20
--- OUTSIDE RECORDS SUMMARY | 2025-02-04 13:20 | XMS_ITS | Data Portability ---
Author Organization [facility] & GERALD Neumann ADMIN Address [address] [place] [id number] Care Team Providers Care Strip Catcher Name Role Phone CAMILLESara JIN Primary Care Provider Assessment No assessment recorded. Plan of Treatment Reminders Order Date Submit Date Provider Last Modified By Organization Details Last Modified Time Details Appointments None recorded. Lab TSH, serum or plasma 2023 [facility] (Laboratory), [address] [place], [address], 14:09:59 CBC w/ auto diff 2023 [facility] (Laboratory), [address] [place], [address], 4 13:06:30 CMP, serum or plasma 2023 [facility] (Laboratory), [address] [place], [address], 4 14:09:56 lipid panel, serum 2023 [facility] (Laboratory), [address] [place], [address], 4 14:09:54 vitamin D, 25-hydroxy, total, serum [address] (Laboratory), [address] [place], [address], 4 11:40:39 vitamin B12 + folate, serum or blood [address] (Laboratory), [address], [address], 4 11:40:01 hemoglobin A1c + average glucose, QN, blood [address] (Laboratory), [address], [address], 4 11:41:33 Referral pain management referral 2023 theo Mayers DO, [address] [facility], [address], [place], [address], 4 08:02:02 orthopedic surgeon referral 2023 theo Howard MD, [address] [facility], [address], [place], [address], 5 07:20:25 physical therapist referral 2023 [facility], [address] [place], [address], 4 07:30:24 Procedures None recorded. Surgeries None recorded. Imaging MAMMO, screening, digital, bilateral 2023 [email or web address] [facility] (Scheduling), [address], [place], [address], 4 09:55:48 XR, hip, bilateral, 3 or 4 view 2023 [facility] (Scheduling), [address], [place], [address], 4 07:27:05 XR, hip + pelvis, bilateral 2023 [facility] (Scheduling), [address], [place], [address], 10:34:29 Medication Orders None recorded. Patient TargetsNo targets recorded. Patient InstructionsNo instructions recorded. Reason for Referral Orthopedic Surgeon Referral for Osteonecrosis of bilateral hips Referring Physician: Jin Rosas [facility], Encounter Date: 05/02/2024 Physical Therapist Referral for Osteonecrosis of bilateral hips Referring Physician: Jin Rosas [facility], Encounter Date: 05/02/2024 Pain Management Referral for Chronic pain syndrome Referring Physician: Jin Rosas [facility], Encounter Date: 05/02/2024 Results Created Date Observation Date Name Description Value Unit Range Abnormal Flag Note LastModifiedBy Organization Detail LastModifiedTime 05/02/2005/02/2024 CBC AUTO W DIFF WBC 7.2 10 4.5-11 .5 Not Available [facility] (Lab Registration) [address], [place], [address], 05/02/2024 13:06:30 05/02/20 24 05/02/2024 CBC AUTO W DIFF RBC 4.20 10 4.25-5 .57 low Not Available [facility] (Lab Registration) [address], [place], [address], 05/02/2024 13:06:30 05/02/20 24 05/02/2024 CBC AUTO W DIFF HGB 12.8 g/dL 12.0-1 5.7 Not Available [facility] (Lab Registration) [address] [place], [address], 05/02/2024 13:06:30 05/02/20 24 05/02/2024 CBC AUTO W DIFF HCT 39.0 % 36.0-4 7.0 Not Available [facility] (Lab Registration) [address] [place], [address], 05/02/2024 13:06:30 05/02/20 24 05/02/2024 CBC AUTO W DIFF MCV 92.9 fL 80-95 Not Available [facility] (Lab Registration) [address] [place], [address], 05/02/2024 13:06:30 05/02/20 24 05/02/2024 CBC AUTO W DIFF MCH 30.5 pg 27.0-3 4.0 Not Available [facility] (Lab Registration) [address] [place], [address], 05/02/2024 13:06:30 05/02/20 24 05/02/2024 CBC AUTO W DIFF MCHC 32.8 g/dL 32.0-3 6.0 Not Available [facility] (Lab Registration) [address] [place], [address], 05/02/2024 13:06:30 05/02/20 24 05/02/2024 CBC AUTO W DIFF platelet count 262 10 150-45 0 Not Available [facility] (Lab Registration) [address] [place], [address], 05/02/2024 13:06:30 05/02/20 24 05/02/2024 CBC AUTO W DIFF RDW 12.8 % 12.3-1 5.1 Not Available [facility] (Lab Registration) [address] [place], [address], 05/02/2024 13:06:30 05/02/20 24 05/02/2024 CBC AUTO W DIFF MPV 9.2 fL 7.4-10 .4 Not Available [facility] (Lab Registration) [address] [place], [address], 05/02/2024 13:06:30 05/02/20 24 05/02/2024 CBC AUTO W DIFF granulocyte% 75.5 % 40-75 high Not Available [facility] (Lab Registration) [address] [place], [address], 05/02/2024 13:06:30 05/02/20 24 05/02/2024 CBC AUTO W DIFF lymphocyte% 13.1 % 15-57 low Not Available [facility] (Lab Registration) [address], [place], [address], 05/02/2024 13:06:30 05/02/20 24 05/02/2024 CBC AUTO W DIFF monocyte% 5.4 % 4.0-12 .0 Not Available [facility] (Lab Registration) [address], [place], [address], 05/02/2024 13:06:30 05/02/20 24 05/02/2024 CBC AUTO W DIFF eosinophil% 5.0 % 0.0-4. 0 high Not Available [facility] (Lab Registration) [address] [place], [address], 05/02/2024 13:06:30 05/02/20 24 05/02/2024 CBC AUTO W DIFF basophil% 0.6 % 0.0-1. 0 Not Available [facility] (Lab Registration) [address] [place], [address], 05/02/2024 13:06:30 05/02/20 24 05/02/2024 CBC AUTO W DIFF immature granulocytes % 0.4 % 0.0-0. 8 Not Available [facility] (Lab Registration) [address] [place], [address], 05/02/2024 13:06:30 05/02/20 24 05/02/2024 CBC AUTO W DIFF granulocyte# 5.42 10 Not Available [facility] (Lab Registration) [address] [place], [address], 05/02/2024 13:06:30 05/02/20 24 05/02/2024 CBC AUTO W DIFF lymphocyte# 0.94 10 Not Available [facility] (Lab Registration) [address] [place], [address], 05/02/2024 13:06:30 05/02/20 24 05/02/2024 CBC AUTO W DIFF monocyte# 0.39 10 Not Available [facility] (Lab Registration) [address] [place], [address], 05/02/2024 13:06:30 05/02/20 24 05/02/2024 CBC AUTO W DIFF eosinophil# 0.36 10 Not Available [facility] (Lab Registration) [address] [place], [address], 05/02/2024 13:06:30 05/02/20 24 05/02/2024 CBC AUTO W DIFF basophil# 0.04 10 Not Available [facility] (Lab Registration) [address] [place], [address], 05/02/2024 13:06:30 05/02/20 24 05/02/2024 CBC AUTO W DIFF immature granulocytes # 0.03 10 Not Available [facility] (Lab Registration) [address] [place], [address], 05/02/2024 13:06:30 05/02/20 24 05/02/2024 CBC AUTO W DIFF manual differential NO Not Available [facility] (Lab Registration) [address] [place], [address], 05/02/2024 13:06:30 05/02/20 24 05/02/2024 CBC AUTO W DIFF note Unles s other forrest noted testi ng perfo rmed at: [facility] [address] [place] [address] [phone] Clifton hooks MD CLIA: [id number] Not Available [facility] (Lab Registration) [address] [place], [address], 05/02/2024 13:06:30 05/02/20 24 05/02/2024 HEMOG LOBIN A1C glycosylated hemoglobin A1C 5.3 % 4.5-6. 2 Not Available [facility] (Lab Registration) [address] [place], [address], 05/02/2024 13:15:20 05/02/20 24 05/02/2024 HEMOG LOBIN A1C estimated average glucose 105 mg/dL 82-131 Not Available [facility] (Lab Registration) [address], [place], [address], 05/02/2024 13:15:20 05/02/20 24 05/02/2024 HEMOG LOBIN A1C note Unles s other forrest noted testi ng perfo rmed at: [facility] [place] [address] [phone] Clifton hooks MD CLIA: [id number] Not Available [facility] (Lab Registration) [address], [place], [address], 05/02/2024 13:15:20 05/02/20 24 05/02/2024 LIPID PANEL triglyceride 80 mg/dL 20-200 The Natio nal Madisyn st[employer] l [employer]ca tion Progr am (NCEP ) has set the follo wing guide lines for Fasti ng Trigl yceri sue: AMBER L: <150 mg/dL BORDE RLINE HIGH: 150 - 199 mg/dL HIGH: 200 - 499 mg/dL VERY HIGH: > or =500 mg/dL Not Available [facility] (Lab Registration) [address], [place], [address], 05/02/2024 14:09:54 05/02/2005/02/2024 LIPID PANEL cholesterol 167 mg/dL 0-200 The Natio nal Madisyn stero l Educa tion Progr am (NCEP ) has set the follo wing guide lines for Fasti ng Madisyn stero l: KAEL ABLE: <200 mg/dL BORDE RLINE HIGH: 200 - 239 mg/dL HIGH: > or =240 mg/dL Not Available [facility] (Lab Registration) [address], [place], [address], 05/02/2024 14:09:54 05/02/20 24 05/02/2024 LIPID PANEL HDL cholesterol 68 mg/dL 60- The Natio nal Madisyn stero l Educa tion Progr am ([facility] ) has set the follo wing guide lines for Fasti ng HDL Madisyn stero l: LOW HDL: <40 mg/dL AMBER L: 40 - 60 mg/dL KAEL ABLE: >60 mg/dL Not Available [facility] (Lab Registration) [address], [place], [address], 05/02/2024 14:09:54 05/02/20 24 05/02/2024 LIPID PANEL LDL calculated 83 mg/dL 100- low The Natio nal Madisyn stero l Educa tion Progr am ([employer] ) has set the follo wing guide lines for Fasti ng LDL Madisyn stero l: OPTIM AL: < 100 mg/dL LOW RISK: 100 - 129 mg/dL BORDE RLINE HIGH: 130 - 159 mg/dL HIGH: 160 - 189 mg/dL VERY HIGH: > or = 190 mg/dL Not Available [facility] (Lab Registration) [address] [place], [address], 05/02/2024 14:09:54 05/02/20 24 05/02/2024 LIPID PANEL chol/HDL ratio 2 ratio -5 Not Available [facility] (Lab Registration) [address], [place], [address], 05/02/2024 14:09:54 05/02/20 24 05/02/2024 LIPID PANEL note Unles s other forrest noted testi ng perfo rmed at: [facility] [address] [place] [address] [phone] Clifton hooks MD CLIA: [id number] Not Available [facility] (Lab Registration) [address] [place], [address], 05/02/2024 14:09:54 05/02/20 24 05/02/2024 COMP METAB OLIC PANEL sodium 140 mmol/ L 136-14 5 Not Available [facility] (Lab Registration) [address] [place], [address], 05/02/2024 14:09:56 05/02/2005/02/2024 COMP METAB OLIC PANEL potassium 3.9 mmol/ L 3.5-5. 1 Not Available [facility] (Lab Registration) [address] [place], [address], 05/02/2024 14:09:56 05/02/2005/02/2024 COMP METAB OLIC PANEL chloride 105 mmol/ L 98-107 Not Available [facility] (Lab Registration) [address] [place], [address], 05/02/2024 14:09:56 05/02/2005/02/2024 COMP METAB OLIC PANEL carbon dioxide 28 mmol/ L 21-32 Not Available [facility] (Lab Registration) [address] [place], [address], 05/02/2024 14:09:56 05/02/2005/02/2024 COMP METAB OLIC PANEL anion gap 7.0 Not Available [facility] (Lab Registration) [address] [place], [address], 05/02/2024 14:09:56 05/02/2005/02/2024 COMP METAB OLIC PANEL glucose 87 mg/dL 70-110 Not Available [facility] (Lab Registration) [address] [place], [address], 05/02/2024 14:09:56 05/02/2005/02/2024 COMP METAB OLIC PANEL blood urea nitrogen 25 mg/dL 7-18 high Not Available [facility] (Lab Registration) [address] [place], [address], 05/02/2024 14:09:56 05/02/2005/02/2024 COMP METAB OLIC PANEL creatinine 0.7 mg/dL 0.6-1. 0 Not Available [facility] (Lab Registration) [address] [place], [address], 05/02/2024 14:09:56 05/02/20 24 05/02/2024 COMP METAB OLIC PANEL BUN/creatini ne ratio 35.7 ratio 9-21 high Not Available [facility] (Lab Registration) [address], [place], [address], 05/02/2024 14:09:56 05/02/20 24 05/02/2024 COMP METAB OLIC PANEL estimated glom filtration rate 104 mL/mi n >60- GFR LIMIT ATION : The eGFR equat ion CKD-E PI 2020 is not appli cable for pedia tric patie nts or great er than 90 years of age. The follo wing condi tions may alter the GFR resul t: extre mes in body size, malnu triti on or obesi ty, skele peter muscl e disea se, parap legia or quadr ipleg ia, veget liudmila diet or rapid ly ramirez ing kiney funct ion. Not Available [facility] (Lab Registration) [address], [place], [address], 05/02/2024 14:09:56 05/02/2005/02/2024 COMP METAB OLIC PANEL total protein 7.3 g/dL 6.4-8. 2 Not Available [facility] (Lab Registration) [address], [place], [address], 05/02/2024 14:09:56 05/02/20 24 05/02/2024 COMP METAB OLIC PANEL albumin 3.6 g/dL 3.4-5. 0 Not Available [facility] (Lab Registration) [address] [place], [address], 05/02/2024 14:09:56 05/02/2005/02/2024 COMP METAB OLIC PANEL calcium 9.1 mg/dL 8.5-10 .1 Not Available [facility] (Lab Registration) [address], [place], [address], 05/02/2024 14:09:56 05/02/2005/02/2024 COMP METAB OLIC PANEL corrected calcium 9.4 mg/dL 8.5-10 .1 Not Available [facility] (Lab Registration) [address], [place], [address], 05/02/2024 14:09:56 05/02/20 24 05/02/2024 COMP METAB OLIC PANEL bilirubin total 0.2 mg/dL 0.4-1. 5 low Not Available [facility] (Lab Registration) [address], [place], [address], 05/02/2024 14:09:56 05/02/2005/02/2024 COMP METAB OLIC PANEL AST (SGOT) 18 U/L 15-37 Not Available [facility] (Lab Registration) [address] [place], [address], 05/02/2024 14:09:56 05/02/2005/02/2024 COMP METAB OLIC PANEL ALT (SGPT) 17 U/L 12-78 Not Available [facility] (Lab Registration) [address] [place], [address], 05/02/2024 14:09:56 05/02/2005/02/2024 COMP METAB OLIC PANEL alk phosphatase 102 U/L 50-120 Not Available [facility] (Lab Registration) [address], [place], [address], 05/02/2024 14:09:56 05/02/2005/02/2024 COMP METAB OLIC PANEL note Unles s other forrest noted testi ng perfo rmed at: [facility] [address] [place] [address] [phone] Clifton hooks MD CLIA: [id number] Not Available [facility] (Lab Registration) [address] [place], [address], 05/02/2024 14:09:56 05/02/2005/02/2024 THYRO ID STIMU LATIN G HORMO NE thyroid stimulating hormone 2.59 mIU/m L 0.34-4 .80 Not Available [facility] (Lab Registration) [address], [place], [address], 05/02/2024 14:09:59 05/02/20 24 05/02/2024 THYRO ID STIMU LATIN G HORMO NE note Unles s other forrest noted testi ng perfo rmed at: [facility] [address] [place] [address] [phone] Clifton hooks MD CLIA: [id number] Not Available [facility] (Lab Registration) [address] [place], [address], 05/02/2024 14:09:59 05/02/20 24 05/02/2024 VITAM IN D TOTAL (D2+D 3) vitamin D25 (D2+D3) 34.8 NG/mL 30-100 Not Available [facility] (Lab Registration) [address] [place], [address], 05/02/2024 14:10:01 05/02/2005/02/2024 VITAM IN D TOTAL (D2+D 3) note Unlgutierrez s other forrest noted testi ng perfo rmed at: [facility] [address] [place] [address] [phone] Clifton hooks MD CLIA: [id number] Not Available [facility] (Lab Registration) [address] [place], [address], 05/02/2024 14:10:01 05/02/2005/02/2024 VITAM IN B12 vitamin B12 397 pg/mL 193-98 6 Not Available [facility] (Lab Registration) [address] [place], [address], 05/02/2024 14:10:04 05/02/20 24 05/02/2024 VITAM IN B12 folate (folic acid), serum 5.0 NG/mL 8.6-58 .9 low Not Available [facility] (Lab Registration) [address] [place], [address], 05/02/2024 14:10:04 05/02/20 24 05/02/2024 VITAM IN B12 note Unles s other forrest noted testi ng perfo rmed at: [facility] [address] [place] [address] [phone] Clifton hooks MD CLIA: [id number] Not Available [facility] (Lab Registration) [address] [place], [address], 05/02/2024 14:10:04 05/07/20 24 05/02/2024 pelvi s 1 to 2V [facility] [place] [address] Phone: Fax: Name: ALBER HERNANDEZ Exam Date: 2023 : 1969 Age 53 years Gender : F Access ion: [id number] Physic parvin: BERNA ROSAS NDE Facili ty: PSYCHIATRIC Facili ty HSV: Outpat ient Exam: PELVIS 1 TO 2V EXAM DESCRI PTION: PELVIS 1 TO 2V CLINIC AL HISTOR Y: 53 years Female , . COMPAR MIRTHA: None. 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 No eviden ce of acute fractu re or disloc ation. IMPRES BIRD: Postop erativ e change s. Electr onical ly signed by: Dragan Kruse MD 2023 01:08 PM EDT RP Workst ation: [id number] Dictat ed By: Dragan Kruse Transc ribed By: Transc ribed On: 2023 12:54 PM Electr onical ly signed by: Dragan Kruse 2023 Thank you for referr ALBER Burden to [facility]. Legall y authen ticate d by BRANDY Mitchell III, MD 2023-07 12:54: 11 CC'ed Logic: Orderi ng Provid er: SOKAN BABATU NDE CC Provid er: SOKAN BABATU NDE Attend ing Provid er: SOKAN BABATU NDE Referr ing Provid er: SOKAN BABATU NDE Admitt ing Provid er: SOKAN BABATU NDE tpardini [facility] (Radiology) [address] , [place], [address], 05/07/2024 16:50:44 Result Notes None recorded. Problems Name Problem SNOMED Code Status Onset Date Resolution Date Notes Provider Name and Address Organization Details Recorded Time Chronic pain syndrome 599469977 Active 2023 Gaby Pardini null, [place] - [facility] [place] & [place] 4 11:32:21 Urinary incontinence 688893060 Active 2023 Gaby Pardini [place], [place] [facility] [place] 11:32:29 Anxiety disorder 134029435 Active 2023 Gaby Pardini [place], [place] [facility] [place] 11:32:38 Hyperlipidemia 59439848 Active 2023 Gaby Pard[place], [place] [facility] [place] 4 11:32:45 Vitamin D deficiency 00747437 Active 2023 Gaby Pard[place] [facility] [place] 4 11:32:54 Restless legs 54163991 Active 2023 Gaby Pardini [place], [place] [facility] [place] 11:33:07 Allergic rhinitis 74191087 Active 2023 Gaby Pard[place] [facility] [place] 4 11:33:16 Chronic depression 619807131 Active 2023 Gabymercedez bocanegra, [place] - [facility] & [place] 4 11:33:24 Insomnia 146087537 Active 2023 Gabymercedez bocanegra, [place] - [facility] & [place] 4 11:33:32 Osteoporosis 54834188 Active 2023 Gabymercedez bocanegra, [place] - [facility] & [place] 4 11:33:41 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 Procedures Surgical History Date Name Laterality Status Provider Name and Address Organization Details Recorded Time Gallbladder Surgery completed Gabymercedez [facility] & [place] 05/02/2024 11:35:58 [facility] [place] 05/02/2024 11:36:06 Hyste[facility] [place] 05/02/2024 11:37:21 Imaging Results None recorded. Procedure Notes None recorded. Medical Equipment None Reported. Allergies Allergen ID Allergen Name Allergen Category Reaction Reaction Severity Criticality Documentation Date Start Date Code Code System Note Provider Name and Address Organization Details Recorded Time 791217 codeine medicatio n Not available Not available Not available 05/03/2024 4740 RxNorm Loren James [place], [place] - [place] [facility] & [place] 11:47:22 Medications Name Sig Start Date Stop Date Status Note LastModified by Organization Details LastModified Time oxybutynin chloride ER 10 mg tablet,exte nded release 24 hr TAKE 1 TABLET BY MOUTH DAILY 05/02 completed Not Available Not Available Not Available tizanidine 4 mg tablet Take 1 tablet every 8 hours by oral route as needed for 30 days. active Not Available Not Available No t Available alendronate 70 mg tablet Take 1 tablet every week by oral route as directed. active Not Available Not Available No t Available carbidopa ER 50 mg-levodopa 200 mg tablet,exte nded release Take 2 tablets every day by oral route as directed for 30 days. active Not Available Not Available No t Available hydrocodone 10 mg-acetamin ophen 325 mg tablet TAKE 1 TABLET BY MOUTH THREE TIMES DAILY FOR PAIN 05/02 completed Not Available Not Available Not Available omeprazole 40 mg capsule,del ayed release Take 1 capsule every day by oral route as directed for 30 days. active Not Available Not Available No t Available aspirin 81 mg tablet,samantha yed release Take 1 tablet every day by oral route as directed for 30 days. active Not Available Not Available No t Available spironolact one 25 mg tablet 05/02 completed Not Available Not Available Not Available terbinafine HCl 250 mg tablet 05/02 completed Not Available Not Available Not Available magnesium oxide 400 mg (241.3 mg magnesium) tablet Take 1 tablet every day by oral route as directed for 30 days. 05/02 completed Not Available Not Available Not Available trazodone 100 mg tablet Take 1 tablet every day by oral route as directed for 30 days. active Not Available Not Available No t Available ropinirole 2 mg tablet Take 1 tablet every day by oral route as directed for 30 days. active Not Available Not Available No t Available lisinopril 10 mg tablet Take 1 tablet every day by oral route as directed for 30 days. 05/02 completed Not Available Not Available Not Available ergocalcife rol (vitamin D2) 1,250 mcg (50,000 unit) capsule TAKE 1 CAPSULE BY MOUTH ONCE WEEKLY active Not Available Not Available No t Available estradiol 0.01% (0.1 mg/gram) vaginal cream active Not Available Not Available Not Available zolpidem 10 mg tablet Take 1 tablet every day by oral route. active Not Available Not Available No t Available fluticasone propionate 50 mcg/actuati on nasal spray,suspe nsion [place] 1 spray every day by nasal route as directed for 30 days. active Not Available Not Available No t Available rosuvastati n 5 mg tablet Take 1 tablet every day by oral route as directed for 30 days. active Not Available Not Available No t Available bupropion HCl XL 150 mg 24 hr tablet, extended release Take 1 tablet every day by oral route as directed for 30 days. active Not Available Not Available No t Available FeroSul 325 mg (65 mg iron) tablet Take 1 tablet every day by oral route as directed for 30 days. 05/02 completed Not Available Not Available Not Available levocetiriz ine 5 mg tablet Take 1 tablet every day by oral route as directed for 30 days. active Not Available Not Available No t Available mirabegron ER 50 mg tablet,exte nded release 24 hr Take 1 tablet every day by oral route as directed for 30 days. active Not Available Not Available No t Available [facility] COVID-19 Antigen Rapid Home Test kit 05/02 completed Not Available Not Available Not Available Vitals Date Recorded Body height Body mass index (BMI) Body weight Body temperature Oxygen saturation Oxygen saturation in Arterial blood by Pulse oximetry Heart rate Respiratory rate Systolic And Diastolic Provider Name and Address Organization Details Last Updated DateTime 160.02 cm 26.4 kg/m2 42315.5 4 g 97.5 [degF] 97 % 97 % 85 /min 16 /min 124/82 mm[Hg] Gaby De Los Santos [facility] & [place] 11:27:04 Social History Question Answer Notes LastModified by Organizat ion Details LastModified Time Tobacco Smoking Status Never Smoker Gaby De Los Santos [facility] & [place] 05/02/2024 11:35:09 Do You Have An Advance Directive? No Information n ot available 05/02/2024 Do You Wear A Helmet When Biking? No Information not available 05/02/2024 Are You Blind Or Do You Have Difficulty Seeing? No Information n ot available 05/02/2024 What Is Your Level Of Caffeine Consumption? Moderate Information not available 05/02/2024 In The 14 Days Before Symptom Onset, Have You Had Close Contact With A Laboratory-confirm ed COVID-19 While That Case Was Ill? No Information n ot available 05/02/2024 In The 14 Days Before Symptom Onset, Have You Had Close Contact With A Person Who Is Under Investigation For COVID-19 While That Person Was Ill? No Information not available 05/02/2024 Have You Been To An Area Known To Be High Risk For COVID-19? No Information not available 05/02/2024 Are You Deaf Or Do You Have Serious Difficulty Hearing? No Information not available 05/02/2024 What Type Of Diet Are You Following? REGULAR Information n ot available 05/02/2024 Which Illicit Or Recreational Drugs Have You Used? THC Information not available 05/02/2024 Have You Processed Blood Or Body Fluids From An Ebola Virus Disease Patient Without Appropriate PPE? No Information not available 05/02/2024 Do You Reside In Or Have You Traveled To An Area Where Ebola Virus Transmission Is Active? No Information not available 05/02/2024 Have There Been Any Changes To Your Family Or Social Situation? No Information no t available 05/02/2024 What Is The Fluoride Status Of Your Home? Unknown Information not available 05/02/2024 Are There Any Guns Present In Your Home? No Information not available 05/02/2024 Have You Recently Or Are You Planning To Travel To An Area With Zika Virus? No Information not available 05/02/2024 Do You Use Insect Repellent Routinely? Yes Information not available 05/02/2024 Do You Feel Safe At Home? Yes Information not available 05/02/2024 Do You Have A Medical Power Of Survey Superintendent? No Information not available 05/02/2024 Do You Have Any Pets? No Information not available 05/02/2024 What Is Your Relationship Status? Single Information not available 05/02/2024 Do You Use Your Seat Belt Or Car Seat Routinely? Yes Information not available 05/02/2024 Are You Sexually Active? No Information not available 05/02/2024 Do You Have Smoke And Carbon Monoxide Detectors In Your Home? No Information not available 05/02/2024 Are You Passively Exposed To Smoke? No Information no t available 05/02/2024 Do You Use Sunscreen Routinely? Yes Information not available 05/02/2024 Has Tobacco Cessation Counseling Been Provided? No Information not available 05/02/2024 Have You Used IV Drugs? No Information not available 05/02/2024 Do You Have Difficulty Walking Or Climbing Stairs? No Information not available 05/02/2024 Are You Currently In School? No Information not available 05/02/2024 Sex: Unknown Functional Status Question Answer Note LastModified by Organizat ion Details LastModified Time Do you use any illicit or recreational drugs? Yes Information not available 05/02/2024 Do you or have you ever used any other forms of tobacco or nicotine? No Information not available 05/02/2024 What is your level of alcohol consumption? None Information not available 05/02/2024 Are you currently employed? No Information not available 05/02/2024 Do you have transportation difficulties? No Information not available 05/02/2024 Are you able to walk? YESWOREST Information not available 05/02/2024 Do you have difficulty doing errands alone? No Information not available 05/02/2024 Are you able to care for yourself? Yes Information not available 05/02/2024 Do you have difficulty dressing or bathing? No Information not available 05/02/2024 What is your exercise level? None Information not available 05/02/2024 Mental Status Question Answer Note LastModified by Organizat ion Details LastModified Time Do you feel stressed (tense, restless, nervous, or anxious, or unable to sleep at night)? [id number] Information not available 05/02/2024 Do you have difficulty concentrating, remembering or making decisions? No Information no t available 05/02/2024 Family History Relationship Description Onset Age of this Age Resolved Age Notes LastModified by Organization Details LastModified Time Father Family member tpardini Not available 2023 11:34:48 Mother Family member tpardini Not available 2023 11:34:48 Medical History No medical history recorded. Gynecological HistoryNo gynecological history recorded. Obstetrics History GPAL:G 0 P 0 0 0 0 Immunizations Vaccine Type Date Status Note Provider Nam e and Address Organization Details Recorded Time Tdap 1 completed Gaby Pardini null, [place] - [facility] [place] 05/02/2024 11:27:20 Influenza, split virus, trivalent, preservative 7 completed Gaby Pardini null, [place] [facility] [place] 05/02/2024 11:27:20 Influenza, split virus, trivalent, preservative 8 completed Gaby Pardini null, [place] [facility] [place] 05/02/2024 11:27:20 Influenza, split virus, trivalent, PF 8 completed Gaby Pardini null, [place] [facility] [place] 05/02/2024 11:27:20 Td (adult), 2 Lf tetanus toxoid, preservative free, adsorbed 2 completed Gaby Pardini null, [place] [facility] [place] [facility] [place] 05/02/2024 11:27:20 Influenza, split virus, quadrivalent, PF 7 completed Gaby Pardini null, [place] [facility] [place] 05/02/2024 11:27:20 Influenza, split virus, quadrivalent, PF 1 completed Gaby Pardini null, [place] [facility] [place] 05/02/2024 11:27:20 Influenza, split virus, quadrivalent, PF 8 completed Gaby Pardini null, [place] [facility] [place] 05/02/2024 11:27:20 Influenza, split virus, quadrivalent, PF 2 completed Gaby Pardini null, [place] [facility] [place] 05/02/2024 11:27:20 Influenza, split virus, quadrivalent, PF 3 completed Gaby Pard[place] null[place] [facility] [place] 05/02/2024 11:27:20 Influenza, split virus, quadrivalent, PF 0 completed Gaby Pardini null[place] [facility] [place] 05/02/2024 11:27:20 Influenza, split virus, quadrivalent, PF 9 completed Gaby ResendizHARRY ballseteros - [facility] - [place] & [place] 05/02/2024 11:27:20 Past Encounters Encounter ID Performer Location Encounter Start Date Encounter Closed Date Diagnosis/Indication Diagnosis SNOMED-CT Code Diagnosis ICD10 Code Diagnosis Note [id number] Jin Rosas MD [facility] [address] [place] [id number] 05/02/2024 11:17:18 05/02/2024 12:05:10 Osteonecrosis of bilateral hips [id number] 5108701 M87.051 M87.052 PATIENT HAS A HISTORY OF AVASCULAR NECROSIS OF BOTH HIPS. WILL OBTAIN X-RAYS, SENT PATIENT TO PHYSICAL THERAPY WELL REFER TO ORTHOPEDIS T. History of anemia 623610 002 Z86.2 PATIENT HAS A HISTORY OF ANEMIA. AT SOME POINT SHE WAS TAKING IRON HOWEVER SHE NO LONGER TAKES IRON. WILL CHECK HER CBC TODAY. Hyperlipidemia 79864560 E78.5 PATIENT IS CURRENTLY ON ATORVASTAT IN Diabetes m ellitus screening [id number] Z13.1 OBTAIN A1C Thyroid di sorder screening 717744308 Z13.29 WILL CHECK PATIENT'S THYROID FUNCTION TESTS Vitamin deficiency 28852 002 E56.9 SHE IS ON VITAMIN-D. History of non-Hodgkins lymphoma 583541447 Z85.72 PATIENT STATES THAT SHE WAS TREATED FOR NON-HODGKI N'S LYMPHOMA A CHILD. SHE HAS REMAINED IN REMISSION SINCE THEN ACCORDING TO PATIENT. WILL OBTAIN LAB WORK. Insomnia [id number] G47.0 0 PATIENT IS REQUESTING A PRESCRIPTI ON FOR MEDICATION TO HELP INSOMNIA. SHE STATES SHE HAS TAKING A 100 MG OF TRAZODONE RIGHT NOW THAT IS NOT HELPING. Chronic pain syndrome 37 6004562 G89.4 WILL REFER PATIENT TO PAIN SPECIALIST Anxiety disorder 8292449 06 F41.9 PATIENT HAS A HISTORY OF ANXIETY DISORDER. SHE IS CURRENTLY ON BUPROPION. Restless legs 05301148 G 25.81 THIS IS BEING TREATED WITH SINEMET WELL ROPINIROLE . Overactive urinary bladder due to prolapse of female genital organ 932714821 N32.[address] PICKERING SHE IS ALSO ON MYBETRIQ Screening for malignant neoplasm of breast 103808031 Z12.39 Health Concerns Section Related Observation LastModified by Organization Detai ls LastModified Time None Recorded Concern Status LastModified by Organization Details LastModified Time None Recorded Advance Directives Directive N: Payers Insurance Date Sequence Insurance Name Policy Number Policy Raman Covered Member ID Raman Member ID Guarantor Name 05/25/2024 1 [facility] (MEDICAID HMO) Iliana Hernandez [id number] Notes Date Note Type Note Provider Name and Address Organization Details Recorded Time 05/02/2024 text/html THIS IS A NEW PATIENT WHO PRESENTS TODAY TO ESTABLISH CARE. Jin Rosas MD [address] [place] [address], [id number] & [place] 05/02/2024 12:09:20 OBGyn Episode No OBEpisode recorded.
--- OUTSIDE RECORDS SUMMARY | 2025-02-04 13:20 | XMS_ITS | Data Portability ---
Author Organization [employer] [facility] Address [address] [place] [address] Assessment Encounter Date Assessment Date Assessment LastModified by Organization Details LastModified Time 09/16/2024 09/16/2024 Discussed lab results. [email or web address] Not available 09/16/2024 15:11:04 Plan of Treatment Reminders Order Date Submit Date Provider Last Modified By Organization Details Last Modified Time Details Appointments None recorded. Lab Hepatitis C IgG Ab, qual, serum 2024 025 [facility] [address] [place], [address], 5 07:24:11 HIV 1 + 2, meaningful use set 2024 025 [facility] [address] [place], [address], 5 11:36:00 unlisted lab - toxassure flex 19, [id number] 2024 025 [employer] ([facility]), [address] [place], [address], 5 22:06:14 lipid panel, serum or plasma 2024 025 [facility] [address] [place], [address], 5 15:55:02 CBC w/ auto diff 2024 025 [employer] [facility]), [address] [place], [address], 5 15:55:01 CMP, serum or plasma 2024 025 [facility]), [address] [place], [address], 5 15:55:02 HbA1c (hemoglobin A1c), blood 2024 025 [facility], [address] [place], [address], 5 13:04:06 cobalamin and folate panel, serum 2024 025 [facility]), [address] [facility], [place], [address], 5 22:06:16 TSH + free T4, serum 2024 025 [facility]), [address] [facility], [place], [address], 5 15:55:02 vitamin D, 25-hydroxy, total, serum 2024 025 [facility]), [address] [facility], [place], [address], 5 11:39:27 rapid flu (A+B) 2023 024 [facility], [address] [facility], [place], [address], 4 15:10:54 rapid SARS CoV 2 Ag, QL, IA, upper respiratory specimen 2023 024 [facility], [address] [facility], [place], [address], 4 15:10:38 Referral interventio nal cardiology referral [address] [facility], [address], [place], [address], 5 10:39:39 orthopedic surgeon referral 2024 025 [facility] Jordan Rick DO, [address], [place], [place], [address], 5 10:10:50 Procedures None recorded. Surgeries None recorded. Imaging electrocard iogram 2024 025 [facility] (Scheduling), [address], [place], [address], 5 15:16:49 MAMMO, screening, bilateral 2023 024 [facility] (Scheduling), [facility] [address], [place], [address], 4 10:10:32 Medication Orders trazodone 150 mg tablet 2024 025 [facility], [address] [place] [address], [address], 5 17:38:57 losartan 50 mg tablet 2024 025 [facility], [address] [place] [address], [address], 5 17:38:55 omeprazole 40 mg capsule,del ayed release 2024 025 [facility], [address] [place] [address], [address], 5 17:38:54 carbidopa ER 50 mg-levodopa 200 mg tablet,exte nded release 2024 025 [facility], [address] [place] [address], [address], 5 17:48:11 tizanidine 4 mg tablet 2024 025 [facility], [address] [place] [address], [address], 5 17:48:09 trazodone 150 mg tablet 2024 025 [facility], [address] [place] [address], [address], 5 17:58:19 mirabegron ER 50 mg tablet,exte nded release 24 hr 2024 025 [facility], [address] [place] [address], [address], 5 17:48:10 bupropion HCl XL 300 mg 24 hr tablet, extended release 2024 025 [facility], [address] [place] [address], [address], 5 17:48:14 trazodone 50 mg tablet 2024 025 [facility], [address] [place] [address], [address], 5 17:58:18 losartan 50 mg tablet 2024 025 [facility], [address] [place] [address], [address], 5 13:32:38 losartan 25 mg tablet 2024 025 [facility], [address] [place] [address], [address], 5 11:59:49 Zovirax 5 % topical cream 2023 024 [facility], [address] [place] [address], [address], 4 15:12:40 Pristiq 50 mg tablet,exte nded release 2023 024 [facility], [facility] [place], [address], 11:03:33 Patient TargetsNo targets recorded. Patient Instructions Encounter Date Encounter Id Patient Instructions Last Modified By Organization Details Last Modified Time 06/03/2024 [id number] mammogram: about this test [email or web address] Not available 06/03/2024 15:32:26 insomnia: care instructions Not available 06/03/2024 15:07:19 gastroesophageal reflux disease (GERD): care instructions [email or web address] Not available 06/03/2024 15:07:19 high cholesterol : care instructions Not available 06/03/2024 15:07:19 Stress Incontine nce: Care Instructions [email or web address] Not available 06/03/2024 15:07:19 cope's esopha jailyn: care instructions [email or web address] Not available 06/03/2024 15:07:20 learning about m ood disorders Not available 06/03/2024 15:07:19 09/02/2024 [id number] gastroesophageal reflux disease (GERD): care instructions Not available 09/02/2024 11:52:11 high cholesterol : care instructions Not available 09/02/2024 11:52:11 high blood press ure: care instructions Not available 09/02/2024 11:52:11 learning about h igh blood pressure Not available 09/02/2024 11:52:11 09/16/2024 [id number] insomnia: care instructions Not available 09/16/2024 13:26:46 high blood press ure: care instructions Not available 09/16/2024 13:26:46 learning about h igh blood pressure Not available 09/16/2024 13:26:46 10/02/2024 [id number] restless legs syndrome: care instructions Not available 10/02/2024 17:41:56 learning about m ood disorders Not available 10/02/2024 17:41:56 10/29/2024 [id number] insomnia: care instructions Not available 10/29/2024 17:37:29 high blood press ure: care instructions Not available 10/29/2024 17:37:28 learning about h igh blood pressure Not available 10/29/2024 17:37:29 gastroesophageal reflux disease (GERD): care instructions [email or web address] Not available 10/29/2024 17:37:28 Reason for Referral Orthopedic Surgeon Referral for Pain of right shoulder joint Referring Physician: [facility], Encounter Date: 09/02/2024 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 Referring Physician: Radha R[facility], Encounter Date: 09/02/2024 Results Created Date Observation Date Name Description Value Unit Range Abnormal Flag Note LastModifiedBy Organization Detail LastModifiedTime 06/03/20 24 06/03/2024 rapid SARS CoV 2 Ag, QL, IA, upper respi rator y speci men SARS CoV Ag negati ve Not Available [address], [address], 06/03/2024 14:52:50 06/03/20 24 06/03/2024 rapid flu (A+B) Flu A negati ve Not Available [address], [address], 06/03/2024 14:52:39 06/03/20 24 06/03/2024 rapid flu (A+B) Flu B negati ve Not Available [address], [address], 06/03/2024 14:52:39 09/02/19 25 09/05/2024 TOXAS SURE [...] marlena consu ltati on, pleas e call . ===== ===== ===== ===== ===== ===== ===== ===== ===== ===== ===== ===== ===== === Not Available [facility] ([facility]) [address] [place], [address], 09/05/2024 22:06:14 09/02/19 25 09/05/2024 TOXAS SURE FLEX 19, UR pdf . Not Available [facility] ([facility]) [address] [place], [address], 09/05/2024 22:06:14 09/02/19 25 09/05/2024 TOXAS SURE FLEX 19, UR creatinine 67 mg/dL REFER ENCE RANGE : Ref Range >=20 Not Available [facility] ([facility]) [address] [place], [address], 09/05/2024 22:06:14 09/02/19 25 09/05/2024 TOXAS SURE FLEX 19, UR amphetamines ia Negati ve NG/mL cutoff :300 Not Available [facility] ([facility]) [address] [place], [address], 09/05/2024 22:06:14 09/02/19 25 09/05/2024 TOXAS SURE FLEX 19, UR benzodiazepi marium Negati ve Not Available [facility] ([facility]) [address] [place], [address], 09/05/2024 22:06:14 09/02/19 25 09/05/2024 TOXAS SURE FLEX 19, UR diazepam Not Detect ed NG/mg _crea t Not Available [facility] ([facility]) [address] [facility], [place], [address], 09/05/2024 22:06:14 09/02/19 25 09/05/2024 TOXAS SURE FLEX 19, UR desmethyldia zepam Not Detect ed NG/mg _crea t Not Available [facility] ([facility]) [address] [facility], [place], [address], 09/05/2024 22:06:14 09/02/19 25 09/05/2024 TOXAS SURE FLEX 19, UR oxazepam Not Detect ed NG/mg _crea t Not Available [facility] ([facility]) [address] [facility], [place], [address], 09/05/2024 22:06:14 09/02/19 25 09/05/2024 TOXAS SURE [...] live Oxaze live: None Not Available [facility] ([facility]) [address] [facility], [place], [address], 09/05/2024 22:06:14 09/02/19 25 09/05/2024 TOXAS SURE FLEX 19, UR alprazolam Not Detect ed NG/mg _crea t Not Available [facility] ([facility]) [address] [facility], [place], [address], 09/05/2024 22:06:14 09/02/19 25 09/05/2024 TOXAS SURE FLEX 19, UR alpha-hydrox yalprazolam Not Detect ed NG/mg _crea t Not Available [facility] ([facility]) [address] [place], [address], 09/05/2024 22:06:14 09/02/19 25 09/05/2024 TOXAS SURE FLEX 19, UR desalkylflur azepam Not Detect ed NG/mg _crea t Not Available [facility] ([facility]) [address] [place], [address], 09/05/2024 22:06:14 09/02/19 25 09/05/2024 TOXAS SURE FLEX 19, UR lorazepam Not Detect ed NG/mg _crea t Not Available [facility] ([facility]) [address] [place], [address], 09/05/2024 22:06:14 09/02/19 25 09/05/2024 TOXAS SURE FLEX 19, UR alpha-hydrox ytriazolam Not Detect ed NG/mg _crea t Not Available [facility] ([facility]) [address] [place], [address], 09/05/2024 22:06:14 09/02/19 25 09/05/2024 TOXAS SURE FLEX 19, UR clonazepam Not Detect ed NG/mg _crea t Not Available [facility] ([facility]) [address] [place], [address], 09/05/2024 22:06:14 09/02/19 25 09/05/2024 TOXAS SURE FLEX 19, UR 7-aminoclona zepam Not Detect ed NG/mg _crea t Not Available [facility] ([facility]) [address] [place], [address], 09/05/2024 22:06:14 09/02/19 25 09/05/2024 TOXAS SURE FLEX 19, UR midazolam Not Detect ed NG/mg _crea t Not Available [facility] ([facility]) [address] [place], [address], 09/05/2024 22:06:14 09/02/19 25 09/05/2024 TOXAS SURE FLEX 19, UR alpha-hydrox ymidazolam Not Detect ed NG/mg _crea t Not Available [facility] ([facility]) [address] [place], [address], 09/05/2024 22:06:14 09/02/19 25 09/05/2024 TOXAS SURE FLEX 19, UR flunitrazepa m Not Detect ed NG/mg _crea t Not Available [facility] ([facility]) [address] [place], [address], 09/05/2024 22:06:14 09/02/19 25 09/05/2024 TOXAS SURE FLEX 19, UR desmethylflu nitrazepam Not Detect ed NG/mg _crea t Not Available [facility] ([facility]) [address] [place], [address], 09/05/2024 22:06:14 09/02/19 25 09/05/2024 TOXAS SURE FLEX 19, UR cocaine metabolite ia Negati ve NG/mL cutoff :150 Not Available [facility] ([facility]) [address] [place], [address], 09/05/2024 22:06:14 09/02/19 25 09/05/2024 TOXAS SURE FLEX 19, UR ethanol biomarkers ia Negati ve NG/mL cutoff :500 Not Available [facility] ([facility]) [address] [place] [address], [address], 09/05/2024 22:06:14 09/02/19 25 09/05/2024 TOXAS SURE FLEX 19, UR cannabinoids ia COMMEN T NG/mL cutoff :20 Furth er testi ng indic ated Not Available [facility] ([facility]) [address] [place], [address], 09/05/2024 22:06:14 09/02/19 25 09/05/2024 TOXAS SURE FLEX 19, UR 6-acetylmorp jay ia Negati ve NG/mL cutoff :10 Not Available [facility] ([facility]) [address] [place], [address], 09/05/2024 22:06:14 09/02/19 25 09/05/2024 TOXAS SURE FLEX 19, UR opiate class ia Negati ve NG/mL cutoff :100 Not Available [facility] ([facility]) [address] [place], [address], 09/05/2024 22:06:14 09/02/19 25 09/05/2024 TOXAS SURE FLEX 19, UR oxycodone class ia Negati ve NG/mL cutoff :100 Not Available [facility] ([facility]) [address] [place], [address], 09/05/2024 22:06:14 09/02/19 25 09/05/2024 TOXAS SURE FLEX 19, UR methadone ia Negati ve NG/mL cutoff :100 Not Available [facility] ([facility]) [address] [place], [address], 09/05/2024 22:06:14 09/02/19 25 09/05/2024 TOXAS SURE FLEX 19, UR methadone mtb ia Negati ve NG/mL cutoff :100 Not Available [facility] ([facility]) [address] [place], [address], 09/05/2024 22:06:14 09/02/19 25 09/05/2024 TOXAS SURE FLEX 19, UR buprenorphin e ia Negati ve NG/mL cutoff :5.0 Not Available [facility] ([facility]) [address] [place], [address], 09/05/2024 22:06:14 09/02/19 25 09/05/2024 TOXAS SURE FLEX 19, UR fentanyl ia Negati ve NG/mL cutoff :2.0 Not Available [facility] ([facility]) [address] [facility], [place], [address], 09/05/2024 22:06:14 09/02/19 25 09/05/2024 TOXAS SURE FLEX 19, UR tapentadol ia Negati ve NG/mL cutoff :200 Not Available [facility] ([facility]) [address] [place], [address], 09/05/2024 22:06:14 09/02/19 25 09/05/2024 TOXAS SURE FLEX 19, UR propoxyphene ia Negati ve NG/mL cutoff :300 Not Available [facility] ([facility]) [address] [place], [address], 09/05/2024 22:06:14 09/02/19 25 09/05/2024 TOXAS SURE FLEX 19, UR tramadol ia Negati ve NG/mL cutoff :200 Not Available [facility] ([facility]) [address] [place], [address], 09/05/2024 22:06:14 09/02/19 25 09/05/2024 TOXAS SURE FLEX 19, UR methylphenid ate ia Negati ve NG/mL cutoff :100 Not Available [facility] ([facility]) [address] [place], [address], 09/05/2024 22:06:14 09/02/19 25 09/05/2024 TOXAS SURE FLEX 19, UR barbiturates ia Negati ve NG/mL cutoff :200 Not Available [facility] ([facility]) [address] [place] [address], [address], 09/05/2024 22:06:14 09/02/19 25 09/05/2024 TOXAS SURE FLEX 19, UR phencyclidin e ia Negati ve NG/mL cutoff :25 Not Available [facility] ([facility]) [address] [place], [address], 09/05/2024 22:06:14 09/02/19 25 09/05/2024 TOXAS SURE FLEX 19, UR gabapentin ia Negati ve ug/mL cutoff :1.0 Not Available [facility] ([facility]) [address] [place], [address], 09/05/2024 22:06:14 09/02/19 25 09/05/2024 TOXAS SURE FLEX 19, UR anticonvulsa nts Negati ve Not Available [facility] ([facility]) [address] [place], [address], 09/05/2024 22:06:14 09/02/19 25 09/05/2024 TOXAS SURE FLEX 19, UR pregabalin Not Detect ed Not Available [facility] ([facility]) [address] [place], [address], 09/05/2024 22:06:14 09/02/19 25 09/05/2024 TOXAS SURE FLEX 19, UR carisoprodol ia Negati ve NG/mL cutoff :100 Not Available [facility] ([facility]) [address] [place], [address], 09/05/2024 22:06:14 09/02/19 25 09/03/2024 TSH+F REE T4 TSH COMMEN T uIU/m L Test not perfo rmed. No speci men recei jolynn. TESTI NG NOT ON ORIGI NAL REQ. UPLOA D ERROR . Not Available [facility] ([facility]) [address] [place] [address], [address], 09/05/2024 22:06:14 09/02/19 25 09/03/2024 TSH+F REE T4 T4,free(dire ct) TNP Test not perfo rmed Not Available [facility] ([facility]) [address] [facility], [place], [address], 09/05/2024 22:06:14 09/02/19 25 09/03/2024 CBC WITH DIFFE RENTI AL/PL ATELE T WBC COMMEN T x10e3 /uL Test not perfo rmed. No speci men recei jolynn. TESTI NG NOT ON ORIGI NAL REQ. UPLOA D ERROR . Not Available [facility] ([facility]) [address] [facility], [place], [address], 09/05/2024 22:06:15 09/02/19 25 09/03/2024 CBC WITH DIFFE RENTI AL/PL ATELE T RBC TNP Test not perfo rmed Not Available [facility] ([facility]) [address] [place], [address], 09/05/2024 22:06:15 09/02/19 25 09/03/2024 CBC WITH DIFFE RENTI AL/PL ATELE T hemoglobin TNP Test not perfo rmed Not Available [facility] ([facility]) [address] [place], [address], 09/05/2024 22:06:15 09/02/19 25 09/03/2024 CBC WITH DIFFE RENTI AL/PL ATELE T hematocrit TNP Test not perfo rmed Not Available [facility] ([facility]) [address] [place], [address], 09/05/2024 22:06:15 09/02/19 25 09/03/2024 CBC WITH DIFFE RENTI AL/PL ATELE T MCV FIRST AID TRAINER Not Available [facility] ([facility]) [address] [place], [address], 09/05/2024 22:06:15 09/02/19 25 09/03/2024 CBC WITH DIFFE RENTI AL/PL ATELE T MCH FIRST AID TRAINER Not Available [facility] ([facility]) [address] [facility], [place], [address], 09/05/2024 22:06:15 09/02/19 25 09/03/2024 CBC WITH DIFFE RENTI AL/PL ATELE T MCHC FIRST AID TRAINER Not Available [facility] ([facility]) [address] [facility], [place], [address], 09/05/2024 22:06:15 09/02/19 25 09/03/2024 CBC WITH DIFFE RENTI AL/PL ATELE T RDW FIRST AID TRAINER Not Available [facility] ([facility]) [address] [facility], [place], [address], 09/05/2024 22:06:15 09/02/19 25 09/03/2024 CBC WITH DIFFE RENTI AL/PL ATELE T platelets TNP Test not perfo rmed Not Available [facility] ([facility]) [address] [facility], [place], [address], 09/05/2024 22:06:15 09/02/19 25 09/03/2024 CBC WITH DIFFE RENTI AL/PL ATELE T neutrophils TNP Test not perfo rmed Not Available [facility] ([facility]) [address] [facility], [place], [address], 09/05/2024 22:06:15 09/02/19 25 09/03/2024 CBC WITH DIFFE RENTI AL/PL ATELE T lymphs TNP Test not perfo rmed Not Available [facility] ([facility]) [address] [facility], [place], [address], 09/05/2024 22:06:15 09/02/19 25 09/03/2024 CBC WITH DIFFE RENTI AL/PL ATELE T monocytes TNP Test not perfo rmed Not Available [facility] ([facility]) [address] [facility], [place], [address], 09/05/2024 22:06:15 09/02/19 25 09/03/2024 CBC WITH DIFFE RENTI AL/PL ATELE T eos TNP Test not perfo rmed Not Available [facility] ([facility]) [address] [place], [address], 09/05/2024 22:06:15 09/02/19 25 09/03/2024 CBC WITH DIFFE RENTI AL/PL ATELE T basos FIRST AID TRAINER Not Available [facility] ([facility]) [address] [place], [address], 09/05/2024 22:06:15 09/02/19 25 09/03/2024 CBC WITH DIFFE RENTI AL/PL ATELE T immature cells FIRST AID TRAINER Not Available [facility] ([facility]) [address] [place], [address], 09/05/2024 22:06:15 09/02/19 25 09/03/2024 CBC WITH DIFFE RENTI AL/PL ATELE T neutrophils (absolute) FIRST AID TRAINER Not Available [facility] ([facility]) [address] [place], [address], 09/05/2024 22:06:15 09/02/19 25 09/03/2024 CBC WITH DIFFE RENTI AL/PL ATELE T lymphs (absolute) TNP Test not perfo rmed Not Available [facility] ([facility]) [address] [place], [address], 09/05/2024 22:06:15 09/02/19 25 09/03/2024 CBC WITH DIFFE RENTI AL/PL ATELE T monocytes(ab solute) FIRST AID TRAINER Not Available [facility] ([facility]) [address] [place], [address], 09/05/2024 22:06:15 09/02/19 25 09/03/2024 CBC WITH DIFFE RENTI AL/PL ATELE T eos (absolute) TNP Test not perfo rmed Not Available [facility] ([facility]) [address] [facility], [place], [address], 09/05/2024 22:06:15 09/02/19 25 09/03/2024 CBC WITH DIFFE RENTI AL/PL ATELE T baso (absolute) TNP Test not perfo rmed Not Available [facility] ([facility]) [address] [facility], [place], [address], 09/05/2024 22:06:15 09/02/19 25 09/03/2024 CBC WITH DIFFE RENTI AL/PL ATELE T immature granulocytes FIRST AID TRAINER Not Available [facility]) [address] [facility], [place], [address], 09/05/2024 22:06:15 09/02/19 25 09/03/2024 CBC WITH DIFFE RENTI AL/PL ATELE T immature grans (abs) FIRST AID TRAINER Not Available [facility] ([facility]) [address] [facility], [place], [address], 09/05/2024 22:06:15 09/02/19 25 09/03/2024 CBC WITH DIFFE RENTI AL/PL ATELE T NRBC FIRST AID TRAINER Not Available [facility] ([facility]) [address] [facility], [place], [address], 09/05/2024 22:06:15 09/02/19 25 09/03/2024 CBC WITH DIFFE RENTI AL/PL ATELE T hematology comments: FIRST AID TRAINER Not Available [facility] ([facility]) [address] [facility], [place], [address], 09/05/2024 22:06:15 09/02/19 25 09/03/2024 COMP. METAB OLIC PANEL (14) glucose COMMEN T mg/dL Test not perfo rmed. No speci men recei jolynn. TESTI NG NOT ON ORIGI NAL REQ. UPLOA D ERROR . Not Available [facility] ([facility]) [address] [facility], [place], [address], 09/05/2024 22:06:15 09/02/19 25 09/03/2024 COMP. METAB OLIC PANEL (14) BUN TNP Test not perfo rmed Not Available [facility] ([facility]) [address] [facility], [place], [address], 09/05/2024 22:06:15 09/02/19 25 09/03/2024 COMP. METAB OLIC PANEL (14) creatinine TNP Test not perfo rmed Not Available [facility] ([facility]) [address] [facility], [place], [address], 09/05/2024 22:06:15 09/02/19 25 09/03/2024 COMP. METAB OLIC PANEL (14) eGFR FIRST AID TRAINER Not Available [facility] ([facility]) [address] [facility], [place], [address], 09/05/2024 22:06:15 09/02/19 25 09/03/2024 COMP. METAB OLIC PANEL (14) BUN/creatini ne ratio FIRST AID TRAINER Not Available [facility] ([facility]) [address] [facility], [place], [address], 09/05/2024 22:06:15 09/02/19 25 09/03/2024 COMP. METAB OLIC PANEL (14) sodium TNP Test not perfo rmed Not Available [facility] ([facility]) [address] [facility], [place], [address], 09/05/2024 22:06:15 09/02/19 25 09/03/2024 COMP. METAB OLIC PANEL (14) potassium TNP Test not perfo rmed Not Available [facility] ([facility]) [address] [facility], [place], [address], 09/05/2024 22:06:15 09/02/19 25 09/03/2024 COMP. METAB OLIC PANEL (14) chloride TNP Test not perfo rmed Not Available [facility] ([facility]) [address], [place], [address], 09/05/2024 22:06:15 09/02/19 25 09/03/2024 COMP. METAB OLIC PANEL (14) carbon dioxide, total TNP Test not perfo rmed Not Available [facility] ([facility]) [address], [place], [address], 09/05/2024 22:06:15 09/02/19 25 09/03/2024 COMP. METAB OLIC PANEL (14) calcium TNP Test not perfo rmed Not Available [facility] ([facility]) [address] [facility], [place], [address], 09/05/2024 22:06:15 09/02/19 25 09/03/2024 COMP. METAB OLIC PANEL (14) protein, total TNP Test not perfo rmed Not Available [facility] ([facility]) [address], [place], [address], 09/05/2024 22:06:15 09/02/19 25 09/03/2024 COMP. METAB OLIC PANEL (14) albumin TNP Test not perfo rmed Not Available [facility] ([facility]) [address] [facility], [place], [address], 09/05/2024 22:06:15 09/02/19 25 09/03/2024 COMP. METAB OLIC PANEL (14) globulin, total FIRST AID TRAINER Not Available [facility] ([facility]) [address] [facility], [place], [address], 09/05/2024 22:06:15 09/02/19 25 09/03/2024 COMP. METAB OLIC PANEL (14) A/G ratio FIRST AID TRAINER Not Available [facility] ([facility]) [address], [place], [address], 09/05/2024 22:06:15 09/02/19 25 09/03/2024 COMP. METAB OLIC PANEL (14) bilirubin, total TNP Test not perfo rmed Not Available [facility] ([facility]) [address] [place], [address], 09/05/2024 22:06:15 09/02/19 25 09/03/2024 COMP. METAB OLIC PANEL (14) alkaline phosphatase TNP Test not perfo rmed Not Available [facility] ([facility]) [address] [place], [address], 09/05/2024 22:06:15 09/02/19 25 09/03/2024 COMP. METAB OLIC PANEL (14) AST (SGOT) TNP Test not perfo rmed Not Available [facility] ([facility]) [address] [place], [address], 09/05/2024 22:06:15 09/02/19 25 09/03/2024 COMP. METAB OLIC PANEL (14) ALT (SGPT) TNP Test not perfo rmed Not Available [facility] ([facility]) [address] [place], [address], 09/05/2024 22:06:15 09/02/19 25 09/03/2024 LIPID PANEL WITH LDL/H DL RATIO cholesterol, total COMMEN T mg/dL Test not perfo rmed. No speci men recei jolynn. TESTI NG NOT ON ORIGI NAL REQ. UPLOA D ERROR . Not Available [facility] ([facility]) [address] [place], [address], 09/05/2024 22:06:15 09/02/19 25 09/03/2024 LIPID PANEL WITH LDL/H DL RATIO triglyceride s TNP Test not perfo rmed Not Available [facility] ([facility]) [address] [place], [address], 09/05/2024 22:06:15 09/02/19 25 09/03/2024 LIPID PANEL WITH LDL/H DL RATIO HDL cholesterol TNP Test not perfo rmed Not Available [facility] ([facility]) [address] [facility], [place], [address], 09/05/2024 22:06:15 09/02/19 25 09/03/2024 LIPID PANEL WITH LDL/H DL RATIO VLDL cholesterol marlena COMMEN T mg/dL Unabl e to calcu late resul t since non-n umeri c resul t obtai aj for compo nent test. Not Available [facility] ([facility]) [address] [facility], [place], [address], 09/05/2024 22:06:15 09/02/19 25 09/03/2024 LIPID PANEL WITH LDL/H DL RATIO LDL chol calc ([facility]) FIRST AID TRAINER Not Available [facility] ([facility]) [address] [facility], [place], [address], 09/05/2024 22:06:15 09/02/19 25 09/03/2024 LIPID PANEL WITH LDL/H DL RATIO LDL calc comment: FIRST AID TRAINER Not Available [facility] ([facility]) [address] [facility], [place], [address], 09/05/2024 22:06:15 09/02/19 25 09/03/2024 LIPID PANEL WITH LDL/H DL RATIO LDL/HDL ratio FIRST AID TRAINER Not Available [facility] ([facility]) [address] [place], [address], 09/05/2024 22:06:15 09/02/19 25 09/03/2024 VITAM IN B12 AND FOLAT E vitamin B12 COMMEN T pg/mL Test not perfo rmed. No speci men recei jolynn. TESTI NG NOT ON ORIGI NAL REQ. UPLOA D ERROR . Not Available [facility] ([facility]) [address] [place], [address], 09/05/2024 22:06:16 09/02/19 25 09/03/2024 VITAM IN B12 AND FOLAT E folate (folic acid), serum TNP Test not perfo rmed Not Available [facility] ([facility]) [address] [facility], [place], [address], 09/05/2024 22:06:16 09/02/19 25 09/03/2024 HCV ANTIB PAULA RFX TO QUANT PCR HCV Ab COMMEN T Test not perfo rmed. No speci men recei jolynn. TESTI NG NOT ON ORIGI NAL REQ. UPLOA D ERROR . Not Available [facility] ([facility]) [address] [place], [address], 09/05/2024 22:06:16 09/02/19 25 09/05/2024 JADE CHOU DS, MS, UR RFX cannabinoids +POSIT JOCE+ Not Available [facility] ([facility]) [address] [place], [address], 09/05/2024 22:06:17 09/02/19 25 09/05/2024 PHILLJuan Daniel [...] other canna binoi ds. Not Available [facility] ([facility]) [address] [place], [address], 09/05/2024 22:06:17 09/02/19 25 09/03/2024 VITAM IN [...] um and D. Priya gallegos [place]: [facility] . 2. Linda booker MF, Scooby wheeler [place], [place] off-F errar i BARLOW, et al. Evalu ation , treat ment, and preve ntion of vitam in D defic iency : an Endoc rine Socie ty clini marlena pract ice guide line. JCEM. 2010; 96(7) :1911 -30. Not Available [facility] ([facility]) [address] [facility], [place], [address], 09/05/2024 22:06:17 09/02/19 25 09/03/2024 HIV AB/P2 4 AG WITH REFLE X HIV Ab/P24 Ag screen COMMEN T Test not perfo rmed. No speci men recei jolynn. TESTI NG NOT ON ORIGI NAL REQ. UPLOA D ERROR . Not Available [facility] ([facility]) [address] [facility], [place], [address], 09/05/2024 22:06:17 09/02/19 25 09/03/2024 SPECI MEN STATU S REPOR T specimen status report COMMEN T Test not perfo rmed. No speci men recei jolynn. TEST: 51628 6 TSH+F ree T4 99494 9 CBC With Diffe renti al/Pl atele t 77679 0 Comp. Metab olic Panel (14) 43606 0 Lipid Panel With LDL/H DL Ratio 64922 0 Vitam in B12 and Folat e 67446 0 HCV Antib paula RFX to Quant PCR 87232 0 Vitam in D, 25-Hy droxy 84256 5 HIV Ab/p2 4 Ag with Refle x TESTI NG NOT ON ORIGI NAL REQ. UPLOA D ERROR . Not Available [facility] ([facility]) [address], [place], [address], 09/05/2024 22:06:18 09/02/19 25 09/02/2024 HbA1c (hemo globi n A1c), blood HbA1c 5.5 Not Available [facility] [address] [facility], [place], [address], 09/02/2024 11:52:36 07/22/20 24 07/15/2024 MAMMO , scree georgina, bilat eral No observ ation record ed. [facility] (Scheduling) [address], [place], [address], 07/22/2024 10:29:59 09/02/19 25 09/02/2024 elect bo ferreira am No observ ation record ed. [facility] (Scheduling) [address], [place], [address], 09/02/2024 15:16:53 Result Notes None recorded. Problems Name Problem SNOMED Code Status Onset Date Resolution Date Notes Provider Name and Address Organization Details Recorded Time Herpes simplex 58267535 Active 2023 SHON Sniclair [address] [place] [address], [phone] 8, [facility] [employer] 10:56:48 Deficiency of vitamin D2 262480950 Active 2023 SHON Sinclair [address] [place] [address], [phone] 8, [facility] [employer] 10:56:41 Depressive disorder 29357715 Active 2023 SHON Sinclair [address] [place] [address], 99216-997 8, [employer] 4 10:56:43 Allergic rhinitis 65306529 Active 2023 SHON Sinclair [address] [place] [address], 95698-995 8, [employer] 4 10:56:32 Restless legs 59784406 Active 2023 SHON Sinclair [address] [place] [address], 21323-247 8, [employer] 4 10:56:57 Urinary incontinenc e 028047611 Active 2023 SHON Sinclair [address] [place] [address], 88562-684 8, [employer] 4 10:56:54 Hyperlipide nahum 36653767 Active 2023 SHON Sinclair [address] [place] [address], 09047-705 8, [employer] 4 10:57:00 Spasm 55052958 Active 2023 SHON Sinclair [address] [place] [address], 88087-935 8, [employer] 4 15:06:09 Gastroesoph ageal reflux disease 610216869 Active 2023 SHON Sinclair [address] [place] [address], 15692-070 8, [employer] 4 10:56:46 Insomnia 131775465 Active 2023 SHON Sinclair [address] [place] [address], 52068-158 8, [employer] 4 10:56:56 Vitamin D deficiency 25558252 Active 2023 SHON Sinclair [address] [place] [address], 38971-537 8, [employer] 4 10:56:52 Spasm of back muscles 326527932 Active 2023 SHON Sinclair [address] [place] [address], 68800-115 8, [employer] 4 10:57:03 Essential hypertensio n 05466625 Active 2024 Radha Rene NP [address] [place] [address], 64295-855 8, [employer] 5 11:52:00 Fatigue 23630555 Active 2024 Radha Rene NP [address] [place] [address], 16107-584 8, [employer] 5 11:52:45 Pain of right shoulder joint 6388740029334 9100 Active 2024 Radha Rene NP [address] [place] [address], 63589-254 8, [employer] 5 11:56:35 Pain of right wrist 4623819227663 00 Active 2024 Radha Rene NP [address] [place] [address], 53404-120 8, [employer] 5 12:27:42 Overactive urinary bladder 006450418 Active 2024 Radha Rene NP [address] [place] [address], 45311-562 8, [employer] 5 17:34:47 Abdominal pain 25942144 Active 2024 Radha Rene NP [address] [place] [address], 57264-408 8, [employer] 5 17:37:17 Problem Notes None recorded. Procedures Surgical History Date Name Laterality Status Provider Name and Address Organization Details Recorded Time 07/15/20 24 Most Recent Mammogram completed [employer] 10/29/2024 16:29:55 09/21/18 97 Hysterectomy completed P[facility]rez [place] [employer] 09/05/2024 15:37:25 Angioplasty completed [facility] [employer] [facility] [email or web address] 06/03/2024 14:42:28 Breast Biopsy completed [facility] Roberto Carlos [email or web address] 06/03/2024 14:42:28 Colposcopy completed [employer] [facility] [employer] 06/03/2024 14:42:28 Joint Replacement completed [employer] Roberto Carlos [email or web address] 06/03/2024 14:42:28 Orthopedic Surgery completed [employer] 06/03/2024 14:42:29 Gallbladder Surgery completed [employer] 06/03/2024 14:42:29 Endometrial Biopsy completed [employer] Roberto Acrlos [email or web address] 06/03/2024 14:42:29 Total Hysterectomy completed [employer]. 06/03/2024 14:42:29 Imaging Results None recorded. Procedure Notes None recorded. Medical Equipment None Reported. Allergies Allergen ID Allergen Name Allergen Category Reaction Reaction Severity Criticality Documentation Date Start Date Code Code System Note Provider Name and Address Organization Details Recorded Time 14298 codeine medicatio n Not available Not available Not available 06/03/2024 2670 RxNorm [email or web address] Roberto Carlos [email or web address] 14:43:16 Medications Name Sig Start Date [...] Not Available Not Available Not Aveliza moreno [facility] COVID-19 Antigen Rapid Home Test kit 06/03 [...] Last Updated DateTime 160.02 cm 26.3 kg/m2 77108.7 7 g 97.8 [degF] 92 /min 96 % 96 % 148/106 mm[Hg] 151/105 mm[Hg] 156/108 mm[Hg] 159/100 mm[Hg] 147/91 mm[Hg] [employer] 12:39:30 Date Recorded Systolic And Diastolic Provider Name and Address Organization Details Last Updated DateTime 09/16/2024 142/98 mm[Hg] Barbara [facility] [employer] 09/16/2024 12:24:33 Date Recorded Body height Body mass index (BMI) Body weight Body temperature Heart rate Oxygen saturation Oxygen saturation in Arterial blood by Pulse oximetry Systolic And Diastolic Systolic And Diastolic Provider Name and Address Organization Details Last Updated DateTime 5 160.02 cm 25.9 kg/m2 72607.4 9 g 98.5 [degF] 88 /min 97 % 97 % 144/100 mm[Hg] 135/95 mm[Hg] [employer] 5 12:11:57 Date Recorded Body height Body mass index (BMI) Body weight Body temperature Heart rate Oxygen saturation Oxygen saturation in Arterial blood by Pulse oximetry Systolic And Diastolic Provider Name and Address Organization Details Last Updated DateTime 5 160.02 cm 25.4 kg/m2 86915.8 1 g 98.4 [degF] 96 /min 99 % 99 % 109/76 mm[Hg] [employer] 5 16:52:16 Date Recorded Body height Body mass index (BMI) Body weight Body temperature Heart rate Oxygen saturation Oxygen saturation in Arterial blood by Pulse oximetry Systolic And Diastolic Provider Name and Address Organization Details Last Updated DateTime 5 160.02 cm 25.7 kg/m2 45193.5 9 g 98.6 [degF] 101 /min 95 % 95 % 132/85 mm[Hg] Marry Khan [employer] 5 17:05:06 Date Recorded Body weight Body mass index (BMI) Body height Oxygen saturation Oxygen saturation in Arterial blood by Pulse oximetry Heart rate Body temperature Systolic And Diastolic Systolic And Diastolic Systolic And Diastolic Provider Name and Address Organization Details Last Updated DateTime 4 34313.8 9 g 25.7 kg/m2 160.02 cm 96 % 96 % 90 /min 98.4 [degF] 137/94 mm[Hg] 132/92 mm[Hg] 132/90 mm[Hg] Barbara [employer]. 4 14:54:32 Social History Question Answer Notes LastModified by Organizat ion Details LastModified Time Tobacco Smoking Status Former Smoker Barbara [employer] 06/03/2024 14:42:28 Do You Have An Advance [...] Information not available 06/03/2024 What Type Of Recreational Therapist Do You Use? None Information not available [...] Or The Highest Degree You Have Received? [id number] Information not available 06/03/2024 Have There Been Any Changes To Your Family Or Social Situation? Yes Information no t available 06/03/2024 When Did You Quit Smoking? 16+yearssincelast cigarette Information not available 06/03/2024 Are There Any Guns Present In Your Home? No Information not available 06/03/2024 Which Of Your Hands Is Dominant? Left Information not available 06/03/2024 Do You Have A Medical Power Of Farm Machinery Assembler? No Information not available 06/03/2024 What Was [...] anxious, or unable to sleep at night)? [id number] Information not available 06/03/2024 Do you have [...] History Condition Response Coronary Artery Disease N Other N Gout N Blood Diseases N Kidney Stones N Hyperthyroidism N Blood Transfusion N Breast Cancer N Emergency room visit since last appointm ent. N Lung Disease N COPD N Depression Y Dermatologic Disorders N Hypothyroidism N Defects or Inherited Disease N Developmental or Behavioral Disorders N Breast Problem N Difficulty Swallowing N Anesthesia Complications N History of STI N Meniere's disease N Anxiety Disorder N Muscle, Joint, or Bone Problems N Autoimmune disease N Vision or Eye Problems N Arthritis N Polyps N Infertility N Mental Disorder N Congenital Anomalies N Acid Reflux (GERD) Y Cancer Y Stroke N Neurologic/Epilepsy N Endometriosis N Bladder or Kidney Problems Y High Cholesterol N Liver Disease N Psychiatric/Mental Health Condition N Organ Transplant N Dialysis N Schizophrenia N Fibromyalgia Y Headaches Y Kidney Disease N Allergies/Hayfever N Heart Problems [...] Recorded Time Tdap 2 completed SHON Sinclair [address] [place] [address], [address], [employer] 06/03/2024 14:54:36 Tdap 1 completed Pérez Susan null, [employer] 09/02/2024 11:12:25 Influenza, split virus, trivalent, preservative 7 completed P[facility]rez [place] null, [employer] 09/02/2024 11:12:25 Influenza, split virus, trivalent, preservative 8 completed Pérez Susan null, [employer] 09/02/2024 11:12:25 Influenza, split virus, trivalent, PF 8 completed P[facility]rez [place] null, [employer] 09/02/2024 11:12:25 Td (adult), 2 Lf tetanus toxoid, preservative free, adsorbed 2 completed Pérez Susan null, [employer] 09/02/2024 11:12:25 Influenza, split virus, quadrivalent, PF 7 completed P[facility]rez [place] null, [employer] 09/02/2024 11:12:25 Influenza, split virus, quadrivalent, PF 1 completed Pérez Susan null, [employer] 09/02/2024 11:12:25 Influenza, split virus, quadrivalent, PF 8 completed P[facility]rez [place] null, [employer] 09/02/2024 11:12:25 Influenza, split virus, quadrivalent, PF 2 completed P[facility]rez [place] null, [employer] 09/02/2024 11:12:25 Influenza, split virus, quadrivalent, PF 3 completed Pérez Susan null, [employer] 09/02/2024 11:12:25 Influenza, split virus, quadrivalent, PF 0 completed Pérez Susan null, [employer] 09/02/2024 11:12:25 Influenza, split virus, quadrivalent, PF 9 completed Pérez Susan null, [employer] 09/02/2024 11:12:25 Past Encounters Encounter ID Performer Location Encounter Start Date Encounter Closed Date Diagnosis/Indication Diagnosis SNOMED-CT Code Diagnosis ICD10 Code Diagnosis Note [id number] SHON Sinclair [facility] [address] [place] [address] [id number] 2 06/03/2024 14:27:57 06/03/2024 15:11:43 Nasal congestion 11864145 R09.81 Herpes simplex 57374285 B00.9 Cope's esophagus 3029 90988 K22.70 Idiopathic avascular necrosis of bone 3136271716 M87.08 Deficiency of vitamin D2 752925820 E55.9 Depressive disorder 3548 9007 F32.A Allergic rhinitis 646957 04 J30.9 Restless legs 53865644 G 25.81 Urinary incontinence 165 328096 R32 Gastroesop hageal reflux disease 198835517 K21.00 Hyperlipidemia 62689870 E78.5 Insomnia 083406009 G47.0 0 Spasm 47465179 R25.2 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 Z85.6 Screening mammography 24 093472 Z12.31 [id number] Radha Rene NP [facility] [address] [place] [address] [id number] 2 09/02/2024 10:39:34 09/02/2024 12:44:05 Hyperlipidemia 02102462 E78.5 Gastroesop hageal reflux disease 136358707 K21.00 History of non-Hodgkins lymphoma 576298630 Z85.72 History of acute lymphoid leukemia 6620598760 70938491 Z85.6 Essential hypertension 28931484 I10 Adult heal th examination 359097437 Z00.00 Fatigue 38630061 R53.83 Vitamin D deficiency 347 76785 E55.9 Viral screening 35284050 4 Z11.59 Long-term drug therapy 309071982 Z79.891 Pain of ri ght shoulder joint 7764847724 2487908 M25.511 Pain of right wrist 3169 984423 77003 M25.914 [id number] Radha Rene NP [facility] [address] [place] [address] [id number] 2 09/16/2024 11:31:23 09/16/2024 14:01:16 Insomnia 124895214 G47.00 Essential hypertension 26943929 I10 Patient to keep bp log and f/u in 2 weeks [id number] Radha Rene NP [facility] [address] [place] [address] [id number] 2 10/02/2024 16:46:53 10/02/2024 17:58:06 Insomnia 291195060 G47.00 Spasm of back muscles 20 3057330 M62.830 Overactive urinary bladder 996117153 N32.81 Restless legs 80547657 G 25.81 Depressive disorder 3548 9007 F32.A [id number] SHON Sinclair [facility] [address] [place] [address] [id number] 2 10/29/2024 16:55:45 10/29/2024 17:31:07 Gastroesophageal reflux disease 891703599 K21.00 Insomnia 128920916 G47.0 0 Essential hypertension 25405555 I10 Health Concerns Section Related Observation LastModified by Organization Detai ls LastModified Time None Recorded Concern Status LastModified by Organization Details LastModified Time None Recorded Advance Directives Directive N: Payers Insurance Date Sequence Insurance Name Policy Number Policy Raman Covered Member ID Raman Member ID Guarantor Name 10/29/2024 1 [employer] [place] (MEDICAID HMO) Iliana Hernandez [id number] Iliana Hernandez Notes Date Note Type Note [...] working like it once did. SHON Sinclair [address] [place] [address], [phone], [employer]. 06/03/2024 15:40:24 09/02/2024 text/html Patient presente d to clinic today to establish care. Patient reports that she sees Dr. Gtz for urology at [facility]. Patient reports she had a Total Hysterectomy in 1996 in [facility] secondary to endometriosis. Patient reports that she was seen at [facility] for Non hodgkins lymphoma at age 14, and was dx with ALL at 26 and reports that [facility] continued to see her. Patient states that [...] by cardiology for echos, but states seen engraver wood at [facility] who discharged her. Patient states that she [...] reports she had Colonoscopy last year at [facility] and was normal. Patient states she used to take lisinopril but states her bp got better and she did not like the lisinopril so stopped taking it. Patient reports is up to date on her Mammogram and had it done this past year. Patient has no additional complaints or concerns today. Radha Rene NP [address] [place], [address], [employer] 09/02/2024 14:17:17 09/16/2024 text/html Patient presente [...] it worked well. Radha Rene NP [address] [place], [address], [employer] 09/16/2024 15:11:09 10/02/2024 text/html Presented to [...] Patient states that she did see her engraver wood last week and states was told to f/u in 1 year. Patient reports that her bp has been doing well and systolic has been running 130s and diastolic in 70s at home. Patient has no further complaints or concerns for today's visit. Radha Rene NP [address] [place], [address], [employer] 10/02/2024 17:55:06 10/29/2024 text/html Patient presents for followup. History of GERD, HTN, insomnia. 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 She is stiff and sore today. She fell last week when she stood up and her foot had fallen asleep. SHON Sinclair [address] [place] [address], [phone], [facility] [email or web address], [facility]. 10/29/2024 17:47:19 OBGyn Episode No OBEpisode recorded.
== END 2025-02-03 23:59 | disposition home or self-care (01) ==
LOC: LAB.DROPOF 02-04 13:08
PROVIDERS: PCP Urology; Visit Provider Urology
DX: N39.3 Stress incontinence (female) (male) (principal); R31.9 Hematuria, unspecified
CPT/HCPCS: 81001; 87077; 87086

== ENCOUNTER 2025-02-06 10:47 | Outpatient (CLI) | payer MEDICAID, SELFPAY ==
--- NOTE | 2025-02-06 10:00 | US_ITS ---
FINAL REPORT TECHNIQUE: Ultrasound of the bladder was performed pre and post void. CLINICAL HISTORY: cyst COMPARISON: 12/07/2023 FINDINGS: BLADDER ULTRASOUND: Ultrasound examination of the bladder reveals a prevoid bladder volume of 159.6 cc. No focal mass is identified. The postvoid volume is 17 cc, which is normal. No bladder wall thickening is identified. IMPRESSION: Unremarkable pre and postvoid ultrasound of the bladder. Reviewed, Interpreted and Dictated by Micaela Spencer MD Transcribed by Mila Weiner Authenticated and [facility]
--- NOTE | 2025-02-06 10:30 | CT_ITS ---
FINAL REPORT TECHNIQUE: Axial CT of the abdomen and pelvis, without and with IV contrast. This study was performed with techniques to keep radiation doses as low as reasonably achievable, (ALARA). Individualized dose reduction techniques using automated exposure control or adjustment of mA and/or kV according to the patient' size were employed. CLINICAL HISTORY: renal cyst COMPARISON: 06/10/2024 FINDINGS: CT ABDOMEN PELVIS WITH AND WITHOUT CONTRAST: Abdomen: The right lower lobe well-circumscribed pulmonary lesion seen on the prior exam has a similar appearance and measures 20 mm on the current exam, was previously 19 mm, not significantly changed. Liver has an unremarkable CT appearance. The gallbladder is surgically absent. The spleen, pancreas and adrenal glands are unremarkable. Precontrast imaging shows no renal stone disease. Postcontrast imaging of the kidneys demonstrates at least 3 and probably 4 subcentimeter hypodense lesions in the upper pole of the left kidney, measuring up to 4 mm in size, likely cysts, and stable in appearance. The right kidney is unremarkable in appearance. No bowel obstruction or fluid collection is seen. Pelvis: The appendix is normal in appearance. Pelvic bowel loops are unremarkable. No fluid collection or adenopathy is seen. IMPRESSION: 1. Stable subcentimeter left renal lesions, likely cysts. If continued imaging is desired recommend 1 year follow-up examination. 2. The well-circumscribed lesion in the right lower lobe of the lung is not significantly changed in appearance. This can be followed up at the time of renal lesion follow-up. Reviewed, Interpreted and Dictated by Micaela Spencer MD Transcribed by Mila Weiner Authenticated and [facility]
--- OUTSIDE RECORDS SUMMARY | 2025-02-06 10:50 | XMS_ITS | Clinical Summary ---
Author Organization [facility] Address [address] [place] [address] Care Team Providers Care Web Development Consultant Name Role Phone Henrry Salazarie Joan MENENDEZ Primary Care Provider [phone] Allergies Active Allergy Reactions Criticality Noted Date [...] spray 50 sprays. 05/07/2020 Active HYDROcodone-acet aminophen ([place]) 7.5-325 MG tablet Take 1 tablet by [...] 2021 UKY-Zoster Vaccines (1 of 2) 2021 [id number] Vaccine (1 - season) 2024 UKY-Influenza Vaccine [...] patient's age to complete this topic Insurance [facility] MEDICAID Care Teams Web Development Consultant Relationship Specialty Start Date End Date Rianna Salazar PA [address] [place] [address] [facility] - General 12/24/20
--- OUTSIDE RECORDS SUMMARY | 2025-02-06 10:51 | XMS_ITS | Data Portability ---
Author Organization [facility] & GERALD Neumann ADMIN Address [address] [place] [id number] Care Team Providers Care Housemaid Name Role Phone CAMILLESara JIN Primary Care Provider Assessment No assessment recorded. Plan of Treatment Reminders Order Date Submit Date Provider Last Modified By Organization Details Last Modified Time Details Appointments None recorded. Lab TSH, serum or plasma 2023 [facility] (Laboratory), [address] [place], [address], 14:09:59 CBC w/ auto diff 2023 [facility] (Laboratory), [address] [place], [address], 4 13:06:30 CMP, serum or plasma 2023 [facility] (Laboratory), [address] [place], [address], 4 14:09:56 lipid panel, serum 2023 [facility] (Laboratory), [address] [place], [address], 4 14:09:54 vitamin D, 25-hydroxy, total, serum [address] (Laboratory), [address] [place], [address], 4 11:40:39 vitamin B12 + folate, serum or blood [address] (Laboratory), [address], [address], 4 11:40:01 hemoglobin A1c + average glucose, QN, blood [address] (Laboratory), [address], [address], 4 11:41:33 Referral pain management referral 2023 theo Mayers DO, [address] [facility], [address], [place], [address], 4 08:02:02 orthopedic surgeon referral 2023 theo Howard MD, [address] [facility], [address], [place], [address], 5 07:20:25 physical therapist referral 2023 [facility], [address] [place], [address], 4 07:30:24 Procedures None recorded. Surgeries None recorded. Imaging MAMMO, screening, digital, bilateral 2023 [email or web address] [facility] (Scheduling), [address], [place], [address], 4 09:55:48 XR, hip, bilateral, 3 or 4 view 2023 [facility] (Scheduling), [address], [place], [address], 4 07:27:05 XR, hip + pelvis, bilateral 2023 [facility] (Scheduling), [address], [place], [address], 10:34:29 Medication Orders None recorded. Patient TargetsNo targets recorded. Patient InstructionsNo instructions recorded. Reason for Referral Orthopedic Surgeon Referral for Osteonecrosis of bilateral hips Referring Physician: Jin Rosas [facility], Encounter Date: 05/02/2024 Physical Therapist Referral for Osteonecrosis of bilateral hips Referring Physician: Jin Rosas [facility], Encounter Date: 05/02/2024 Pain Management Referral for Chronic pain syndrome Referring Physician: Jin Rosas [facility], Encounter Date: 05/02/2024 Results Created Date Observation Date Name Description Value Unit Range Abnormal Flag Note LastModifiedBy Organization Detail LastModifiedTime 05/02/2005/02/2024 CBC AUTO W DIFF WBC 7.2 10 4.5-11 .5 Not Available [facility] (Lab Registration) [address], [place], [address], 05/02/2024 13:06:30 05/02/20 24 05/02/2024 CBC AUTO W DIFF RBC 4.20 10 4.25-5 .57 low Not Available [facility] (Lab Registration) [address], [place], [address], 05/02/2024 13:06:30 05/02/20 24 05/02/2024 CBC AUTO W DIFF HGB 12.8 g/dL 12.0-1 5.7 Not Available [facility] (Lab Registration) [address] [place], [address], 05/02/2024 13:06:30 05/02/20 24 05/02/2024 CBC AUTO W DIFF HCT 39.0 % 36.0-4 7.0 Not Available [facility] (Lab Registration) [address] [place], [address], 05/02/2024 13:06:30 05/02/20 24 05/02/2024 CBC AUTO W DIFF MCV 92.9 fL 80-95 Not Available [facility] (Lab Registration) [address] [place], [address], 05/02/2024 13:06:30 05/02/20 24 05/02/2024 CBC AUTO W DIFF MCH 30.5 pg 27.0-3 4.0 Not Available [facility] (Lab Registration) [address] [place], [address], 05/02/2024 13:06:30 05/02/20 24 05/02/2024 CBC AUTO W DIFF MCHC 32.8 g/dL 32.0-3 6.0 Not Available [facility] (Lab Registration) [address] [place], [address], 05/02/2024 13:06:30 05/02/20 24 05/02/2024 CBC AUTO W DIFF platelet count 262 10 150-45 0 Not Available [facility] (Lab Registration) [address] [place], [address], 05/02/2024 13:06:30 05/02/20 24 05/02/2024 CBC AUTO W DIFF RDW 12.8 % 12.3-1 5.1 Not Available [facility] (Lab Registration) [address] [place], [address], 05/02/2024 13:06:30 05/02/20 24 05/02/2024 CBC AUTO W DIFF MPV 9.2 fL 7.4-10 .4 Not Available [facility] (Lab Registration) [address] [place], [address], 05/02/2024 13:06:30 05/02/20 24 05/02/2024 CBC AUTO W DIFF granulocyte% 75.5 % 40-75 high Not Available [facility] (Lab Registration) [address] [place], [address], 05/02/2024 13:06:30 05/02/20 24 05/02/2024 CBC AUTO W DIFF lymphocyte% 13.1 % 15-57 low Not Available [facility] (Lab Registration) [address], [place], [address], 05/02/2024 13:06:30 05/02/20 24 05/02/2024 CBC AUTO W DIFF monocyte% 5.4 % 4.0-12 .0 Not Available [facility] (Lab Registration) [address], [place], [address], 05/02/2024 13:06:30 05/02/20 24 05/02/2024 CBC AUTO W DIFF eosinophil% 5.0 % 0.0-4. 0 high Not Available [facility] (Lab Registration) [address] [place], [address], 05/02/2024 13:06:30 05/02/20 24 05/02/2024 CBC AUTO W DIFF basophil% 0.6 % 0.0-1. 0 Not Available [facility] (Lab Registration) [address] [place], [address], 05/02/2024 13:06:30 05/02/20 24 05/02/2024 CBC AUTO W DIFF immature granulocytes % 0.4 % 0.0-0. 8 Not Available [facility] (Lab Registration) [address] [place], [address], 05/02/2024 13:06:30 05/02/20 24 05/02/2024 CBC AUTO W DIFF granulocyte# 5.42 10 Not Available [facility] (Lab Registration) [address] [place], [address], 05/02/2024 13:06:30 05/02/20 24 05/02/2024 CBC AUTO W DIFF lymphocyte# 0.94 10 Not Available [facility] (Lab Registration) [address] [place], [address], 05/02/2024 13:06:30 05/02/20 24 05/02/2024 CBC AUTO W DIFF monocyte# 0.39 10 Not Available [facility] (Lab Registration) [address] [place], [address], 05/02/2024 13:06:30 05/02/20 24 05/02/2024 CBC AUTO W DIFF eosinophil# 0.36 10 Not Available [facility] (Lab Registration) [address] [place], [address], 05/02/2024 13:06:30 05/02/20 24 05/02/2024 CBC AUTO W DIFF basophil# 0.04 10 Not Available [facility] (Lab Registration) [address] [place], [address], 05/02/2024 13:06:30 05/02/20 24 05/02/2024 CBC AUTO W DIFF immature granulocytes # 0.03 10 Not Available [facility] (Lab Registration) [address] [place], [address], 05/02/2024 13:06:30 05/02/20 24 05/02/2024 CBC AUTO W DIFF manual differential NO Not Available [facility] (Lab Registration) [address] [place], [address], 05/02/2024 13:06:30 05/02/20 24 05/02/2024 CBC AUTO W DIFF note Unles s other forrest noted testi ng perfo rmed at: [facility] [address] [place] [address] [phone] Clifton hooks MD CLIA: [id number] Not Available [facility] (Lab Registration) [address] [place], [address], 05/02/2024 13:06:30 05/02/20 24 05/02/2024 HEMOG LOBIN A1C glycosylated hemoglobin A1C 5.3 % 4.5-6. 2 Not Available [facility] (Lab Registration) [address] [place], [address], 05/02/2024 13:15:20 05/02/20 24 05/02/2024 HEMOG LOBIN A1C estimated average glucose 105 mg/dL 82-131 Not Available [facility] (Lab Registration) [address], [place], [address], 05/02/2024 13:15:20 05/02/20 24 05/02/2024 HEMOG LOBIN A1C note Unles s other forrest noted testi ng perfo rmed at: [facility] [address] [facility] [place] [address] [phone] Clifton hooks MD CLIA: [id number] Not Available [facility] (Lab Registration) [address], [place], [address], 05/02/2024 13:15:20 05/02/20 24 05/02/2024 LIPID PANEL triglyceride 80 mg/dL 20-200 The Natio nal Madisyn stero l Educa tion Progr am (NCEP ) has set the follo wing guide lines for Fasti ng Trigl yceri sue: AMBER L: <150 mg/dL BORDE RLINE HIGH: 150 - 199 mg/dL HIGH: 200 - 499 mg/dL VERY HIGH: > or =500 mg/dL Not Available [facility] (Lab Registration) [address], [place], [address], 05/02/2024 14:09:54 05/02/2005/02/2024 LIPID PANEL cholesterol 167 mg/dL 0-200 The Natio nal Madisyn stero l Educa tion Progr am (NCEP ) has set the follo wing guide lines for Fasti ng Madisyn stero l: KAEL ABLE: <200 mg/dL BORDE RLINE HIGH: 200 - 239 mg/dL HIGH: > or =240 mg/dL Not Available [facility] (Lab Registration) [address], [place], [address], 05/02/2024 14:09:54 05/02/20 24 05/02/2024 LIPID PANEL HDL cholesterol 68 mg/dL 60- The Natio nal Madisyn stero l Educa tion Progr am ([facility] ) has set the follo wing guide lines for Fasti ng HDL Madisyn stero l: LOW HDL: <40 mg/dL AMBER L: 40 - 60 mg/dL KAEL ABLE: >60 mg/dL Not Available [facility] (Lab Registration) [address], [place], [address], 05/02/2024 14:09:54 05/02/20 24 05/02/2024 LIPID PANEL LDL calculated 83 mg/dL 100- low The Natio nal Madisyn stero l Educa tion Progr am ([employer] ) has set the follo wing guide lines for Fasti ng LDL Madisyn stero l: OPTIM AL: < 100 mg/dL LOW RISK: 100 - 129 mg/dL BORDE RLINE HIGH: 130 - 159 mg/dL HIGH: 160 - 189 mg/dL VERY HIGH: > or = 190 mg/dL Not Available [facility] (Lab Registration) [address] [place], [address], 05/02/2024 14:09:54 05/02/20 24 05/02/2024 LIPID PANEL chol/HDL ratio 2 ratio -5 Not Available [facility] (Lab Registration) [address], [place], [address], 05/02/2024 14:09:54 05/02/20 24 05/02/2024 LIPID PANEL note Unles s other forrest noted testi ng perfo rmed at: [facility] [address] [place] [address] [phone] Clifton hooks MD CLIA: [id number] Not Available [facility] (Lab Registration) [address] [place], [address], 05/02/2024 14:09:54 05/02/20 24 05/02/2024 COMP METAB OLIC PANEL sodium 140 mmol/ L 136-14 5 Not Available [facility] (Lab Registration) [address] [place], [address], 05/02/2024 14:09:56 05/02/2005/02/2024 COMP METAB OLIC PANEL potassium 3.9 mmol/ L 3.5-5. 1 Not Available [facility] (Lab Registration) [address] [place], [address], 05/02/2024 14:09:56 05/02/2005/02/2024 COMP METAB OLIC PANEL chloride 105 mmol/ L 98-107 Not Available [facility] (Lab Registration) [address] [place], [address], 05/02/2024 14:09:56 05/02/2005/02/2024 COMP METAB OLIC PANEL carbon dioxide 28 mmol/ L 21-32 Not Available [facility] (Lab Registration) [address] [place], [address], 05/02/2024 14:09:56 05/02/2005/02/2024 COMP METAB OLIC PANEL anion gap 7.0 Not Available [facility] (Lab Registration) [address] [place], [address], 05/02/2024 14:09:56 05/02/2005/02/2024 COMP METAB OLIC PANEL glucose 87 mg/dL 70-110 Not Available [facility] (Lab Registration) [address] [place], [address], 05/02/2024 14:09:56 05/02/2005/02/2024 COMP METAB OLIC PANEL blood urea nitrogen 25 mg/dL 7-18 high Not Available [facility] (Lab Registration) [address] [place], [address], 05/02/2024 14:09:56 05/02/2005/02/2024 COMP METAB OLIC PANEL creatinine 0.7 mg/dL 0.6-1. 0 Not Available [facility] (Lab Registration) [address] [place], [address], 05/02/2024 14:09:56 05/02/20 24 05/02/2024 COMP METAB OLIC PANEL BUN/creatini ne ratio 35.7 ratio 9-21 high Not Available [facility] (Lab Registration) [address], [place], [address], 05/02/2024 14:09:56 05/02/20 24 05/02/2024 COMP METAB [...] ramirez ing kiney funct ion. Not Available [facility] (Lab Registration) [address], [place], [address], 05/02/2024 14:09:56 05/02/2005/02/2024 COMP METAB OLIC PANEL total protein 7.3 g/dL 6.4-8. 2 Not Available [facility] (Lab Registration) [address], [place], [address], 05/02/2024 14:09:56 05/02/20 24 05/02/2024 COMP METAB OLIC PANEL albumin 3.6 g/dL 3.4-5. 0 Not Available [facility] (Lab Registration) [address] [place], [address], 05/02/2024 14:09:56 05/02/2005/02/2024 COMP METAB OLIC PANEL calcium 9.1 mg/dL 8.5-10 .1 Not Available [facility] (Lab Registration) [address], [place], [address], 05/02/2024 14:09:56 05/02/2005/02/2024 COMP METAB OLIC PANEL corrected calcium 9.4 mg/dL 8.5-10 .1 Not Available [facility] (Lab Registration) [address], [place], [address], 05/02/2024 14:09:56 05/02/20 24 05/02/2024 COMP METAB OLIC PANEL bilirubin total 0.2 mg/dL 0.4-1. 5 low Not Available [facility] (Lab Registration) [address], [place], [address], 05/02/2024 14:09:56 05/02/2005/02/2024 COMP METAB OLIC PANEL AST (SGOT) 18 U/L 15-37 Not Available [facility] (Lab Registration) [address] [place], [address], 05/02/2024 14:09:56 05/02/2005/02/2024 COMP METAB OLIC PANEL ALT (SGPT) 17 U/L 12-78 Not Available [facility] (Lab Registration) [address] [place], [address], 05/02/2024 14:09:56 05/02/2005/02/2024 COMP METAB OLIC PANEL alk phosphatase 102 U/L 50-120 Not Available [facility] (Lab Registration) [address], [place], [address], 05/02/2024 14:09:56 05/02/2005/02/2024 COMP METAB OLIC PANEL note Unles s other forrest noted testi ng perfo rmed at: [facility] [address] [facility] [place] [address] [phone] Clifton hooks MD CLIA: [id number] Not Available [facility] (Lab Registration) [address] [place], [address], 05/02/2024 14:09:56 05/02/2005/02/2024 THYRO ID STIMU LATIN G HORMO NE thyroid stimulating hormone 2.59 mIU/m L 0.34-4 .80 Not Available [facility] (Lab Registration) [address], [place], [address], 05/02/2024 14:09:59 05/02/20 24 05/02/2024 THYRO ID STIMU LATIN G HORMO NE note Unles s other forrest noted testi ng perfo rmed at: [facility] [address] [place] [address] [phone] Clifton hooks MD CLIA: [id number] Not Available [facility] (Lab Registration) [address] [place], [address], 05/02/2024 14:09:59 05/02/20 24 05/02/2024 VITAM IN D TOTAL (D2+D 3) vitamin D25 (D2+D3) 34.8 NG/mL 30-100 Not Available [facility] (Lab Registration) [address] [place], [address], 05/02/2024 14:10:01 05/02/2005/02/2024 VITAM IN D TOTAL (D2+D 3) note Unlgutierrez s other forrest noted testi ng perfo rmed at: [facility] [address] [place] [address] [phone] Clifton hooks MD CLIA: [id number] Not Available [facility] (Lab Registration) [address] [place], [address], 05/02/2024 14:10:01 05/02/2005/02/2024 VITAM IN B12 vitamin B12 397 pg/mL 193-98 6 Not Available [facility] (Lab Registration) [address] [place], [address], 05/02/2024 14:10:04 05/02/20 24 05/02/2024 VITAM IN B12 folate (folic acid), serum 5.0 NG/mL 8.6-58 .9 low Not Available [facility] (Lab Registration) [address] [place], [address], 05/02/2024 14:10:04 05/02/20 24 05/02/2024 VITAM IN B12 note Unles s other forrest noted testi ng perfo rmed at: [facility] [address] [place] [address] [phone] Clifton hooks MD CLIA: [id number] Not Available [facility] (Lab Registration) [address] [place], [address], 05/02/2024 14:10:04 05/07/20 24 05/02/2024 pelvi s 1 [facility] [address] [facility] [place] [address] Phone: Fax: Name: ALBER HERNANDEZ Exam Date: 2023 : 1969 Age 53 years Gender : F Access ion: [id number] Physic parvin: BERNA ROSAS NDE Facili ty: [facility] Facili ty HSV: Outpat ient Exam: PELVIS [...] Thank [facility] Legall y authen ticate d by BRANDY Mitchell III, MD 2023-07 12:54: 11 CC'ed Logic: Orderi ng Provid er: SOKAN BABATU NDE CC Provid er: SOKAN BABATU NDE Attend ing Provid er: SOKAN BABATU NDE Referr ing Provid er: SOKAN BABATU NDE Admitt ing Provid er: SOKAN BABATU NDE tpardini [facility] (Radiology) [address] [place], [address], 05/07/2024 16:50:44 Result Notes None recorded. Problems Name Problem SNOMED Code Status Onset Date Resolution Date Notes Provider Name and Address Organization Details Recorded Time Chronic pain syndrome 242332872 Active 2023 Gaby Pardini null, [place] - [facility] - [place] & [place] 4 11:32:21 Urinary incontinence 708198949 Active 2023 Gaby Pard[place] [facility] [place] 11:32:29 Anxiety disorder 848824019 Active 2023 Gaby [place] [facility] [place] 11:32:38 Hyperlipidemia 86503669 Active 2023 Gaby [place] [facility] [place] 4 11:32:45 Vitamin D deficiency 95575553 Active 2023 Gaby [place] [facility] [place] & [place] 4 11:32:54 Restless legs 07098176 Active 2023 Gaby [place] [facility] [place] 11:33:07 Allergic rhinitis 81000207 Active 2023 Gaby [place] [facility] [place] 4 11:33:16 Chronic depression 244011693 Active 2023 Gabymercedez bocanegra, [place] - [facility] & [place] 4 11:33:24 Insomnia 219091694 Active 2023 Gabymercedez bocanegra, [place] - [facility] & [place] 4 11:33:32 Osteoporosis 19897586 Active 2023 Gabymercedez bocanegra, [place] - [facility] & [place] 4 11:33:41 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 Procedures Surgical History Date Name Laterality Status Provider Name and Address Organization Details Recorded Time Gallbladder Surgery completed Gabymercedez MCDONALD [facility] & [place] 05/02/2024 11:35:58 Hip Replacement [facility] & [place] 05/02/2024 11:36:06 Hysterectomy completed Gabymere [facility] & [place] 05/02/2024 11:37:21 Imaging Results None recorded. Procedure Notes None recorded. Medical Equipment None Reported. Allergies Allergen ID Allergen Name Allergen Category Reaction Reaction Severity Criticality Documentation Date Start Date Code Code System Note Provider Name and Address Organization Details Recorded Time 641266 codeine medicatio n Not available Not available Not available 05/03/2024 4550 RxNorm Loren James bocanegra, [place] - [place] [facility] & [place] 11:47:22 Medications Name Sig Start Date Stop [...] propionate 50 mcg/actuati on nasal spray,suspe nsion [place] 1 spray every day by nasal route [...] Not Available Not Available No t Available [facility] COVID-19 Antigen Rapid Home Test kit 05/02 completed Not Available Not Available Not Available Vitals Date Recorded Body height Body mass index (BMI) Body weight Body temperature Oxygen saturation Oxygen saturation in Arterial blood by Pulse oximetry Heart rate Respiratory rate Systolic And Diastolic Provider Name and Address Organization Details Last Updated DateTime 160.02 cm 26.4 kg/m2 76491.5 4 g 97.5 [degF] 97 % 97 % 85 /min 16 /min 124/82 mm[Hg] Gaby De Los Santos [facility] & [place] 11:27:04 Social History Question Answer Notes LastModified by Organizat ion Details LastModified Time Tobacco Smoking Status Never Smoker Gaby De Los Santos [facility] & [place] 05/02/2024 11:35:09 Do You Have An Advance [...] Do You Have A Medical Power Of Plastics Plater? No Information not available 05/02/2024 Do You [...] anxious, or unable to sleep at night)? [id number] Information not available 05/02/2024 Do you have [...] Gaby [place] [facility] [place] 05/02/2024 11:27:20 Influenza, split virus, trivalent, preservative 7 completed Gaby [place] [facility] 05/02/2024 11:27:20 Influenza, split virus, trivalent, preservative 8 completed Gaby [place] 05/02/2024 11:27:20 Influenza, split virus, trivalent, PF 8 completed Gab[place] 05/02/2024 11:27:20 Td (adult), 2 Lf tetanus toxoid, preservative free, adsorbed 2 completed Gaby [place] [facility] [place] 05/02/2024 11:27:20 Influenza, split virus, quadrivalent, PF 7 completed Gaby [place] 05/02/2024 11:27:20 Influenza, split virus, quadrivalent, PF 1 completed Gaby [place] 05/02/2024 11:27:20 Influenza, split virus, quadrivalent, PF 8 completed Gaby [place] 05/02/2024 11:27:20 Influenza, split virus, quadrivalent, PF 2 completed Gaby [place] 05/02/2024 11:27:20 Influenza, split virus, quadrivalent, PF 3 completed Gbay [place]ardini [place] 05/02/2024 11:27:20 Influenza, split virus, quadrivalent, PF 0 completed Gab[place] 05/02/2024 11:27:20 Influenza, split virus, quadrivalent, PF 9 completed Gaby ResendizHARRY ballesteros - [facility] - [place] & [place] 05/02/2024 11:27:20 Past Encounters Encounter ID Performer Location Encounter Start Date Encounter Closed Date Diagnosis/Indication Diagnosis SNOMED-CT Code Diagnosis ICD10 Code Diagnosis Note [id number] Jin Rosas MD [facility] [address] [place] [id number] 05/02/2024 11:17:18 05/02/2024 12:05:10 Osteonecrosis of bilateral hips 2585880153 5899763 M87.051 M87.052 PATIENT HAS A HISTORY OF AVASCULAR NECROSIS OF BOTH HIPS. WILL OBTAIN X-RAYS, SENT PATIENT TO PHYSICAL THERAPY WELL REFER TO ORTHOPEDIS T. History of anemia 692034 002 Z86.2 PATIENT HAS A HISTORY OF ANEMIA. AT SOME POINT SHE WAS TAKING IRON HOWEVER SHE NO LONGER TAKES IRON. WILL CHECK HER CBC TODAY. Hyperlipidemia 78413009 E78.5 PATIENT IS CURRENTLY ON ATORVASTAT IN Diabetes m ellitus screening 400873057 Z13.1 OBTAIN A1C Thyroid di sorder screening 459276996 Z13.29 WILL CHECK PATIENT'S THYROID FUNCTION TESTS Vitamin deficiency 78370 002 E56.9 SHE IS ON VITAMIN-D. History of non-Hodgkins lymphoma 392681962 Z85.72 PATIENT STATES THAT SHE WAS TREATED FOR NON-HODGKI N'S LYMPHOMA A CHILD. SHE HAS REMAINED IN REMISSION SINCE THEN ACCORDING TO PATIENT. WILL OBTAIN LAB WORK. Insomnia 904929256 G47.0 0 PATIENT IS REQUESTING A PRESCRIPTI ON FOR MEDICATION TO HELP INSOMNIA. SHE STATES SHE HAS TAKING A 100 MG OF TRAZODONE RIGHT NOW THAT IS NOT HELPING. Chronic pain syndrome 37 2716420 G89.4 WILL REFER PATIENT TO PAIN SPECIALIST Anxiety disorder 7361931 06 F41.9 PATIENT HAS A HISTORY OF ANXIETY DISORDER. SHE IS CURRENTLY ON BUPROPION. Restless legs 92439244 G 25.81 THIS IS BEING TREATED WITH SINEMET WELL ROPINIROLE . Overactive urinary bladder due to prolapse of female genital organ 600058159 N32.[address] PICKERING SHE IS ALSO ON MYBETRIQ Screening for malignant neoplasm of breast 546162974 Z12.39 Health Concerns Section Related Observation LastModified by Organization Detai ls LastModified Time None Recorded Concern Status LastModified by Organization Details LastModified Time None Recorded Advance Directives Directive N: Payers Insurance Date Sequence Insurance Name Policy Number Policy Raman Covered Member ID Raman Member ID Guarantor Name 05/25/2024 1 [facility] (MEDICAID HMO) Iliana Hernandez [id number] Notes Date Note Type Note Provider Name and Address Organization Details Recorded Time 05/02/2024 text/html THIS IS A NEW PATIENT WHO PRESENTS TODAY TO ESTABLISH CARE. Jin Rosas MD [address] [place] [address], [phone] & [place] 05/02/2024 12:09:20 OBGyn Episode No OBEpisode recorded.
--- OUTSIDE RECORDS SUMMARY | 2025-02-06 10:51 | XMS_ITS | Data Portability ---
Author Organization [facility] Address [address] [place] [address] Assessment Encounter Date Assessment Date Assessment LastModified by Organization Details LastModified Time 09/16/2024 09/16/2024 Discussed lab results. [email or web address] Not available 09/16/2024 15:11:04 Plan of Treatment Reminders Order Date Submit Date Provider Last Modified By Organization Details Last Modified Time Details Appointments None recorded. Lab Hepatitis C IgG Ab, qual, serum 2024 025 [email or web address] [address] [place], [address], 5 07:24:11 HIV 1 + 2, meaningful use set 2024 025 [email or web address] [address] [place], [address], 5 11:36:00 unlisted lab - toxassure flex 19, [id number] 2024 025 [email or web address] ([place]), [address] [place], [address], 5 22:06:14 lipid panel, serum or plasma 2024 025 [email or web address] [address] [place], [address], 5 15:55:02 CBC w/ auto diff 2024 025 [email or web address] ([place]), [address] [place], [address], 5 15:55:01 CMP, serum or plasma 2024 025 [facility]), [address] [place], [address], 5 15:55:02 HbA1c (hemoglobin A1c), blood 2024 025 [facility], [address] [place], [address], 5 13:04:06 cobalamin and folate panel, serum 2024 025 [facility]), [address] [facility], [place], [address], 5 22:06:16 TSH + free T4, serum 2024 025 [facility]), [address] [facility], [place], [address], 5 15:55:02 vitamin D, 25-hydroxy, total, serum 2024 025 [facility]), [address] [facility], [place], [address], 5 11:39:27 rapid flu (A+B) 2023 024 [facility], [address] [facility], [place], [address], 4 15:10:54 rapid SARS CoV 2 Ag, QL, IA, upper respiratory specimen 2023 024 [facility], [address] [facility], [place], [address], 4 15:10:38 Referral interventio nal cardiology referral 2024 025 [facility], [address], [place], [address], 5 10:39:39 orthopedic surgeon referral 2024 025 [place] Jordan Rick DO, [address], [place], [place], [address], 5 10:10:50 Procedures None recorded. Surgeries None recorded. Imaging electrocard iogram 2024 025 [facility] (Scheduling), [address], [place], [address], 5 15:16:49 MAMMO, screening, bilateral 2023 024 [facility] ([facility]), [facility] [address], [place], [address], 4 10:10:32 Medication Orders trazodone 150 mg tablet 2024 025 [facility], [address] [place] [address], [address], 5 17:38:57 losartan 50 mg tablet 2024 025 [facility], [address] [place] [address], [address], 5 17:38:55 omeprazole 40 mg capsule,del ayed release 2024 025 [facility], [address] [place] [address], [address], 5 17:38:54 carbidopa ER 50 mg-levodopa 200 mg tablet,exte nded release 2024 025 [facility], [address] [place] [address], [address], 5 17:48:11 tizanidine 4 mg tablet 2024 025 [facility], [address] [place] [address], [address], 5 17:48:09 trazodone 150 mg tablet 2024 025 [facility], [address] [place] [address], [address], 5 17:58:19 mirabegron ER 50 mg tablet,exte nded release 24 hr 2024 025 [facility], [address] [place] [address], [address], 5 17:48:10 bupropion HCl XL 300 mg 24 hr tablet, extended release 2024 025 [facility], [address] [place] [address], [address], 5 17:48:14 trazodone 50 mg tablet 2024 025 [facility], [address] [place] [address], [address], 5 17:58:18 losartan 50 mg tablet 2024 025 [facility], [address] [place] [address], [address], 5 13:32:38 losartan 25 mg tablet 2024 025 [facility], [address] [place] [address], [address], 5 11:59:49 Zovirax 5 % topical cream 2023 024 [facility], [address] [place] [address], [address], 4 15:12:40 Pristiq 50 mg tablet,exte nded release 2023 024 [facility], [facility] [place], [address], 11:03:33 Patient TargetsNo targets recorded. Patient Instructions Encounter Date Encounter Id Patient Instructions Last Modified By Organization Details Last Modified Time 06/03/2024 [id number] mammogram: about this test [email or web address] Not available 06/03/2024 15:32:26 insomnia: care instructions Not available 06/03/2024 15:07:19 gastroesophageal reflux disease (GERD): care instructions [email or web address] Not available 06/03/2024 15:07:19 high cholesterol : care instructions [email or web address] Not available 06/03/2024 15:07:19 Stress Incontine nce: Care Instructions [email or web address] Not available 06/03/2024 15:07:19 cope's esopha jailyn: care instructions [email or web address] Not available 06/03/2024 15:07:20 learning about m ood disorders [email or web address] Not available 06/03/2024 15:07:19 09/02/2024 [id number] gastroesophageal reflux disease (GERD): care instructions Not available 09/02/2024 11:52:11 high cholesterol : care instructions Not available 09/02/2024 11:52:11 high blood press ure: care instructions Not available 09/02/2024 11:52:11 learning about h igh blood pressure Not available 09/02/2024 11:52:11 09/16/2024 [id number] insomnia: care instructions Not available 09/16/2024 13:26:46 high blood press ure: care instructions Not available 09/16/2024 13:26:46 learning about h igh blood pressure Not available 09/16/2024 13:26:46 10/02/2024 [id number] restless legs syndrome: care instructions Not available 10/02/2024 17:41:56 learning about m ood disorders Not available 10/02/2024 17:41:56 10/29/2024 [id number] insomnia: care instructions Not available 10/29/2024 17:37:29 high blood press ure: care instructions Not available 10/29/2024 17:37:28 learning about h igh blood pressure Not available 10/29/2024 17:37:29 gastroesophageal reflux disease (GERD): care instructions [email or web address] Not available 10/29/2024 17:37:28 Reason for Referral Orthopedic Surgeon Referral for Pain of right shoulder joint Referring Physician: Radha Rene [facility], Encounter Date: 09/02/2024 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 Referring Physician: Radha Rene [facility], Encounter Date: 09/02/2024 Results Created Date Observation Date Name Description Value Unit Range Abnormal Flag Note LastModifiedBy Organization Detail LastModifiedTime 06/03/20 24 06/03/2024 rapid SARS CoV 2 Ag, QL, IA, upper respi rator y speci men SARS CoV Ag negati ve Not Available [address], [address], 06/03/2024 14:52:50 06/03/20 24 06/03/2024 rapid flu (A+B) Flu A negati ve Not Available [address], [address], 06/03/2024 14:52:39 06/03/20 24 06/03/2024 rapid flu (A+B) Flu B negati ve Not Available [address], [address], 06/03/2024 14:52:39 09/02/19 25 09/05/2024 TOXAS SURE [...] ===== ===== ===== === Not Available [facility] ([facility]) [address] [place], [address], 09/05/2024 22:06:14 09/02/19 25 09/05/2024 TOXAS SURE FLEX 19, UR pdf . Not Available [facility] ([facility]) [address] [place], [address], 09/05/2024 22:06:14 09/02/19 25 09/05/2024 TOXAS SURE FLEX 19, UR creatinine 67 mg/dL REFER ENCE RANGE : Ref Range >=20 Not Available [facility] ([facility]) [address] [place], [address], 09/05/2024 22:06:14 09/02/19 25 09/05/2024 TOXAS SURE FLEX 19, UR amphetamines ia Negati ve NG/mL cutoff :300 Not Available [facility] ([facility]) [address] [place], [address], 09/05/2024 22:06:14 09/02/19 25 09/05/2024 TOXAS SURE FLEX 19, UR benzodiazepi marium Negati ve Not Available [facility] ([facility]) [address] [place], [address], 09/05/2024 22:06:14 09/02/19 25 09/05/2024 TOXAS SURE FLEX 19, UR diazepam Not Detect ed NG/mg _crea t Not Available [facility] ([facility]) [address] [facility], [place], [address], 09/05/2024 22:06:14 09/02/19 25 09/05/2024 TOXAS SURE FLEX 19, UR desmethyldia zepam Not Detect ed NG/mg _crea t Not Available [facility] ([facility]) [address] [facility], [place], [address], 09/05/2024 22:06:14 09/02/19 25 09/05/2024 TOXAS SURE FLEX 19, UR oxazepam Not Detect ed NG/mg _crea t Not Available [facility] ([facility]) [address] [facility], [place], [address], 09/05/2024 22:06:14 09/02/19 25 09/05/2024 TOXAS SURE [...] live Oxaze live: None Not Available [facility] ([facility]) [address] [facility], [place], [address], 09/05/2024 22:06:14 09/02/19 25 09/05/2024 TOXAS SURE FLEX 19, UR alprazolam Not Detect ed NG/mg _crea t Not Available [facility] ([facility]) [address] [facility], [place], [address], 09/05/2024 22:06:14 09/02/19 25 09/05/2024 TOXAS SURE FLEX 19, UR alpha-hydrox yalprazolam Not Detect ed NG/mg _crea t Not Available [facility] ([facility]) [address] [place], [address], 09/05/2024 22:06:14 09/02/19 25 09/05/2024 TOXAS SURE FLEX 19, UR desalkylflur azepam Not Detect ed NG/mg _crea t Not Available [facility] ([facility]) [address] [place], [address], 09/05/2024 22:06:14 09/02/19 25 09/05/2024 TOXAS SURE FLEX 19, UR lorazepam Not Detect ed NG/mg _crea t Not Available [facility] ([facility]) [address] [place], [address], 09/05/2024 22:06:14 09/02/19 25 09/05/2024 TOXAS SURE FLEX 19, UR alpha-hydrox ytriazolam Not Detect ed NG/mg _crea t Not Available [facility] ([facility]) [address] [place], [address], 09/05/2024 22:06:14 09/02/19 25 09/05/2024 TOXAS SURE FLEX 19, UR clonazepam Not Detect ed NG/mg _crea t Not Available [facility] ([facility]) [address] [place], [address], 09/05/2024 22:06:14 09/02/19 25 09/05/2024 TOXAS SURE FLEX 19, UR 7-aminoclona zepam Not Detect ed NG/mg _crea t Not Available [facility] ([facility]) [address] [place], [address], 09/05/2024 22:06:14 09/02/19 25 09/05/2024 TOXAS SURE FLEX 19, UR midazolam Not Detect ed NG/mg _crea t Not Available [facility] ([facility]) [address] [place], [address], 09/05/2024 22:06:14 09/02/19 25 09/05/2024 TOXAS SURE FLEX 19, UR alpha-hydrox ymidazolam Not Detect ed NG/mg _crea t Not Available [facility] ([facility]) [address] [place], [address], 09/05/2024 22:06:14 09/02/19 25 09/05/2024 TOXAS SURE FLEX 19, UR flunitrazepa m Not Detect ed NG/mg _crea t Not Available [facility] ([facility]) [address] [place], [address], 09/05/2024 22:06:14 09/02/19 25 09/05/2024 TOXAS SURE FLEX 19, UR desmethylflu nitrazepam Not Detect ed NG/mg _crea t Not Available [facility] ([facility]) [address] [place], [address], 09/05/2024 22:06:14 09/02/19 25 09/05/2024 TOXAS SURE FLEX 19, UR cocaine metabolite ia Negati ve NG/mL cutoff :150 Not Available [facility] ([facility]) [address] [place], [address], 09/05/2024 22:06:14 09/02/19 25 09/05/2024 TOXAS SURE FLEX 19, UR ethanol biomarkers ia Negati ve NG/mL cutoff :500 Not Available [facility] ([facility]) [address] [place] [address], [address], 09/05/2024 22:06:14 09/02/19 25 09/05/2024 TOXAS SURE FLEX 19, UR cannabinoids ia COMMEN T NG/mL cutoff :20 Furth er testi ng indic ated Not Available [facility] ([facility]) [address] [place], [address], 09/05/2024 22:06:14 09/02/19 25 09/05/2024 TOXAS SURE FLEX 19, UR 6-acetylmorp jay ia Negati ve NG/mL cutoff :10 Not Available [facility] ([facility]) [address] [place], [address], 09/05/2024 22:06:14 09/02/19 25 09/05/2024 TOXAS SURE FLEX 19, UR opiate class ia Negati ve NG/mL cutoff :100 Not Available [facility] ([facility]) [address] [place], [address], 09/05/2024 22:06:14 09/02/19 25 09/05/2024 TOXAS SURE FLEX 19, UR oxycodone class ia Negati ve NG/mL cutoff :100 Not Available [facility] ([facility]) [address] [place], [address], 09/05/2024 22:06:14 09/02/19 25 09/05/2024 TOXAS SURE FLEX 19, UR methadone ia Negati ve NG/mL cutoff :100 Not Available [facility] ([facility]) [address] [place], [address], 09/05/2024 22:06:14 09/02/19 25 09/05/2024 TOXAS SURE FLEX 19, UR methadone mtb ia Negati ve NG/mL cutoff :100 Not Available [facility] ([facility]) [address] [place], [address], 09/05/2024 22:06:14 09/02/19 25 09/05/2024 TOXAS SURE FLEX 19, UR buprenorphin e ia Negati ve NG/mL cutoff :5.0 Not Available [facility] ([facility]) [address] [place], [address], 09/05/2024 22:06:14 09/02/19 25 09/05/2024 TOXAS SURE FLEX 19, UR fentanyl ia Negati ve NG/mL cutoff :2.0 Not Available [facility] ([facility]) [address] [facility], [place], [address], 09/05/2024 22:06:14 09/02/19 25 09/05/2024 TOXAS SURE FLEX 19, UR tapentadol ia Negati ve NG/mL cutoff :200 Not Available [facility] ([facility]) [address] [place], [address], 09/05/2024 22:06:14 09/02/19 25 09/05/2024 TOXAS SURE FLEX 19, UR propoxyphene ia Negati ve NG/mL cutoff :300 Not Available [facility] ([facility]) [address] [place], [address], 09/05/2024 22:06:14 09/02/19 25 09/05/2024 TOXAS SURE FLEX 19, UR tramadol ia Negati ve NG/mL cutoff :200 Not Available [facility] ([facility]) [address] [place], [address], 09/05/2024 22:06:14 09/02/19 25 09/05/2024 TOXAS SURE FLEX 19, UR methylphenid ate ia Negati ve NG/mL cutoff :100 Not Available [facility] ([facility]) [address] [place], [address], 09/05/2024 22:06:14 09/02/19 25 09/05/2024 TOXAS SURE FLEX 19, UR barbiturates ia Negati ve NG/mL cutoff :200 Not Available [facility] ([facility]) [address] [place] [address], [address], 09/05/2024 22:06:14 09/02/19 25 09/05/2024 TOXAS SURE FLEX 19, UR phencyclidin e ia Negati ve NG/mL cutoff :25 Not Available [facility] ([facility]) [address] [place], [address], 09/05/2024 22:06:14 09/02/19 25 09/05/2024 TOXAS SURE FLEX 19, UR gabapentin ia Negati ve ug/mL cutoff :1.0 Not Available [facility] ([facility]) [address] [place], [address], 09/05/2024 22:06:14 09/02/19 25 09/05/2024 TOXAS SURE FLEX 19, UR anticonvulsa nts Negati ve Not Available [facility] ([facility]) [address] [place], [address], 09/05/2024 22:06:14 09/02/19 25 09/05/2024 TOXAS SURE FLEX 19, UR pregabalin Not Detect ed Not Available [facility] ([facility]) [address] [place], [address], 09/05/2024 22:06:14 09/02/19 25 09/05/2024 TOXAS SURE FLEX 19, UR carisoprodol ia Negati ve NG/mL cutoff :100 Not Available [facility] ([facility]) [address] [place], [address], 09/05/2024 22:06:14 09/02/19 25 09/03/2024 TSH+F REE T4 TSH COMMEN T uIU/m L Test not perfo rmed. No speci men recei jolynn. TESTI NG NOT ON ORIGI NAL REQ. UPLOA D ERROR . Not Available [facility] ([facility]) [address] [place] [address], [address], 09/05/2024 22:06:14 09/02/19 25 09/03/2024 TSH+F REE T4 T4,free(dire ct) TNP Test not perfo rmed Not Available [facility] ([facility]) [address] [facility], [place], [address], 09/05/2024 22:06:14 09/02/19 25 09/03/2024 CBC WITH DIFFE RENTI AL/PL ATELE T WBC COMMEN T x10e3 /uL Test not perfo rmed. No speci men recei jolynn. TESTI NG NOT ON ORIGI NAL REQ. UPLOA D ERROR . Not Available [facility] ([facility]) [address] [facility], [place], [address], 09/05/2024 22:06:15 09/02/19 25 09/03/2024 CBC WITH DIFFE RENTI AL/PL ATELE T RBC TNP Test not perfo rmed Not Available [facility] ([facility]) [address] [place], [address], 09/05/2024 22:06:15 09/02/19 25 09/03/2024 CBC WITH DIFFE RENTI AL/PL ATELE T hemoglobin TNP Test not perfo rmed Not Available [facility] ([facility]) [address] [place], [address], 09/05/2024 22:06:15 09/02/19 25 09/03/2024 CBC WITH DIFFE RENTI AL/PL ATELE T hematocrit TNP Test not perfo rmed Not Available [facility] ([facility]) [address] [place], [address], 09/05/2024 22:06:15 09/02/19 25 09/03/2024 CBC WITH DIFFE RENTI AL/PL ATELE T MCV FIELD SUPERINTENDENT Not Available [facility] ([facility]) [address] [place], [address], 09/05/2024 22:06:15 09/02/19 25 09/03/2024 CBC WITH DIFFE RENTI AL/PL ATELE T MCH FIELD SUPERINTENDENT Not Available [facility] ([facility]) [address] [facility], [place], [address], 09/05/2024 22:06:15 09/02/19 25 09/03/2024 CBC WITH DIFFE RENTI AL/PL ATELE T MCHC FIELD SUPERINTENDENT Not Available [facility] ([facility]) [address] [facility], [place], [address], 09/05/2024 22:06:15 09/02/19 25 09/03/2024 CBC WITH DIFFE RENTI AL/PL ATELE T RDW FIELD SUPERINTENDENT Not Available [facility] ([facility]) [address] [facility], [place], [address], 09/05/2024 22:06:15 09/02/19 25 09/03/2024 CBC WITH DIFFE RENTI AL/PL ATELE T platelets TNP Test not perfo rmed Not Available [facility] ([facility]) [address] [facility], [place], [address], 09/05/2024 22:06:15 09/02/19 25 09/03/2024 CBC WITH DIFFE RENTI AL/PL ATELE T neutrophils TNP Test not perfo rmed Not Available [facility] ([facility]) [address] [facility], [place], [address], 09/05/2024 22:06:15 09/02/19 25 09/03/2024 CBC WITH DIFFE RENTI AL/PL ATELE T lymphs TNP Test not perfo rmed Not Available [facility] ([facility]) [address] [facility], [place], [address], 09/05/2024 22:06:15 09/02/19 25 09/03/2024 CBC WITH DIFFE RENTI AL/PL ATELE T monocytes TNP Test not perfo rmed Not Available [facility] ([facility]) [address] [facility], [place], [address], 09/05/2024 22:06:15 09/02/19 25 09/03/2024 CBC WITH DIFFE RENTI AL/PL ATELE T eos TNP Test not perfo rmed Not Available [facility] ([facility]) [address] [place], [address], 09/05/2024 22:06:15 09/02/19 25 09/03/2024 CBC WITH DIFFE RENTI AL/PL ATELE T basos FIELD SUPERINTENDENT Not Available [facility] ([facility]) [address] [place], [address], 09/05/2024 22:06:15 09/02/19 25 09/03/2024 CBC WITH DIFFE RENTI AL/PL ATELE T immature cells FIELD SUPERINTENDENT Not Available [facility] ([facility]) [address] [place], [address], 09/05/2024 22:06:15 09/02/19 25 09/03/2024 CBC WITH DIFFE RENTI AL/PL ATELE T neutrophils (absolute) FIELD SUPERINTENDENT Not Available [facility] ([facility]) [address] [place], [address], 09/05/2024 22:06:15 09/02/19 25 09/03/2024 CBC WITH DIFFE RENTI AL/PL ATELE T lymphs (absolute) TNP Test not perfo rmed Not Available [facility] ([facility]) [address] [place], [address], 09/05/2024 22:06:15 09/02/19 25 09/03/2024 CBC WITH DIFFE RENTI AL/PL ATELE T monocytes(ab solute) FIELD SUPERINTENDENT Not Available [facility] ([facility]) [address] [place], [address], 09/05/2024 22:06:15 09/02/19 25 09/03/2024 CBC WITH DIFFE RENTI AL/PL ATELE T eos (absolute) TNP Test not perfo rmed Not Available [facility] ([facility]) [address] [facility], [place], [address], 09/05/2024 22:06:15 09/02/19 25 09/03/2024 CBC WITH DIFFE RENTI AL/PL ATELE T baso (absolute) TNP Test not perfo rmed Not Available [facility] ([facility]) [address] [facility], [place], [address], 09/05/2024 22:06:15 09/02/19 25 09/03/2024 CBC WITH DIFFE RENTI AL/PL ATELE T immature granulocytes FIELD SUPERINTENDENT Not Available [facility] ([facility]) [address] [facility], [place], [address], 09/05/2024 22:06:15 09/02/19 25 09/03/2024 CBC WITH DIFFE RENTI AL/PL ATELE T immature grans (abs) FIELD SUPERINTENDENT Not Available [facility] ([facility]) [address] [facility], [place], [address], 09/05/2024 22:06:15 09/02/19 25 09/03/2024 CBC WITH DIFFE RENTI AL/PL ATELE T NRBC FIELD SUPERINTENDENT Not Available [facility] ([facility]) [address] [facility], [place], [address], 09/05/2024 22:06:15 09/02/19 25 09/03/2024 CBC WITH DIFFE RENTI AL/PL ATELE T hematology comments: FIELD SUPERINTENDENT Not Available [facility] ([facility]) [address] [facility], [place], [address], 09/05/2024 22:06:15 09/02/19 25 09/03/2024 COMP. METAB OLIC PANEL (14) glucose COMMEN T mg/dL Test not perfo rmed. No speci men recei jolynn. TESTI NG NOT ON ORIGI NAL REQ. UPLOA D ERROR . Not Available [facility] ([facility]) [address] [facility], [place], [address], 09/05/2024 22:06:15 09/02/19 25 09/03/2024 COMP. METAB OLIC PANEL (14) BUN TNP Test not perfo rmed Not Available [facility] ([facility]) [address] [facility], [place], [address], 09/05/2024 22:06:15 09/02/19 25 09/03/2024 COMP. METAB OLIC PANEL (14) creatinine TNP Test not perfo rmed Not Available [facility] ([facility]) [address] [facility], [place], [address], 09/05/2024 22:06:15 09/02/19 25 09/03/2024 COMP. METAB OLIC PANEL (14) eGFR FIELD SUPERINTENDENT Not Available [facility] ([facility]) [address] [facility], [place], [address], 09/05/2024 22:06:15 09/02/19 25 09/03/2024 COMP. METAB OLIC PANEL (14) BUN/creatini ne ratio FIELD SUPERINTENDENT Not Available [facility] ([facility]) [address] [facility], [place], [address], 09/05/2024 22:06:15 09/02/19 25 09/03/2024 COMP. METAB OLIC PANEL (14) sodium TNP Test not perfo rmed Not Available [facility] ([facility]) [address] [facility], [place], [address], 09/05/2024 22:06:15 09/02/19 25 09/03/2024 COMP. METAB OLIC PANEL (14) potassium TNP Test not perfo rmed Not Available [facility] ([facility]) [address] [facility], [place], [address], 09/05/2024 22:06:15 09/02/19 25 09/03/2024 COMP. METAB OLIC PANEL (14) chloride TNP Test not perfo rmed Not Available [facility] ([facility]) [address], [place], [address], 09/05/2024 22:06:15 09/02/19 25 09/03/2024 COMP. METAB OLIC PANEL (14) carbon dioxide, total TNP Test not perfo rmed Not Available [facility] ([facility]) [address], [place], [address], 09/05/2024 22:06:15 09/02/19 25 09/03/2024 COMP. METAB OLIC PANEL (14) calcium TNP Test not perfo rmed Not Available [facility] ([facility]) [address] [facility], [place], [address], 09/05/2024 22:06:15 09/02/19 25 09/03/2024 COMP. METAB OLIC PANEL (14) protein, total TNP Test not perfo rmed Not Available [facility] ([facility]) [address], [place], [address], 09/05/2024 22:06:15 09/02/19 25 09/03/2024 COMP. METAB OLIC PANEL (14) albumin TNP Test not perfo rmed Not Available [facility] [facility] [address] [facility], [place], [address], 09/05/2024 22:06:15 09/02/19 25 09/03/2024 COMP. METAB OLIC PANEL (14) globulin, total FIELD SUPERINTENDENT Not Available [facility] ([facility]) [address] [facility], [place], [address], 09/05/2024 22:06:15 09/02/19 25 09/03/2024 COMP. METAB OLIC PANEL (14) A/G ratio FIELD SUPERINTENDENT Not Available [facility] ([facility]) [address], [place], [address], 09/05/2024 22:06:15 09/02/19 25 09/03/2024 COMP. METAB OLIC PANEL (14) bilirubin, total TNP Test not perfo rmed Not Available [facility] ([facility]) [address] [place], [address], 09/05/2024 22:06:15 09/02/19 25 09/03/2024 COMP. METAB OLIC PANEL (14) alkaline phosphatase TNP Test not perfo rmed Not Available [facility] ([facility]) [address] [place], [address], 09/05/2024 22:06:15 09/02/19 25 09/03/2024 COMP. METAB OLIC PANEL (14) AST (SGOT) TNP Test not perfo rmed Not Available [facility] ([facility]) [address] [place], [address], 09/05/2024 22:06:15 09/02/19 25 09/03/2024 COMP. METAB OLIC PANEL (14) ALT (SGPT) TNP Test not perfo rmed Not Available [facility] ([facility]) [address] [place], [address], 09/05/2024 22:06:15 09/02/19 25 09/03/2024 LIPID PANEL WITH LDL/H DL RATIO cholesterol, total COMMEN T mg/dL Test not perfo rmed. No speci men recei jolynn. TESTI NG NOT ON ORIGI NAL REQ. UPLOA D ERROR . Not Available [facility] ([facility]) [address] [place], [address], 09/05/2024 22:06:15 09/02/19 25 09/03/2024 LIPID PANEL WITH LDL/H DL RATIO triglyceride s TNP Test not perfo rmed Not Available [facility] ([facility]) [address] [place], [address], 09/05/2024 22:06:15 09/02/19 25 09/03/2024 LIPID PANEL WITH LDL/H DL RATIO HDL cholesterol TNP Test not perfo rmed Not Available [facility] ([facility]) [address] [facility], [place], [address], 09/05/2024 22:06:15 09/02/19 25 09/03/2024 LIPID PANEL WITH LDL/H DL RATIO VLDL cholesterol marlena COMMEN T mg/dL Unabl e to calcu late resul t since non-n umeri c resul t obtai aj for compo nent test. Not Available [facility] ([facility]) [address] [facility], [place], [address], 09/05/2024 22:06:15 09/02/19 25 09/03/2024 LIPID PANEL WITH LDL/H DL RATIO LDL chol calc ([facility]) FIELD SUPERINTENDENT Not Available [facility] ([facility]) [address] [facility], [place], [address], 09/05/2024 22:06:15 09/02/19 25 09/03/2024 LIPID PANEL WITH LDL/H DL RATIO LDL calc comment: FIELD SUPERINTENDENT Not Available [facility] ([facility]) [address] [facility], [place], [address], 09/05/2024 22:06:15 09/02/19 25 09/03/2024 LIPID PANEL WITH LDL/H DL RATIO LDL/HDL ratio FIELD SUPERINTENDENT Not Available [facility] ([facility]) [address] [place], [address], 09/05/2024 22:06:15 09/02/19 25 09/03/2024 VITAM IN B12 AND FOLAT E vitamin B12 COMMEN T pg/mL Test not perfo rmed. No speci men recei jolynn. TESTI NG NOT ON ORIGI NAL REQ. UPLOA D ERROR . Not Available [facility] ([facility]) [address] [place], [address], 09/05/2024 22:06:16 09/02/19 25 09/03/2024 VITAM IN B12 AND FOLAT E folate (folic acid), serum TNP Test not perfo rmed Not Available [facility] ([facility]) [address] [facility], [place], [address], 09/05/2024 22:06:16 09/02/19 25 09/03/2024 HCV ANTIB PAULA RFX TO QUANT PCR HCV Ab COMMEN T Test not perfo rmed. No speci men recei jolynn. TESTI NG NOT ON ORIGI NAL REQ. UPLOA D ERROR . Not Available [facility] ([facility]) [address] [place], [address], 09/05/2024 22:06:16 09/02/19 25 09/05/2024 JADE CHOU DS, MS, UR RFX cannabinoids +POSIT JOCE+ Not Available [facility] ([facility]) [address] [place], [address], 09/05/2024 22:06:17 09/02/19 25 09/05/2024 PHILLJuan Daniel [...] other canna binoi ds. Not Available [facility] ([facility]) [address] [place], [address], 09/05/2024 22:06:17 09/02/19 25 09/03/2024 VITAM IN [...] um and D. Priya gallegos [place]: [facility] . 2. Linda booker MF, Scooby wheeler [place], [place] off-F errar i BARLOW, et al. Evalu ation , treat ment, and preve ntion of vitam in D defic iency : an Endoc rine Socie ty clini marlena pract ice guide line. JCEM. 2010; 96(7) :1911 -30. Not Available [facility] ([facility]) [address] [facility], [place], [address], 09/05/2024 22:06:17 09/02/19 25 09/03/2024 HIV AB/P2 4 AG WITH REFLE X HIV Ab/P24 Ag screen COMMEN T Test not perfo rmed. No speci men recei jolynn. TESTI NG NOT ON ORIGI NAL REQ. UPLOA D ERROR . Not Available [facility] ([facility]) [address] [facility], [place], [address], 09/05/2024 22:06:17 09/02/19 25 09/03/2024 SPECI MEN STATU S REPOR T specimen status report COMMEN T Test not perfo rmed. No speci men recei jolynn. TEST: 25684 6 TSH+F ree T4 24631 9 CBC With Diffe renti al/Pl atele t 45707 0 Comp. Metab olic Panel (14) 99468 0 Lipid Panel With LDL/H DL Ratio 34950 0 Vitam in B12 and Folat e 19846 0 HCV Antib paula RFX to Quant PCR 12777 0 Vitam in D, 25-Hy droxy 85582 5 HIV Ab/p2 4 Ag with Refle x TESTI NG NOT ON ORIGI NAL REQ. UPLOA D ERROR . Not Available [facility] ([facility]) [address], [place], [address], 09/05/2024 22:06:18 09/02/19 25 09/02/2024 HbA1c (hemo globi n A1c), blood HbA1c 5.[address] [facility] [address] [facility], [place], [address], 09/02/2024 11:52:36 07/22/20 24 07/15/2024 MAMMO , scree georgina, bilat eral No observ ation record ed. [facility] (Scheduling) [address], [place], [address], 07/22/2024 10:29:59 09/02/19 25 09/02/2024 elect bo ferreira am No observ ation record ed. [email or web address] [facility] (Scheduling) [address], [place], [address], 09/02/2024 15:16:53 Result Notes None recorded. Problems Name Problem SNOMED Code Status Onset Date Resolution Date Notes Provider Name and Address Organization Details Recorded Time Herpes simplex 80354733 Active 2023 SHON Sinclair [address] [place] [address], [phone] 8, [facility] [employer] 10:56:48 Deficiency of vitamin D2 004190438 Active 2023 SHON Sinclair [address] [place] [address], 36604-502 8, [facility] [employer] 10:56:41 Depressive disorder 01317975 Active 2023 SHON Sinclair [address] [place] [address], 13089-461 8, [employer] 4 10:56:43 Allergic rhinitis 66691370 Active 2023 SHON Sinclair [address] [place] [address], 70070-080 8, [employer] 4 10:56:32 Restless legs 12086157 Active 2023 SHON Sinclair [address] [place] [address], 32607-372 8, [employer] 4 10:56:57 Urinary incontinenc e 444021759 Active 2023 SHON Sinclair [address] [place] [address], 52555-160 8, [employer] 4 10:56:54 Hyperlipide nahum 90745960 Active 2023 SHON Sinclair [address] [place] [address], 93160-538 8, [employer] 4 10:57:00 Spasm 07661094 Active 2023 SHON Sinclair [address] [place] [address], 55407-347 8, [employer] 4 15:06:09 Gastroesoph ageal reflux disease 140177996 Active 2023 SHON Sinclair [address] [place] [address], 95611-095 8, [employer] 4 10:56:46 Insomnia 901628183 Active 2023 SHON Sinclair [address] [place] [address], 99318-732 8, [employer] 4 10:56:56 Vitamin D deficiency 97160937 Active 2023 SHON Sinclair [address] [place] [address], 47251-571 8, [employer] 4 10:56:52 Spasm of back muscles 369756127 Active 2023 SHON Sinclair [address] [place] [address], 55450-017 8, [employer] 4 10:57:03 Essential hypertensio n 77503757 Active 2024 Radha Rene NP [address] [place] [address], 35196-840 8, [employer] 5 11:52:00 Fatigue 43627922 Active 2024 Radha Rene NP [address] [place] [address], 04477-700 8, [employer] 5 11:52:45 Pain of right shoulder joint 8766038230514 9100 Active 2024 Radha Rene NP [address] [place] [address], 05107-166 8, [employer] 5 11:56:35 Pain of right wrist 5172972888877 00 Active 2024 Radha Rene NP [address] [place] [address], 24213-831 8, [employer] 5 12:27:42 Overactive urinary bladder 235089111 Active 2024 Radha Rene NP [address] [place] [address], 43449-856 8, [employer] 5 17:34:47 Abdominal pain 35732048 Active 2024 Radha Rene NP [address] [place] [address], 87067-178 8, [employer] 5 17:37:17 Problem Notes None recorded. Procedures Surgical History Date Name Laterality Status Provider Name and Address Organization Details Recorded Time 07/15/20 24 Most Recent Mammogram completed [facility] [employer] 10/29/2024 16:29:55 09/21/18 97 Hysterectomy completed Pérez Montandon [employer] 09/05/2024 15:37:25 Angioplasty completed [facility] [employer] 06/03/2024 14:42:28 Breast Biopsy completed [employer] 06/03/2024 14:42:28 Colposcopy completed [facility] [employer] 06/03/2024 14:42:28 Joint Replacement completed [facility] Roberto [employer] 06/03/2024 14:42:28 Orthopedic Surgery completed [facility] [employer] 06/03/2024 14:42:29 Gallbladder Surgery completed [facility] [employer] 06/03/2024 14:42:29 Endometrial Biopsy completed [facility] Roberto Carlos [employer] 06/03/2024 14:42:29 Total Hysterectomy completed [employer] 06/03/2024 14:42:29 Imaging Results None recorded. Procedure Notes None recorded. Medical Equipment None Reported. Allergies Allergen ID Allergen Name Allergen Category Reaction Reaction Severity Criticality Documentation Date Start Date Code Code System Note Provider Name and Address Organization Details Recorded Time 23466 codeine medicatio n Not available Not available Not available 06/03/2024 2670 RxNorm [employer] 14:43:16 Medications Name Sig Start Date [...] Not Available Not Available Not Aveliza moreno [facility] COVID-19 Antigen Rapid Home Test kit [...] Last Updated DateTime 160.02 cm 26.3 kg/m2 65198.7 7 g 97.8 [degF] 92 /min 96 % 96 % 148/106 mm[Hg] 151/105 mm[Hg] 156/108 mm[Hg] 159/100 mm[Hg] 147/91 mm[Hg] [employer] 12:39:30 Date Recorded Systolic And Diastolic Provider Name and Address Organization Details Last Updated DateTime 09/16/2024 142/98 mm[Hg] Barbara [facility] [employer] 09/16/2024 12:24:33 Date Recorded Body height Body mass index (BMI) Body weight Body temperature Heart rate Oxygen saturation Oxygen saturation in Arterial blood by Pulse oximetry Systolic And Diastolic Systolic And Diastolic Provider Name and Address Organization Details Last Updated DateTime 5 160.02 cm 25.9 kg/m2 97059.4 9 g 98.5 [degF] 88 /min 97 % 97 % 144/100 mm[Hg] 135/95 mm[Hg] [employer] 5 12:11:57 Date Recorded Body height Body mass index (BMI) Body weight Body temperature Heart rate Oxygen saturation Oxygen saturation in Arterial blood by Pulse oximetry Systolic And Diastolic Provider Name and Address Organization Details Last Updated DateTime 5 160.02 cm 25.4 kg/m2 73894.8 1 g 98.4 [degF] 96 /min 99 % 99 % 109/76 mm[Hg] [employer] 5 16:52:16 Date Recorded Body height Body mass index (BMI) Body weight Body temperature Heart rate Oxygen saturation Oxygen saturation in Arterial blood by Pulse oximetry Systolic And Diastolic Provider Name and Address Organization Details Last Updated DateTime 5 160.02 cm 25.7 kg/m2 62995.5 9 g 98.6 [degF] 101 /min 95 % 95 % 132/85 mm[Hg] Marry Khan [employer] 5 17:05:06 Date Recorded Body weight Body mass index (BMI) Body height Oxygen saturation Oxygen saturation in Arterial blood by Pulse oximetry Heart rate Body temperature Systolic And Diastolic Systolic And Diastolic Systolic And Diastolic Provider Name and Address Organization Details Last Updated DateTime 4 61283.8 9 g 25.7 kg/m2 160.02 cm 96 % 96 % 90 /min 98.4 [degF] 137/94 mm[Hg] 132/92 mm[Hg] 132/90 mm[Hg] Barbara [employer] 4 14:54:32 Social History Question Answer Notes LastModified by Organizat ion Details LastModified Time Tobacco Smoking Status Former Smoker Barbara Ken [employer]. 06/03/2024 14:42:28 Do You Have An Advance [...] Information not available 06/03/2024 What Type Of Tile Professional Do You Use? None Information not available [...] Or The Highest Degree You Have Received? [id number] Information not available 06/03/2024 Have There Been Any Changes To Your Family Or Social Situation? Yes Information no t available 06/03/2024 When Did You Quit Smoking? 16+yearssincelast cigarette Information not available 06/03/2024 Are There Any Guns Present In Your Home? No Information not available 06/03/2024 Which Of Your Hands Is Dominant? Left Information not available 06/03/2024 Do You Have A Medical Power Of Engineering Drafter? No Information not available 06/03/2024 What Was [...] anxious, or unable to sleep at night)? [id number] Information not available 06/03/2024 Do you have [...] Artery Disease N Other N Gout N Kidney Stones N Blood Diseases N Hyperthyroidism N Blood Transfusion N Breast Cancer N Emergency room visit since last appointm ent. N COPD N Depression Y Dermatologic Disorders N Lung Disease N Hypothyroidism N Developmental or Behavioral Disorders N Defects or Inherited Disease N Breast Problem N Difficulty Swallowing N [...] Psychiatric/Mental Health Condition N Organ Transplant N Fibromyalgia Y Headaches Y Schizophrenia N Dialysis N Kidney Disease N Allergies/Hayfever N Heart Problems N Ear or Hearing Problems N Hospitalizations N Learning Disorder N Artificial Joints N Thyroid Problems N GI Problems N Acne N ADD/ADHD N Eating Disorder N Anemia N Constipation N Mental Illness N Ovarian Cancer N Diabetes N Bedwetting N Hepatitis/Liver Disease N Tuberculosis N Eczema N Diverticulitis N Abuse/Domestic Violence N Asthma N Trauma/Violence N Substance Abuse [...] Recorded Time Tdap 2 completed SHON Sinclair [address] [place] [address], [phone], [employer] 06/03/2024 14:54:36 Tdap 1 completed Pérez Susan null, [employer] 09/02/2024 11:12:25 Influenza, split virus, trivalent, preservative 7 completed Pérez Montandon null, [employer] 09/02/2024 11:12:25 Influenza, split virus, trivalent, preservative 8 completed Pérez Susan null, [employer] 09/02/2024 11:12:25 Influenza, split virus, trivalent, PF 8 completed Pérez Montandon null, [employer] 09/02/2024 11:12:25 Td (adult), 2 Lf tetanus toxoid, preservative free, adsorbed 2 completed Pérez Susan null, [employer] 09/02/2024 11:12:25 Influenza, split virus, quadrivalent, PF 7 completed Pérez Montandon null, [employer] 09/02/2024 11:12:25 Influenza, split virus, quadrivalent, PF 1 completed Pérez Susan null, [employer] 09/02/2024 11:12:25 Influenza, split virus, quadrivalent, PF 8 completed Pérez Montandon null, [employer] 09/02/2024 11:12:25 Influenza, split virus, quadrivalent, PF 2 completed Pérez Montandon null, [employer] 09/02/2024 11:12:25 Influenza, split virus, quadrivalent, PF 3 completed Pérez Susan null, [employer] 09/02/2024 11:12:25 Influenza, split virus, quadrivalent, PF 0 completed Pérez Susan null, [employer] 09/02/2024 11:12:25 Influenza, split virus, quadrivalent, PF 9 completed Pérez Susan null, [employer] 09/02/2024 11:12:25 Past Encounters Encounter ID Performer Location Encounter Start Date Encounter Closed Date Diagnosis/Indication Diagnosis SNOMED-CT Code Diagnosis ICD10 Code Diagnosis Note [id number] SHON Sinclair 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 [address] [place] [address] [id number] 2 09/02/2024 10:39:34 09/02/2024 12:44:05 Hyperlipidemia 76507278 E78.5 Gastroesop hageal reflux disease 586301351 K21.00 History of non-Hodgkins lymphoma 792471424 Z85.72 History of acute lymphoid leukemia 1000066528 23376656 Z85.6 Essential hypertension 00058234 I10 Adult heal th examination 669505168 Z00.00 Fatigue 21999421 R53.83 Vitamin D deficiency 347 01251 E55.9 Viral screening 99929409 4 Z11.59 Long-term drug therapy 291985119 Z79.891 Pain of ri ght shoulder joint 4080470147 8584060 M25.511 Pain of right wrist 3169 499217 36691 M25.[id number] [facility] [address] [place] [address] [id number] 2 09/16/2024 11:31:23 09/16/2024 14:01:16 Insomnia 196520716 G47.00 Essential hypertension 44430688 I10 Patient to keep bp log and f/u in 2 weeks [id number] Radha Rene NP [facility] [address] [place] [address] [id number] 2 10/02/2024 16:46:53 10/02/2024 17:58:06 Insomnia 853717184 G47.00 Spasm of back muscles 20 3343574 M62.830 Overactive urinary bladder 365840139 N32.81 Restless legs 95363541 G 25.81 Depressive disorder 3548 9007 F32.A [id number] SHON Sinclair [facility] [address] [place] [address] [id number] 2 10/29/2024 16:55:45 10/29/2024 17:31:07 Gastroesophageal reflux disease 057187707 K21.00 Insomnia 515016409 G47.0 0 Essential hypertension 96370757 I10 Health Concerns Section Related Observation LastModified by Organization Detai ls LastModified Time None Recorded Concern Status LastModified by Organization Details LastModified Time None Recorded Advance Directives Directive N: Payers Insurance Date Sequence Insurance Name Policy Number Policy Raman Covered Member ID Raman Member ID Guarantor Name 10/29/2024 1 [employer] [place] (MEDICAID HMO) Iliana Hernandez [id number] Iliana Hernandez Notes Date Note Type Note [...] working like it once did. SHON Sinclair [address] [place] [address], [phone], [employer], [employer]. 06/03/2024 15:40:24 09/02/2024 text/html Patient presente d to clinic today to establish care. Patient reports that she sees Dr. Gtz for urology at [place]. Patient reports she had a Total Hysterectomy in 1996 in [facility] secondary to endometriosis. Patient reports that [...] by cardiology for echos, but states seen motor pool clerk at [place] who discharged her. Patient states that she [...] reports she had Colonoscopy last year at [facility] and was normal. Patient states she used to take lisinopril but states her bp got better and she did not like the lisinopril so stopped taking it. Patient reports is up to date on her Mammogram and had it done this past year. Patient has no additional complaints or concerns today. Radha Rene NP [address] [place], [address], [employer] 09/02/2024 14:17:17 09/16/2024 text/html Patient presente [...] it worked well. Radha Rene NP [address] [place], [address], [employer] 09/16/2024 15:11:09 10/02/2024 text/html Presented to [...] Patient states that she did see her motor pool clerk last week and states was told to f/u in 1 year. Patient reports that her bp has been doing well and systolic has been running 130s and diastolic in 70s at home. Patient has no further complaints or concerns for today's visit. Radha Rene NP [address] [place], [address], [employer] 10/02/2024 17:55:06 10/29/2024 text/html Patient presents for followup. History of GERD, HTN, insomnia. 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 She is stiff and sore today. She fell last week when she stood up and her foot had fallen asleep. SHON Sinclair [address] [place] [address], [phone], [facility] [employer], [facility]. 10/29/2024 17:47:19 OBGyn Episode No OBEpisode recorded.
[2025-02-06] MEDS: IOPAMIDOL-370 (76%);100ML BOTTLE 75 ML IV (11:36)
[2025-02-06] MEDS: SODIUM CHLORIDE 0.9% 10ML SYR (RAD ONLY) 10 ML IV (11:36)
== END 2025-02-06 23:59 | disposition home or self-care (01) ==
LOC: RAD 10:48
PROVIDERS: PCP Physician Assistant; Visit Provider Urology
DX: N34.2 Other urethritis (principal); N32.81 Overactive bladder; N28.1 Cyst of kidney, acquired; N28.9 Disorder of kidney and ureter, unspecified; Z90.49 Acquired absence of other specified parts of digestive tract
CPT/HCPCS: 74178; 76857; Q9967

== ENCOUNTER 2025-03-10 13:00 | Outpatient (CLI) | payer MEDICAID, SELFPAY ==
[2025-03-10 14:34] LABS: Microscopic, Urine URINE MICROSCOPIC (MICROSCOPIC)
[2025-03-10 19:50] LABS: Bilirubin,Urine Negative (Negative); Color,Urine YELLOW (Yellow); Glucose,Urine (UA) Negative (Negative); Ketones,Urine Negative (Negative); Leukocyte Esterase,Urine TRACE (Negative); PH,Urine 6.0 (5.0-8.5); Protein,Urine Negative (Negative); Specific Gravity, Urine >= 1.030 (1.005-1.030); Urobilinogen,Urine 0.2 EU/dl (0.2)
[2025-03-10 20:43] LABS: Bacteria,Urine 2+ /lpf; Mucus,Urine 1+ /lpf
--- OUTSIDE RECORDS SUMMARY | 2025-03-12 10:20 | XMS_ITS | Clinical Summary ---
Author Organization [facility] Address [address] [place] [address] Care Team Providers Care [employer]isher [employer] Name Role Phone Rianna Salazar Primary Care Provider [phone] Allergies Active Allergy Reactions Criticality Noted Date [...] spray 50 sprays. 05/07/2020 Active HYDROcodone-acet aminophen ([place]) 7.5-325 MG tablet Take 1 tablet by [...] Date Last Done Comments [facility]-Depression Screening 1971 [facility]-/Child/Adol SDOH Screenings 1971 [facility]- SDOH Screenings 1989 [facility]-Adult SDOH Screenings 1989 [facility]-Hepatitis B Vaccines (1 of 3 - 19+ 3-dose series) 1990 [facility]-Pap Smear 1992 [facility]-Cervical Cancer Screening 2001 [facility]-HPV/Cotest 2001 CT Colonography 2016 Colonoscopy 2016 FIT-DNA 2016 FIT 2016 FOBT 2016 Sigmoidoscopy 2016 [facility]-Colorectal Cancer Screening 2016 [facility]-Pneumococcal Vaccine: 50+ Years (1 of 1 - PCV) 2021 [facility]-Zoster Vaccines (1 of 2) 2021 QTD-[id number]-20 Vaccine (1 - season) 2024 [facility]-Influenza Vaccine (#1) 03/24/202506/14, 05/09/2022, 05/03/2021, Additional history exists [facility]-DTaP,Tdap,and Td Vaccines (2 - Td or Tdap) 05/03/2031 05/03/2021, 08/18/2011 HPV Vaccines Aged Out No longer eligi [...] patient's age to complete this topic Insurance [employer] Care Teams [employer] Relationship Specialty Start Date End Date Rianna Salazar PA [address] [place] [address] PCP - General 12/24/20
--- OUTSIDE RECORDS SUMMARY | 2025-03-12 10:20 | XMS_ITS | Clinical Summary ---
[facility] Address [address] [place] [address] Care Team Providers Care Patient Care Manager Name Role Phone Rianna Salazar Primary Care Provider [phone] Allergies No known active allergies Social History Tobacco Use Types Packs/Day Years Used Date Smoking Tobacco: Never Assessed Abuse Screen Answer Date Recorded Unsafe at Home or Work/School Not on file Feels Threatened by Someone? Not on file 03/2023 Does Anyone Keep You from Co ntacting Others or Doint Things Outside the Home? Not on file 05/01/2023 Physical Sign of Abuse Present Not on file 1 Housing Stability Answer Date Recorded Current Living Arrangements Not on file 03/2023 Potentially Unsafe Housing Conditions Not on jimi e 05/01/2023 Family and Community Support Answer Nabil e Recorded Help with Day-to-Day Activities Not on file 05/01/2023 Lonely or Isolated Not on file 05/01/2023 Employment Answer Date Recorded Do you want help finding or keeping work or a aj b? Not on file 05/01/2023 Disabilities Answer Date Recorded Concentrating, Remembering, or Making Decisions Difficulty Not on file 05/01/2023 Doing Errands Independently Difficulty Not on fi le 05/01/2023 Education Answer Date Recorded Help with school or training? Not on file Preferred Language Not on file 05/01/2023 Comments Unknown Sex and Gender Information Value Date Recorded Sex Assigned at Not on file Legal Sex Female 1:22 PM EDT Gender Identity Not on file Sexual Orientation Not on file Last Filed Vital Signs Vital Sign Reading Time Taken Comments Blood Pressure 127/84 02/11/2015 4:41 PM EDT Pulse 93 02/11/2015 4:41 PM EDT Temperature - - Respiratory Rate - - Oxygen Saturation - - Inhaled Oxygen Concentration - - Weight 58.1 kg (128 lb) 02/11/2015 4:41 PM EDT Height 157.5 cm (5' 2 ) 02/11/2015 4:41 PM EDT Body Mass Index 23.41 02/11/2015 4:41 PM EDT Plan of Treatment Health Maintenance Due Date Last Done Comments ANNUAL PHYSICAL 1971 Annual Gynecologic Pelvic an d Breast Exam 1971 HEPATITIS C SCREENING 1971 MAMMOGRAM 2011 COLOGUARD 2016 COLON CANCER SCREENING 5 YEA R SIGMOIDOSCOPY 2016 COLONOSCOPY [address] CANCER SCREENING 2016 CT COLONOGRAPHY 2016 FECAL OCCULT BLOOD TEST 2016 FIT Testing (1 year) 2016 Pneumococcal Vaccine 50+ (1 of 1 - PCV) 2021 ZOSTER VACCINE (1 of 2) 2021 COVID-19 Vaccine (1 - 2023-2 5 season) 2024 INFLUENZA VACCINE 04/23/2025 06/14/2023, , 05/03/2021, Additional history exists TDAP/TD VACCINES (3 - Td or Tdap) 05/03/2031 021, 08/18/2011 Insurance [employer] Care Teams Patient Care Manager Relationship Specialty Start Date End Date Rianna Salazar PA PCP - General Physician C S S Representative 8/8/24
== END 2025-03-10 23:59 | disposition home or self-care (01) ==
LOC: LAB.DROPOF 03-12 10:00
PROVIDERS: PCP Urology; Visit Provider Urology
DX: R31.9 Hematuria, unspecified (principal); N34.2 Other urethritis
CPT/HCPCS: 81001; 87086

== ENCOUNTER 2025-04-11 08:17 | Day surgery (SDC) | payer MEDICAID, SELFPAY ==
[2025-04-04 13:04] VITALS: BMI 25.5
[2025-04-11 08:33] VITALS: BP 138/72; PULSE 83; RESP 16; TEMP 36.2; O2SAT 98
[2025-04-11] MEDS: WATER FOR IRRIGATION,STERILE 1,000 ML 10 ML IR (09:05)
[2025-04-11] MEDS: LIDOCAINE 2% UROJET 10ML 10 ML (09:05)
--- NOTE | 2025-04-11 09:07 | P.PCN_ITS ---
[facility] Procedure Note Date: 04/11/25 Time: 09:08 Procedure Note:: Chart review: The patient continues to have microscopic hematuria. She is just here for follow-up cystoscopy to make sure we have not missed carcinoma in situ. She had 10 red cells per high-power field on 03/17. The current guidelines allow up to 25 but I am still have concerns about patient such as higher and a missed diagnosis of carcinoma. Her CT scan with and without infusion shows bilateral renal cysts on the 06/16. The patient has overactive bladder. She is on Estrace and oxybutynin. She says she has been clinically doing better late Pre-op diagnosis: Hematuria/OAB Postop diagnosis: Hematuria/OAB Operative note: The patient was brought to the cystoscopy suite. She was catheterized for a urinalysis and a urine culture. The patient then underwent flexible cystoscopy. Her urethral meatus is intravaginal with atrophic vaginitis and some atrophic stenosis. Her urethra is unremarkable. The bladder itself is Belcher pink in color throughout without evidence of bladder stone tumor hemorrhage or infection. The ureteral orifice is normal bilaterally. She has clear reflux of urine. She tolerated the procedure well.
[2025-04-11 09:10] VITALS: BP 137/72; PULSE 76; RESP 16; TEMP 36.3; O2SAT 96
[2025-04-11 10:59] LABS: Microscopic,Cath URINE MICROSCOPIC (MICROSCOPIC)
[2025-04-11 11:22] LABS: Appearance,Urine/Cath CLEAR (Clear); Bilirubin,Cath Negative (Negative); Blood, Urine/Cath 3+ (Negative); Color,Urine/Cath YELLOW (Yellow); Glucose,Urine/Cath (UA) Negative (Negative); Ketones,Urine/Cath TRACE (Negative); Leukocyte Esterase,Cath Negative (Negative); Nitrate,Cath Negative (Negative); PH,Urine/Cath 6.0 (5.0-8.5); Protein,Urine/Cath Negative (Negative); Specific Gravity, Urine/Cath 1.020 (1.005-1.030); Urobilinogen,Cath 0.2 EU/dl (0.2)
[2025-04-11 12:01] LABS: Squamous Epithelial Ur./Cath Occasional #/hpf (0-5)
[2025-04-11 12:02] LABS: CA Oxalate Crystals,Ur/Cath Trace /lpf; WBC,Urine/Cath Occasional #/hpf (0-3)
== END 2025-04-11 09:10 | disposition home or self-care (01) ==
PROVIDERS: PCP Physician Assistant; Visit Provider Urology
PROC: 0TJB8ZZ Inspection of Bladder, Via Natural or Artificial Opening Endoscopic (ICD-10-PCS; CPT 52000; principal; 2025-04-11 08:15)
DX: N95.2 Postmenopausal atrophic vaginitis (principal); N28.1 Cyst of kidney, acquired; N32.81 Overactive bladder
CPT/HCPCS: 52000; 81001

== ENCOUNTER 2025-07-14 10:00 | Outpatient (CLI) | payer MEDICAID, SELFPAY ==
[2025-07-14 15:02] LABS: Microscopic, Urine URINE MICROSCOPIC (MICROSCOPIC)
[2025-07-14 15:31] LABS: Bilirubin,Urine Negative (Negative); Color,Urine YELLOW (Yellow); Glucose,Urine (UA) Negative (Negative); Ketones,Urine TRACE (Negative); Leukocyte Esterase,Urine Negative (Negative); PH,Urine 6.0 (5.0-8.5); Protein,Urine Negative (Negative); Specific Gravity, Urine >= 1.030 (1.005-1.030); Urobilinogen,Urine 0.2 EU/dl (0.2)
[2025-07-14 16:11] LABS: Amorphous Sediment,Urine 3+ /lpf; Bacteria,Urine 2+ /lpf
--- OUTSIDE RECORDS SUMMARY | 2025-07-15 12:26 | XMS_ITS | Clinical Summary ---
[facility] [address] [place] [address] Care Team Providers Care Hand Candy Cutter Name Role Phone Rianna Salazar Primary Care Provider [phone] Allergies No known active allergies Social History [...] 2021 ZOSTER VACCINE (1 of 2) 2021 INFLUENZA VACCINE 02/21/2025 06/14/2023, , 05/03/2021, Additional history exists TDAP/TD VACCINES (2 - Td or Tdap) 05/03/2031 021, 08/18/2011 Insurance [employer] Care Teams Hand Candy Cutter Relationship Specialty Start Date End Date Rianna Salazar PA PCP - General Physician Exhibit Cleaner 02/29/24
--- OUTSIDE RECORDS SUMMARY | 2025-07-15 12:26 | XMS_ITS | Clinical Summary ---
Author Organization [facility] Address [address] [place] [address] Care Team Providers Care Ems Driver Name Role Phone Rianna Salazar Primary Care Provider [phone] Allergies Active Allergy Reactions Criticality Noted Date [...] spray 50 sprays. 05/07/2020 Active HYDROcodone-acet aminophen ([place]) 7.5-325 MG tablet Take 1 tablet by [...] 2021 [facility]-Zoster Vaccines (1 of 2) 2021 JDR-AEHRE-40 Vaccine (1 - 2024- season) 2025 [facility]-Influenza Vaccine (#1) 03/24/202506/14, 05/09/2022, 05/03/2021, Additional history exists UKY-DTaP,Tdap,and Td Vaccines (2 - Td or Tdap) 05/03/2031 05/03/2021, 08/18/2011 HPV Vaccines (No Doses Required) Completed [facility]-HIB Vaccines Aged Out No longer e [...] this topic Insurance [employer] Care Teams Ems Driver Relationship Specialty Start Date End Date Rianna Salazar PA [address] [place] [address] PCP - General 12/24/20
--- OUTSIDE RECORDS SUMMARY | 2025-07-15 12:27 | XMS_ITS | Data Portability ---
Author Organization [employer] [facility] Address [address] [place] [address] Assessment Encounter Date Assessment Date Assessment LastModified by Organization Details LastModified Time 09/16/2024 09/16/2024 Discussed lab results. [email or web address] Not available 09/16/2024 15:11:04 Plan of Treatment Reminders Order Date Submit Date Provider Last Modified By Organization Details Last Modified Time Details Appointments None recorded. Lab None recorded. Referral ENT surgery referral 2024 025 ERIKA Nitza Reilly MD, [address] , [place], [place], [address], 12:05:[address] referral [address] [facility], [address] [place] [address], [address], 14:00:39 Procedures None recorded. Surgeries None recorded. Imaging XR, cervical spine, 4 or 5 view 2024 025 [facility] (Radiology), [address] , [place], [address], 09:22:40 Medication Orders meclizine 25 mg tablet 2024 025 [facility], [address] [facility], [place], [address], 05:02:14 prednisone 20 mg tablet 2024 025 [facility], [address] [place] [address], [address], 5 05:02:07 tizanidine 4 mg tablet 2024 025 [facility], [address] [place] [address], [address], 5 05:02:13 losartan 25 mg tablet 2024 025 [facility], [address] [place] [address], [address], 5 09:10:25 fluticasone propionate 50 mcg/actuati on nasal spray,suspe nsion 2024 025 [facility], [address] [place] [address], [address], 5 15:04:45 ergocalcife rol (vitamin D2) 1,250 mcg (50,000 unit) capsule 2024 025 [facility], [address] [place] [address], [address], 5 15:04:48 trazodone 150 mg tablet 2024 025 [facility], [address] [place] [address], [address], 5 15:04:46 ciclopirox 8 % topical solution 2024 025 [facility], [address] [place] [address], [address], 5 08:50:18 itraconazol e 100 mg capsule [address] [facility], [address] [place] [address], [address], 5 16:11:13 omeprazole 40 mg capsule,del ayed release 2024 025 [facility], [address] [place] [address], [address], 15:04:44 trazodone 150 mg tablet 2024 025 [facility], [address] [place] [address], [address], 17:38:57 losartan 50 mg tablet 2024 025 [facility], [address] [place] [address], [address], 13:54:22 omeprazole 40 mg capsule,del ayed release 2024 025 [facility], [address] [place] [address], [address], 17:38:54 carbidopa ER 50 mg-levodopa 200 mg tablet,exte nded release 2024 025 [facility], [address] [place] [address], [address], 17:48:11 tizanidine 4 mg tablet 2024 025 [facility], [address] [place] [address], [address], 05:02:13 trazodone 150 mg tablet 2024 025 [facility], [address] [place] [address], [address], 17:58:19 mirabegron ER 50 mg tablet,exte nded release 24 hr 2024 025 [facility], [address] [place] [address], [address], 17:48:10 bupropion HCl XL 300 mg 24 hr tablet, extended release 2024 025 [facility], [address] [place] [address], [address], 17:48:14 trazodone 50 mg tablet 2024 025 [facility], [address] [place] [address], [address], 17:58:18 losartan 50 mg tablet [email or web address] [place] [address], [address] [place] [address], [address], 13:51:18 Patient TargetsNo targets recorded. Patient Instructions Encounter Date Encounter Id Patient Instructions Last Modified By Organization Details Last Modified Time 09/16/2024 [id number] insomnia: care instructions Not available 09/16/2024 13:26:46 high blood press ure: care instructions Not available 09/16/2024 13:26:46 learning about h igh blood pressure Not available 09/16/2024 13:26:46 10/02/2024 [id number] restless legs syndrome: care instructions Not available 10/02/2024 17:41:56 learning about m ood disorders Not available 10/02/2024 17:41:56 10/29/2024 [id number] insomnia: care instructions [email or web address] Not available 10/29/2024 17:37:29 high blood press ure: care instructions Not available 10/29/2024 17:37:28 learning about h igh blood pressure [email or web address] Not available 10/29/2024 17:37:29 gastroesophageal reflux disease (GERD): care instructions [email or web address] Not available 10/29/2024 17:37:28 02/10/2025 [id number] allergies: care instructions [email or web address] Not available 02/10/2025 15:00:27 toenail fungus: care instructions [email or web address] Not available 02/10/2025 14:11:57 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 Referring Physician: Rianna Salazar, Family Medicine, Encounter Date: 02/10/2025 ENT Surgery Referral for Les ion of skin of left ear Referring Physician: Rianna Salazar [facility], Encounter Date: 05/26/2025 Results Created Date Observation Date Name Description Value Unit Range Abnormal Flag Note LastModifiedBy Organization Detail LastModifiedTime 09/02/19 25 09/05/2024 TOXAS SURE FLEX 19, UR summary report FINAL ===== ===== ===== ===== ===== ===== ===== ===== ===== ===== ===== ===== ===== === Jade fine ds, MS, Ur RFX ToxAs sure Flex [...] ===== ===== ===== === Not Available [facility] ([facility]) [address] [place], [address], 09/05/2024 22:06:14 09/02/19 25 09/05/2024 TOXAS SURE FLEX 19, UR pdf . Not Available [facility] ([facility]) [address] [place], [address], 09/05/2024 22:06:14 09/02/19 25 09/05/2024 TOXAS SURE FLEX 19, UR creatinine 67 mg/dL REFER ENCE RANGE : Ref Range >=20 Not Available [facility] ([facility]) [address] [place], [address], 09/05/2024 22:06:14 09/02/19 25 09/05/2024 TOXAS SURE FLEX 19, UR amphetamines ia Negati ve NG/mL cutoff :300 Not Available [facility] ([facility]) [address] [place], [address], 09/05/2024 22:06:14 09/02/19 25 09/05/2024 TOXAS SURE FLEX 19, UR benzodiazepi marium Negati ve Not Available [facility] ([facility]) [address] [place], [address], 09/05/2024 22:06:14 09/02/19 25 09/05/2024 TOXAS SURE FLEX 19, UR diazepam Not Detect ed NG/mg _crea t Not Available [facility] ([facility]) [address] [place], [address], 09/05/2024 22:06:14 09/02/19 25 09/05/2024 TOXAS SURE FLEX 19, UR desmethyldia zepam Not Detect ed NG/mg _crea t Not Available [facility] ([facility]) [address] [place], [address], 09/05/2024 22:06:14 09/02/19 25 09/05/2024 TOXAS SURE FLEX 19, UR oxazepam Not Detect ed NG/mg _crea t Not Available [facility] ([facility]) [address] [place], [address], 09/05/2024 22:06:14 09/02/19 25 09/05/2024 TOXAS SURE [...] live Oxaze live: None Not Available [facility] ([facility]) [address] [place], [address], 09/05/2024 22:06:14 09/02/19 25 09/05/2024 TOXAS SURE FLEX 19, UR alprazolam Not Detect ed NG/mg _crea t Not Available [facility] ([facility]) [address] [place], [address], 09/05/2024 22:06:14 09/02/19 25 09/05/2024 TOXAS SURE FLEX 19, UR alpha-hydrox yalprazolam Not Detect ed NG/mg _crea t Not Available [facility] ([facility]) [address] [place], [address], 09/05/2024 22:06:14 09/02/19 25 09/05/2024 TOXAS SURE FLEX 19, UR desalkylflur azepam Not Detect ed NG/mg _crea t Not Available [facility] ([facility]) [address] [place], [address], 09/05/2024 22:06:14 09/02/19 25 09/05/2024 TOXAS SURE FLEX 19, UR lorazepam Not Detect ed NG/mg _crea t Not Available [facility] ([facility]) [address] [place], [address], 09/05/2024 22:06:14 09/02/19 25 09/05/2024 TOXAS SURE FLEX 19, UR alpha-hydrox ytriazolam Not Detect ed NG/mg _crea t Not Available [facility] ([facility]) [address] [place], [address], 09/05/2024 22:06:14 09/02/19 25 09/05/2024 TOXAS SURE FLEX 19, UR clonazepam Not Detect ed NG/mg _crea t Not Available [facility] ([facility]) [address] [place], [address], 09/05/2024 22:06:14 09/02/19 25 09/05/2024 TOXAS SURE FLEX 19, UR 7-aminoclona zepam Not Detect ed NG/mg _crea t Not Available [facility] ([facility]) [address] [place], [address], 09/05/2024 22:06:14 09/02/19 25 09/05/2024 TOXAS SURE FLEX 19, UR midazolam Not Detect ed NG/mg _crea t Not Available [facility] ([facility]) [address] [place], [address], 09/05/2024 22:06:14 09/02/19 25 09/05/2024 TOXAS SURE FLEX 19, UR alpha-hydrox ymidazolam Not Detect ed NG/mg _crea t Not Available [facility] ([facility]) [address] [place], [address], 09/05/2024 22:06:14 09/02/19 25 09/05/2024 TOXAS SURE FLEX 19, UR flunitrazepa m Not Detect ed NG/mg _crea t Not Available [facility] ([facility]) [address] [place], [address], 09/05/2024 22:06:14 09/02/19 25 09/05/2024 TOXAS SURE FLEX 19, UR desmethylflu nitrazepam Not Detect ed NG/mg _crea t Not Available [facility] ([facility]) [address] [place], [address], 09/05/2024 22:06:14 09/02/19 25 09/05/2024 TOXAS SURE FLEX 19, UR cocaine metabolite ia Negati ve NG/mL cutoff :150 Not Available [facility] ([facility]) [address] [place], [address], 09/05/2024 22:06:14 09/02/19 25 09/05/2024 TOXAS SURE FLEX 19, UR ethanol biomarkers ia Negati ve NG/mL cutoff :500 Not Available [facility] ([facility]) [address] [place], [address], 09/05/2024 22:06:14 09/02/19 25 09/05/2024 TOXAS SURE FLEX 19, UR cannabinoids ia COMMEN T NG/mL cutoff :20 Furth er testi ng indic ated Not Available [facility] ([facility]) [address] [place], [address], 09/05/2024 22:06:14 09/02/19 25 09/05/2024 TOXAS SURE FLEX 19, UR 6-acetylmorp jay ia Negati ve NG/mL cutoff :10 Not Available [facility] ([facility]) [address] [place], [address], 09/05/2024 22:06:14 09/02/19 25 09/05/2024 TOXAS SURE FLEX 19, UR opiate class ia Negati ve NG/mL cutoff :100 Not Available [facility] ([facility]) [address] [place], [address], 09/05/2024 22:06:14 09/02/19 25 09/05/2024 TOXAS SURE FLEX 19, UR oxycodone class ia Negati ve NG/mL cutoff :100 Not Available [facility] ([facility]) [address] [place], [address], 09/05/2024 22:06:14 09/02/19 25 09/05/2024 TOXAS SURE FLEX 19, UR methadone ia Negati ve NG/mL cutoff :100 Not Available [facility] ([facility]) [address] [place], [address], 09/05/2024 22:06:14 09/02/19 25 09/05/2024 TOXAS SURE FLEX 19, UR methadone mtb ia Negati ve NG/mL cutoff :100 Not Available [facility] ([facility]) [address] [place], [address], 09/05/2024 22:06:14 09/02/19 25 09/05/2024 TOXAS SURE FLEX 19, UR buprenorphin e ia Negati ve NG/mL cutoff :5.0 Not Available [facility] ([facility]) [address] [place], [address], 09/05/2024 22:06:14 09/02/19 25 09/05/2024 TOXAS SURE FLEX 19, UR fentanyl ia Negati ve NG/mL cutoff :2.0 Not Available [facility] ([facility]) [address] [place], [address], 09/05/2024 22:06:14 09/02/19 25 09/05/2024 TOXAS SURE FLEX 19, UR tapentadol ia Negati ve NG/mL cutoff :200 Not Available [facility] ([facility]) [address] [place], [address], 09/05/2024 22:06:14 09/02/19 25 09/05/2024 TOXAS SURE FLEX 19, UR propoxyphene ia Negati ve NG/mL cutoff :300 Not Available [facility] ([facility]) [address] [place], [address], 09/05/2024 22:06:14 09/02/19 25 09/05/2024 TOXAS SURE FLEX 19, UR tramadol ia Negati ve NG/mL cutoff :200 Not Available [facility] ([facility]) [address] [place], [address], 09/05/2024 22:06:14 09/02/19 25 09/05/2024 TOXAS SURE FLEX 19, UR methylphenid ate ia Negati ve NG/mL cutoff :100 Not Available [facility] ([facility]) [address] [place], [address], 09/05/2024 22:06:14 09/02/19 25 09/05/2024 TOXAS SURE FLEX 19, UR barbiturates ia Negati ve NG/mL cutoff :200 Not Available [facility] ([facility]) [address] [place], [address], 09/05/2024 22:06:14 09/02/19 25 09/05/2024 TOXAS SURE FLEX 19, UR phencyclidin e ia Negati ve NG/mL cutoff :25 Not Available [facility] ([facility]) [address] [place], [address], 09/05/2024 22:06:14 09/02/19 25 09/05/2024 TOXAS SURE FLEX 19, UR gabapentin ia Negati ve ug/mL cutoff :1.0 Not Available [facility] ([facility]) [address] [place], [address], 09/05/2024 22:06:14 09/02/19 25 09/05/2024 TOXAS SURE FLEX 19, UR anticonvulsa nts Negati ve Not Available [facility] ([facility]) [address] [place], [address], 09/05/2024 22:06:14 09/02/19 25 09/05/2024 TOXAS SURE FLEX 19, UR pregabalin Not Detect ed Not Available [facility] ([facility]) [address] [place], [address], 09/05/2024 22:06:14 09/02/19 25 09/05/2024 TOXAS SURE FLEX 19, UR carisoprodol ia Negati ve NG/mL cutoff :100 Not Available [facility] ([facility]) [address] [place], [address], 09/05/2024 22:06:14 09/02/19 25 09/03/2024 TSH+F REE T4 TSH COMMEN T uIU/m L Test not perfo rmed. No speci men recei jolynn. TESTI NG NOT ON ORIGI NAL REQ. UPLOA D ERROR . Not Available [facility] ([facility]) [address] [facility], [place], [address], 09/05/2024 22:06:14 09/02/19 25 09/03/2024 TSH+F REE T4 T4,free(dire ct) TNP Test not perfo rmed Not Available [facility] ([facility]) [address] [place], [address], 09/05/2024 22:06:14 09/02/19 25 09/03/2024 CBC WITH DIFFE RENTI AL/PL ATELE T WBC COMMEN T x10e3 /uL Test not perfo rmed. No speci men recei jolynn. TESTI NG NOT ON ORIGI NAL REQ. UPLOA D ERROR . Not Available [facility] ([facility]) [address] [facility], [place], [address], 09/05/2024 22:06:15 09/02/19 25 09/03/2024 CBC WITH DIFFE RENTI AL/PL ATELE T RBC TNP Test not perfo rmed Not Available [facility] ([facility]) [address] [place], [address], 09/05/2024 22:06:15 09/02/19 25 09/03/2024 CBC WITH DIFFE RENTI AL/PL ATELE T hemoglobin TNP Test not perfo rmed Not Available [facility] ([facility]) [address] [place], [address], 09/05/2024 22:06:15 09/02/19 25 09/03/2024 CBC WITH DIFFE RENTI AL/PL ATELE T hematocrit TNP Test not perfo rmed Not Available [facility] ([facility]) [address] [facility], [place], [address], 09/05/2024 22:06:15 09/02/19 25 09/03/2024 CBC WITH DIFFE RENTI AL/PL ATELE T MCV CONCRETE CURER Not Available [facility] ([facility]) [address] [facility], [place], [address], 09/05/2024 22:06:15 09/02/19 25 09/03/2024 CBC WITH DIFFE RENTI AL/PL ATELE T MCH CONCRETE CURER Not Available [facility] ([facility]) [address] [facility], [place], [address], 09/05/2024 22:06:15 09/02/19 25 09/03/2024 CBC WITH DIFFE RENTI AL/PL ATELE T MCHC CONCRETE CURER Not Available [facility] ([facility]) [address] [facility], [place], [address], 09/05/2024 22:06:15 09/02/19 25 09/03/2024 CBC WITH DIFFE RENTI AL/PL ATELE T RDW CONCRETE CURER Not Available [facility] ([facility]) [address] [facility], [place], [address], 09/05/2024 22:06:15 09/02/19 25 09/03/2024 CBC WITH DIFFE RENTI AL/PL ATELE T platelets TNP Test not perfo rmed Not Available [facility] ([facility]) [address] [facility], [place], [address], 09/05/2024 22:06:15 09/02/19 25 09/03/2024 CBC WITH DIFFE RENTI AL/PL ATELE T neutrophils TNP Test not perfo rmed Not Available [facility] ([facility]) [address] [facility], [place], [address], 09/05/2024 22:06:15 09/02/19 25 09/03/2024 CBC WITH DIFFE RENTI AL/PL ATELE T lymphs TNP Test not perfo rmed Not Available [facility] ([facility]) [address] [facility], [place], [address], 09/05/2024 22:06:15 09/02/19 25 09/03/2024 CBC WITH DIFFE RENTI AL/PL ATELE T monocytes TNP Test not perfo rmed Not Available [facility] ([facility]) [address] [facility], [place], [address], 09/05/2024 22:06:15 09/02/19 25 09/03/2024 CBC WITH DIFFE RENTI AL/PL ATELE T eos TNP Test not perfo rmed Not Available [facility] ([facility]) [address] [facility], [place], [address], 09/05/2024 22:06:15 09/02/19 25 09/03/2024 CBC WITH DIFFE RENTI AL/PL ATELE T basos CONCRETE CURER Not Available [facility] ([facility]) [address] [facility], [place], [address], 09/05/2024 22:06:15 09/02/19 25 09/03/2024 CBC WITH DIFFE RENTI AL/PL ATELE T immature cells CONCRETE CURER Not Available [facility] ([facility]) [address] [facility], [place], [address], 09/05/2024 22:06:15 09/02/19 25 09/03/2024 CBC WITH DIFFE RENTI AL/PL ATELE T neutrophils (absolute) CONCRETE CURER Not Available [facility] ([facility]) [address] [place], [address], 09/05/2024 22:06:15 09/02/19 25 09/03/2024 CBC WITH DIFFE RENTI AL/PL ATELE T lymphs (absolute) TNP Test not perfo rmed Not Available [facility] ([facility]) [address] [facility], [place], [address], 09/05/2024 22:06:15 09/02/19 25 09/03/2024 CBC WITH DIFFE RENTI AL/PL ATELE T monocytes(ab solute) CONCRETE CURER Not Available [facility] ([facility]) [address] [facility], [place], [address], 09/05/2024 22:06:15 09/02/19 25 09/03/2024 CBC WITH DIFFE RENTI AL/PL ATELE T eos (absolute) TNP Test not perfo rmed Not Available [facility] ([facility]) [address] [facility], [place], [address], 09/05/2024 22:06:15 09/02/19 25 09/03/2024 CBC WITH DIFFE RENTI AL/PL ATELE T baso (absolute) TNP Test not perfo rmed Not Available [facility] ([facility]) [address] [facility], [place], [address], 09/05/2024 22:06:15 09/02/19 25 09/03/2024 CBC WITH DIFFE RENTI AL/PL ATELE T immature granulocytes CONCRETE CURER Not Available [facility] ([facility]) [address] [facility], [place], [address], 09/05/2024 22:06:15 09/02/19 25 09/03/2024 CBC WITH DIFFE RENTI AL/PL ATELE T immature grans (abs) CONCRETE CURER Not Available [facility] ([facility]) [address] [facility], [place], [address], 09/05/2024 22:06:15 09/02/19 25 09/03/2024 CBC WITH DIFFE RENTI AL/PL ATELE T NRBC CONCRETE CURER Not Available [facility] ([facility]) [address] [facility], [place], [address], 09/05/2024 22:06:15 09/02/19 25 09/03/2024 CBC WITH DIFFE RENTI AL/PL ATELE T hematology comments: CONCRETE CURER Not Available [facility] ([facility]) [address] [facility], [place], [address], 09/05/2024 22:06:15 09/02/19 25 09/03/2024 COMP. METAB OLIC PANEL (14) glucose COMMEN T mg/dL Test not perfo rmed. No speci men recei jolynn. TESTI NG NOT ON ORIGI NAL REQ. UPLOA D ERROR . Not Available [facility] ([facility]) [address] [facility], [place], [address], 09/05/2024 22:06:15 09/02/19 25 09/03/2024 COMP. METAB OLIC PANEL (14) BUN TNP Test not perfo rmed Not Available [facility] ([facility]) [address] [facility], [place], [address], 09/05/2024 22:06:15 09/02/19 25 09/03/2024 COMP. METAB OLIC PANEL (14) creatinine TNP Test not perfo rmed Not Available [facility] ([facility]) [address] [facility], [place], [address], 09/05/2024 22:06:15 09/02/19 25 09/03/2024 COMP. METAB OLIC PANEL (14) eGFR CONCRETE CURER Not Available [facility] ([facility]) [address] [facility], [place], [address], 09/05/2024 22:06:15 09/02/19 25 09/03/2024 COMP. METAB OLIC PANEL (14) BUN/creatini ne ratio CONCRETE CURER Not Available [facility] ([facility]) [address] [facility], [place], [address], 09/05/2024 22:06:15 09/02/19 25 09/03/2024 COMP. METAB OLIC PANEL (14) sodium TNP Test not perfo rmed Not Available [facility] ([place] [facility]) [address], [place], [address], 09/05/2024 22:06:15 09/02/19 25 09/03/2024 COMP. METAB OLIC PANEL (14) potassium TNP Test not perfo rmed Not Available [facility] ([facility]) [address], [place], [address], 09/05/2024 22:06:15 09/02/19 25 09/03/2024 COMP. METAB OLIC PANEL (14) chloride TNP Test not perfo rmed Not Available [facility] ([facility]) [address], [place], [address], 09/05/2024 22:06:15 09/02/19 25 09/03/2024 COMP. METAB OLIC PANEL (14) carbon dioxide, total TNP Test not perfo rmed Not Available [facility] ([facility]) [address], [place], [address], 09/05/2024 22:06:15 09/02/19 25 09/03/2024 COMP. METAB OLIC PANEL (14) calcium TNP Test not perfo rmed Not Available [facility] ([facility]) [address], [place], [address], 09/05/2024 22:06:15 09/02/19 25 09/03/2024 COMP. METAB OLIC PANEL (14) protein, total TNP Test not perfo rmed Not Available [facility] ([facility]) [address], [place], [address], 09/05/2024 22:06:15 09/02/19 25 09/03/2024 COMP. METAB OLIC PANEL (14) albumin TNP Test not perfo rmed Not Available [facility] ([place] [facility]) [address], [place], [address], 09/05/2024 22:06:15 09/02/19 25 09/03/2024 COMP. METAB OLIC PANEL (14) globulin, total CONCRETE CURER Not Available [facility] ([facility]) [address] [facility], [place], [address], 09/05/2024 22:06:15 09/02/19 25 09/03/2024 COMP. METAB OLIC PANEL (14) A/G ratio CONCRETE CURER Not Available [facility] ([facility]) [address] [facility], [place], [address], 09/05/2024 22:06:15 09/02/19 25 09/03/2024 COMP. METAB OLIC PANEL (14) bilirubin, total TNP Test not perfo rmed Not Available [facility] ([facility]) [address] [place], [address], 09/05/2024 22:06:15 09/02/19 25 09/03/2024 COMP. METAB OLIC PANEL (14) alkaline phosphatase TNP Test not perfo rmed Not Available [facility] ([facility]) [address] [place], [address], 09/05/2024 22:06:15 09/02/19 25 09/03/2024 COMP. METAB OLIC PANEL (14) AST (SGOT) TNP Test not perfo rmed Not Available [facility] ([facility]) [address] [place], [address], 09/05/2024 22:06:15 09/02/19 25 09/03/2024 COMP. METAB OLIC PANEL (14) ALT (SGPT) TNP Test not perfo rmed Not Available [facility] ([facility]) [address] [place], [address], 09/05/2024 22:06:15 09/02/19 25 09/03/2024 LIPID PANEL WITH LDL/H DL RATIO cholesterol, total COMMEN T mg/dL Test not perfo rmed. No speci men recei jolynn. TESTI NG NOT ON ORIGI NAL REQ. UPLOA D ERROR . Not Available [facility] ([facility]) [address] [facility], [place], [address], 09/05/2024 22:06:15 09/02/19 25 09/03/2024 LIPID PANEL WITH LDL/H DL RATIO triglyceride s TNP Test not perfo rmed Not Available [facility] ([facility]) [address] [facility], [place], [address], 09/05/2024 22:06:15 09/02/19 25 09/03/2024 LIPID PANEL WITH LDL/H DL RATIO HDL cholesterol TNP Test not perfo rmed Not Available [facility] ([facility]) [address] [facility], [place], [address], 09/05/2024 22:06:15 09/02/19 25 09/03/2024 LIPID PANEL WITH LDL/H DL RATIO VLDL cholesterol marlena COMMEN T mg/dL Unabl e to calcu late resul t since non-n umeri c resul t obtai aj for compo nent test. Not Available [facility] ([facility]) [address] [facility], [place], [address], 09/05/2024 22:06:15 09/02/19 25 09/03/2024 LIPID PANEL WITH LDL/H DL RATIO LDL chol calc ([facility]) CONCRETE CURER Not Available [facility] ([facility]) [address] [facility], [place], [address], 09/05/2024 22:06:15 09/02/19 25 09/03/2024 LIPID PANEL WITH LDL/H DL RATIO LDL calc comment: CONCRETE CURER Not Available [facility] ([facility]) [address] [place], [address], 09/05/2024 22:06:15 09/02/19 25 09/03/2024 LIPID PANEL WITH LDL/H DL RATIO LDL/HDL ratio CONCRETE CURER Not Available [facility] ([facility]) [address] [facility], [place], [address], 09/05/2024 22:06:15 09/02/19 25 09/03/2024 VITAM IN B12 AND FOLAT E vitamin B12 COMMEN T pg/mL Test not perfo rmed. No speci men recei jolynn. TESTI NG NOT ON ORIGI NAL REQ. UPLOA D ERROR . Not Available [facility] ([facility]) [address] [facility], [place], [address], 09/05/2024 22:06:16 09/02/19 25 09/03/2024 VITAM IN B12 AND FOLAT E folate (folic acid), serum TNP Test not perfo rmed Not Available [facility] ([facility]) [address] [place], [address], 09/05/2024 22:06:16 09/02/19 25 09/03/2024 HCV ANTIB PAULA RFX TO QUANT PCR HCV Ab COMMEN T Test not perfo rmed. No speci men recei jolynn. TESTI NG NOT ON ORIGI NAL REQ. UPLOA D ERROR . Not Available [facility] ([facility]) [address] [facility], [place], [address], 09/05/2024 22:06:16 09/02/19 25 09/05/2024 JADE FINE DS, MS, UR RFX cannabinoids +POSIT JOCE+ Not Available [facility] ([facility]) [address] [place], [address], 09/05/2024 22:06:17 09/02/19 25 09/05/2024 JADE FINE DS, MS, UR RFX carboxy-THC 243 NG/mg [...] other canna binoi ds. Not Available [facility] ([facility]) [address] [facility], [place], [address], 09/05/2024 22:06:17 09/02/19 25 09/03/2024 VITAM IN [...] 1. IOM (Inst itute of Medic ine). 2009. Dieta ry refer ence jairo es for calci um and D. Priya gallegos [place]: [facility] . 2. Linda booker MF, Scooby ey [place], [place] off-F errar i BARLOW, et al. Evalu ation , treat ment, and preve ntion of vitam in D defic iency : an Endoc rine Socie ty clini marlena pract ice guide line. JCEM. 2010; 96(7) :1911 -30. Not Available [facility] ([facility]) [address] [facility], [place], [address], 09/05/2024 22:06:17 09/02/19 25 09/03/2024 HIV AB/P2 4 AG WITH REFLE X HIV Ab/P24 Ag screen COMMEN T Test not perfo rmed. No speci men recei jolynn. TESTI NG NOT ON ORIGI NAL REQ. UPLOA D ERROR . Not Available [facility] ([facility]) [address], [place], [address], 09/05/2024 22:06:17 09/02/19 25 09/03/2024 SPECI MEN STATU S REPOR T specimen status report COMMEN T Test not perfo rmed. No speci men recei jolynn. TEST: 79739 6 TSH+F ree T4 97166 9 CBC With Diffe renti al/[place]ele t 48700 0 Comp. Metab olic Panel (14) 40202 0 Lipid Panel With LDL/H DL Ratio 36214 0 Vitam in B12 and Folat e 01704 0 HCV Antib paula RFX to Quant PCR 13055 0 Vitam in D, 25-Hy droxy 41996 5 HIV Ab/p2 4 Ag with Refle x TESTI NG NOT ON ORIGI NAL REQ. UPLOA D ERROR . Not Available [facility] ([facility]) [address] [facility], [place], [address], 09/05/2024 22:06:18 09/02/19 25 09/02/2024 HbA1c (hemo globi n A1c), blood HbA1c 5.5 Not Available [address], [place], [address], 09/02/2024 11:52:36 09/02/19 25 09/02/2024 elect bo ferreira am No observ ation record ed. [email or web address] [place] [address] (Scheduling) [address], [place], [address], 09/02/2024 15:16:53 06/06/20 25 XR, cervi marlena spine , 4 or 5 view No observ ation record ed. [facility] (Radiology) [address] , [place], [address], 06/06/2025 09:22:40 Result Notes None recorded. Problems Name Problem SNOMED Code Status Onset Date Resolution Date Notes Provider Name and Address Organization Details Recorded Time Herpes simplex 13999105 Active 2023 SHON Sinclair [address] [place] [address], [address] 8, [employer] 4 10:56:48 Deficiency of vitamin D2 167621235 Active 2023 SHON Sinclair [address] [place] [address], 933[address]882 8, [place] [employer] 4 10:56:41 Depressive disorder 23096653 Active 2023 SHON Sinclair [address] [place] [address], 08[address] 8, [place] [employer] 4 10:56:43 Allergic rhinitis 79856638 Active 2023 SHON Sinclair [address] [place] [address], 58[address] 8, [place] [employer] 5 14:59:55 Restless legs syndrome 87605238 Active 2023 SHON Sinclair [address] [place] [address], 97[address] 8, [employer] 4 10:56:57 Urinary incontinenc e 396910221 Active 2023 SHON Sinclair [address] [place] [address], [address] 8, [employer] 4 10:56:54 Hyperlipide nahum 09450820 Active 2023 SHON Sinclair [address] [place] [address], 13590-007 8, [employer] 4 10:57:00 Spasm 69673018 Active 2023 SHON Sinclair [address] [place] [address], 36318-570 8, [employer] 4 15:06:09 Gastroesoph ageal reflux disease 960682705 Active 2023 SHON Sinclair [address] [place] [address], 24[address]805 8, [employer] 4 10:56:46 Insomnia 486562129 Active 2023 SHON Sinclair [address] [place] [address], 77977-770 8, [employer] 4 10:56:56 Vitamin D deficiency 90308511 Active 2023 SHON Sinclair [address] [place] [address], 62273-874 8, [place] [employer] 4 10:56:52 Spasm of back muscles 476393386 Active 2023 SHON Sinclair [address] [place] [address], 49697-139 8, [employer] 4 10:57:03 Essential hypertensio n 18039796 Active 2024 Radha Rene APRN [address] [place] [address], 400[address]131 8, [employer] 5 11:52:00 Fatigue 01263483 Active 2024 Radha Rene APRN [address] [place] [address], 867[address]-920 8, [place] [employer] 5 11:52:45 Pain of right shoulder joint 6969872828519 9100 Active 2024 Radha Rene APRN [address] [place] [address], 16105-435 8, [employer] 5 11:56:35 Pain of right wrist 0458367943440 00 Active 2024 Radha Rene APRN [address] [place] [address], 818[address]-584 8, [place] [employer] 5 12:27:42 Overactive urinary bladder 295104197 Active 2024 Radha Rene APRN [address] [place] [address], 85893-128 8, [place] [employer] 5 17:34:47 Abdominal pain 54691338 Active 2024 Radha Rene APRN [address] [place] [address], 35969-200 8, [employer] 17:37:17 Lesion of skin of left ear 0247721681242 9106 Active 2024 SHON Sinclair [address] [place] [address], 03649-498 8, [employer] 5 14:09:23 Dermatophyt osis 97992999 Active 2024 SHON Sinclair [address] [place] [address], 28549-975 8, [employer] 14:10:39 Onychomycos is 964027850 Active 2024 SHON Sinclair [address] [place] [address], 30064-266 8, [employer] 14:11:19 Vertigo 080638323 Active 2024 SHON Sinclair [address] [place] [address], 29444-713 8, [employer] 09:02:35 Problem Notes None recorded. Procedures Surgical History Date Name Laterality Status Provider Name and Address Organization Details Recorded Time 07/15/20 24 Most Recent Mammogram completed [employer] 10/29/2024 16:29:55 09/21/18 97 Hysterectomy completed Pérez Susan [employer] 09/05/2024 15:37:25 Angioplasty completed Couns[facility] [employer] 06/03/2024 14:42:28 Breast Biopsy completed [employer] 06/03/2024 14:42:28 Colposcopy completed Counsyl [facility] [employer] 06/03/2024 14:42:28 Joint Replacement completed [employer] 06/03/2024 14:42:28 Orthopedic Surgery completed [employer] 06/03/2024 14:42:29 Gallbladder Surgery completed [employer] 06/03/2024 14:42:29 Endometrial Biopsy completed Barbara [employer] 06/03/2024 14:42:29 Total Hysterectomy completed Barbara [employer] 06/03/2024 14:42:29 Imaging Results None recorded. Procedure Notes None recorded. Medical Equipment None Reported. Allergies Allergen ID Allergen Name Allergen Category Reaction Reaction Severity Criticality Documentation Date Start Date Code Code System Note Provider Name and Address Organization Details Recorded Time 46250 codeine medicatio n Not available Not available Not available 06/03/2024 2670 RxNorm [facility] [employer] 14:43:16 Medications Name Sig Start Date Stop Date Status Note LastModified by Organization Details LastModified Time losartan 50 mg tablet Take 1 tablet every day by oral route for 90 days. 02/10 completed Not Available Not Available Not Available trazodone 50 mg tablet Take 1 tablet [...] needed for 10 days, for muscle spasm. 06/12 completed Not Available Not Available Not Available prednisone 20 mg tablet Take 1 tablet twice a day by oral route for 5 days. 06/07 completed Not Available Not Available Not Available carbidopa ER 50 mg-levodopa 200 mg tablet,exte nded release TAKE 1 TABLET BY MOUTH TWICE A DAY 2024 active Not Available Not Available Not Avai lable hydrocodone 10 mg-acetamin ophen 325 mg tablet TAKE 1 TABLET BY MOUTH THREE TIMES DAILY FOR PAIN 05/31 completed Not Available Not Available Not Available omeprazole 40 mg capsule,del ayed release TAKE 1 CAPSULE EVERY DAY BY ORAL ROUTE DIRECTED 2024 active Not Available Not Available Not Avai lable aspirin 81 mg tablet,samantha yed release active Not Available Not Available Not Available spironolact one 25 mg tablet 06/03 completed Not Available Not Available Not Available ciclopirox 8 % topical solution APPLY TO THE AFFECTED AREA(S) BY TOPICAL ROUTE ONCE DAILY PREFERABL Y AT BEDTIME OR 8 HOURS BEFORE WASHING 05/26 completed Not Available Not Available Not Available terbinafine HCl 250 mg tablet 05/26 completed Not Available Not Available Not Available magnesium oxide 400 mg (241.3 mg magnesium) tablet 05/31 completed Not Available Not Available Not Available trazodone 100 mg tablet 05/31 completed Not Available Not Available Not Available meclizine 25 mg tablet TAKE 1 TABLET BY MOUTH 3 TIMES A DAY FOR VERTIGO 2024 active Not Available Not Available Not Avai lable ropinirole 2 mg tablet TAKE 1 TABLET BY MOUTH AT BEDTIME, FOR RESTLESS LEGS. 2024 active Not Available Not Available Not Avai lable trazodone 150 mg tablet TAKE 1 TABLET EVERY DAY BY ORAL ROUTE AT BEDTIME 2024 active Not Available Not Available Not Avai lable lisinopril 10 mg tablet 05/31 completed Not Available Not Available Not Available losartan 25 mg tablet Take 1 tablet every day by oral route for 30 days. active Not Available Not Available No t Available ergocalcife rol (vitamin D2) 1,250 mcg (50,000 unit) capsule Take 1 capsule every week by oral route as directed for 90 days, for Vitamin D deficienc y. active Not Available Not Available No t Available estradiol 0.01% (0.1 mg/gram) vaginal cream active Not Available Not Available Not Available zolpidem 10 mg tablet Take 1 tablet every day by oral route as needed for 30 days, for sleep. 05/26 completed Not Available Not Available Not Available fluticasone propionate 50 mcg/actuati on nasal spray,suspe nsion [place] 1 spray every day by intranasa l route for 30 days. active Not Available Not Available No t Available itraconazol e 100 mg capsule Take 2 capsules every day by oral route for 30 days. 2024 active Not Available Not Available Not Avai lable acyclovir 5 % topical cream APPLY TO THE AFFECTED AREA(S) BY TOPICAL ROUTE 5 TIMES PER DAY 05/26 completed Not Available Not Available Not Available rosuvastati n 5 mg tablet active [...] Available folic acid 400 mcg per day 02/10 completed Not Available Not Available Not Available FeroSul 325 mg (65 mg iron) [...] Not Available diclofenac 1 % topical gel 02/10 completed Not Available Not Available Not Available cholecalcif [...] 2024 active Not Available Not Available Not Deepika moreno [facility] COVID-19 Antigen Rapid Home Test kit active Not Available Not Available Not Available Vitals Date Recorded Systolic And Diastolic Provider Name and Address Organization Details Last Updated DateTime 09/16/2024 142/98 mm[Hg] Barbara [facility] [employer] 09/16/2024 12:24:33 Date Recorded Body height Body mass index (BMI) Body weight Body temperature Heart rate Oxygen saturation Systolic And Diastolic Systolic And Diastolic Provider Name and Address Organization Details Last Updated DateTime 160.02 cm 25.9 kg/m2 01678.4 9 g 98.5 [degF] 88 /min 97 % 144/100 mm[Hg] 135/95 mm[Hg] Pérez Patvis [employer] 12:11:57 Date Recorded Body height Body mass index (BMI) Body weight Body temperature Heart rate Oxygen saturation Systolic And Diastolic Provider Name and Address Organization Details Last Updated DateTime 5 160.02 cm 25.4 kg/m2 07470.8 1 g 98.4 [degF] 96 /min 99 % 109/76 mm[Hg] Pérez Davis [employer] 5 16:52:16 Date Recorded Body height Body mass index (BMI) Body weight Body temperature Heart rate Oxygen saturation Systolic And Diastolic Provider Name and Address Organization Details Last Updated DateTime 5 160.02 cm 25.7 kg/m2 89407.5 9 g 98.6 [degF] 101 /min 95 % 132/85 mm[Hg] Marry Khan [employer] 5 17:05:06 Date Recorded Body height Body mass index (BMI) Body weight Heart rate Oxygen saturation Body temperature Systolic And Diastolic Provider Name and Address Organization Details Last Updated DateTime 5 160.02 cm 24.9 kg/m2 28540.3 7 g 98 /min 95 % 98.3 [degF] 114/72 mm[Hg] Barbara Ken [employer] 5 13:55:59 Date Recorded Body height Body mass index (BMI) Body weight Oxygen saturation Heart rate Body temperature Systolic And Diastolic Provider Name and Address Organization Details Last Updated DateTime 5 160.02 cm 24.1 kg/m2 74066.8 4 g 95 % 90 /min 98.2 [degF] 114/80 mm[Hg] Barbara Ken [employer] 5 08:53:04 Social History Question Answer Notes LastModified by Organizat ion Details LastModified Time Tobacco Smoking Status Former Smoker Barbara Ken [facility], [employer] 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 [id number] Information not available 06/03/2024 Have There Been Any Changes To Your Family Or Social Situation? Yes Information not available 06/03/2024 When Did You Quit Smoking? 16+yearssincelas tcigarette Stop Date 1989 Information not available 02/10/2025 Are There Any Guns Present In Your Home? No Information not available 06/03/2024 Which Of Your Hands Is Dominant? Left Information not available 06/03/2024 Do You Have A Medical Power Of Fixed Wing Aircraft Crew Chief? No Information not available 06/03/2024 What Was The Date Of Your Most Recent Tobacco Screening? 05/26/2025 Information not available 05/26/2025 Do You Have Any Pets? No Information [...] You Passively Exposed To Smoke? Yes Information not available 06/03/2024 Are There Any Smokers In [...] What Date Was Tobacco Cessation Counseling Provided? 05/26/2025 Information not available 05/26/2025 How Many Years Have You Smoked Tobacco? [...] Consumed 4 Or More Drinks? 3 Information not available 06/03/2024 Sex: Unknown Functional Status Question Answer Note [...] not available 06/03/2024 Are you able to walk independently without assistance or assistive devices? YESWOREST Information not available 06/03/2024 Do you have difficulty doing errands alone? Yes Information not available 06/03/2024 Are you able to care for yourself independently? Yes Information not available 06/03/2024 Do you have difficulty dressing, bathing, grooming, or toileting? No Information not available 06/03/2024 What is your exercise level? Moderate Information not available 06/03/2024 Mental Status Question Answer Note LastModified by Organizat ion Details LastModified Time Do you feel stressed (tense, restless, nervous, or anxious, or unable to sleep at night)? [id number] Information not available 06/03/2024 Do you have [...] Depression Y Dermatologic Disorders N Hypothyroidism N Lung Disease N Developmental or Behavioral Disorders N Defects [...] Organ Transplant N Psychiatric/Mental Health Condition N Fibromyalgia Y Dialysis N Schizophrenia N Headaches Y Kidney Disease N Allergies/Hayfever N [...] Recorded Time Tdap 2 completed SHON Sinclair [address] [place] [address], [address], [employer] 06/03/2024 14:54:36 Tdap 1 completed Pérez Susan null, [employer] 09/02/2024 11:12:25 Influenza, split virus, trivalent, preservative 7 completed Pérez Susan null, [employer] 09/02/2024 11:12:25 Influenza, split virus, trivalent, preservative 8 completed Pérez Susan null, [employer] 09/02/2024 11:12:25 Influenza, split virus, trivalent, PF 8 completed Pérez [place] null, [employer] 09/02/2024 11:12:25 Td (adult), 2 Lf tetanus toxoid, preservative free, adsorbed 2 completed Pérez Susan null, [employer] 09/02/2024 11:12:25 Influenza, split virus, quadrivalent, PF 7 completed Pérez Susan null, [employer] 09/02/2024 11:12:25 Influenza, split virus, quadrivalent, PF 1 completed Pérez [place] null, [employer] 09/02/2024 11:12:25 Influenza, split virus, quadrivalent, PF 8 completed Pérez Susan null, [employer] 09/02/2024 11:12:25 Influenza, split virus, quadrivalent, PF 2 completed Pérez [place] null, [employer] 09/02/2024 11:12:25 Influenza, split virus, quadrivalent, PF 3 completed Pérez Susan null, [employer] 09/02/2024 11:12:25 Influenza, split virus, quadrivalent, PF 0 completed Pérez [place] null, [employer] 09/02/2024 11:12:25 Influenza, split virus, quadrivalent, PF 9 completed Pérez [place] null, [employer] 09/02/2024 11:12:25 Past Encounters Encounter ID Performer Location Encounter Start Date Encounter Closed Date Diagnosis/Indication Diagnosis SNOMED-CT Code Diagnosis ICD10 Code Diagnosis IMO Codes Diagnosis Note [id number] SHON Sinclair [facility] [address] [place] [address] 2 06/03/2024 14:27:57 06/03/2024 15:11:43 Nasal congestion 65506634 R09.81 Herpes simplex 25505507 B00.9 Schwartz's esophagus 3029 02436 K22.70 Idiopathic avascular necrosis of bone 4697589440 M87.08 Deficiency of vitamin D2 104887713 E55.9 Depressive disorder 3548 9007 F32.A Allergic rhinitis 625408 04 J30.9 Restless l egs syndrome 29913450 G25.81 Urinary incontinence 165 485745 R32 Gastroesop hageal reflux disease 172092310 K21.00 Hyperlipidemia 80325258 E78.5 Insomnia 915168164 G47.0 0 Spasm 90155108 R25.2 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 Z85.6 Screening mammography 24 735592 Z12.31 [id number] Radha Rene APRN [facility] [address] [place] [address] 86435-138 2 09/02/2024 10:39:34 09/02/2024 12:44:05 Hyperlipidemia 57244149 E78.5 Gastroesop hageal reflux disease 102518082 K21.00 History of non-Hodgkins lymphoma 630027249 Z85.72 History of acute lymphoid leukemia 3858251648 87050084 Z85.6 Essential hypertension 17914874 I10 Adult heal th examination 669380175 Z00.00 Fatigue 37916820 R53.83 Vitamin D deficiency 347 73833 E55.9 Viral screening 30482963 4 Z11.59 Long-term drug therapy 388743932 Z79.891 Pain of ri ght shoulder joint 1762964277 9153873 M25.511 Pain of right wrist 3169 831071 73251 M25.802 [id number] Radha Rene[address] [address] 09/16/2024 11:31:23 09/16/2024 14:01:16 Insomnia 143011968 G47.00 Essential hypertension 53763044 I10 Patient to keep bp log and f/u in 2 weeks [id number] Radha Rene[address] [address] 10/02/2024 16:46:53 10/02/2024 17:58:06 Insomnia 007212717 G47.00 Spasm of back muscles 20 5081238 M62.830 Overactive urinary bladder 546412015 N32.81 Restless l egs syndrome 27784161 G25.81 Depressive disorder 3548 9007 F32.A [id number] Rianna Salazar [address] [address] 10/29/2024 16:55:45 10/29/2024 17:31:07 Gastroesophageal reflux disease 302577826 K21.00 Insomnia 146434050 G47.0 0 Essential hypertension 40617640 I10 [id number] Rianna Salazar [address] [address] 02/10/2025 13:37:43 02/10/2025 14:09:09 Lesion of skin of left ear 2848146001 0297098 H61.92 [id number] Onychomycosis 478614210 B35.1 15296 Gastroesop hageal reflux disease 707866171 K21.00 Insomnia 328004034 G47.0 0 Vitamin D deficiency 347 97421 E55.9 Allergic rhinitis 621957 04 J30.9 5074803 Acute lymp hoid leukemia in remission 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 C91.01 [id number] SHON Sinclair [facility] [address] [place] [address] 05/26/2025 08:37:04 05/26/2025 09:08:44 Vertigo 977268137 R42 96394 Lesion of skin of left ear 3684320081 8523980 H61.92 81628221 Essential hypertension 82308530 I10 Spasm of back muscles 20 0576015 M62.830 Health Concerns Section Related Observation LastModified by Organization Detai ls LastModified Time None Recorded Concern Status LastModified by Organization Details LastModified Time None Recorded Advance Directives Directive N: Payers Insurance Date Sequence Insurance Name Policy Number Policy Raman Covered Member ID Raman Member ID Guarantor Name 05/24/2025 1 [employer] [place] (MEDICAID HMO) Iliana Hernandez [id number] Iliana Mary Notes Date Note Type Note Provider Name and Address Organization Details Recorded Time 09/16/2024 text/html ROS as noted in the HPI Patient presented to clinic today to f/u on lab [...] trazodone and reports it worked well. Radha Rene, JUDY [address] [facility], [place], [address], [facility] [employer] 09/16/2024 15:11:09 10/02/2024 text/html ROS as noted in the HPI Presented to clinic today to follow-up on [...] Patient states that she did see her biz[employer] architect last week and states was told to f/u in 1 year. Patient reports that her bp has been doing well and systolic has been running 130s and diastolic in 70s at home. Patient has no further complaints or concerns for today's visit. Radha Rene APRN [address] [place], [address], [employer] 10/02/2024 17:55:06 10/29/2024 text/html ROS as noted in the HPI Patient presents for followup. History of GERD, HTN, insomnia. 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 She is stiff and sore today. She fell last week when she stood up and her foot had fallen asleep. SHON Sinclair [address] [place], [address], [employer], [employer] 10/29/2024 17:47:19 02/10/2025 text/html ROS as noted in the HPI Patient presents for follow up and refills.Also notes a waxy lesion in front of her left ear. Has been there for a while. Peels off, bleeds, but never goes completely away.Would also like something for fungus in her fingernails. Thinks she got this from trying to help her dad trim his toenails. OTC meds haven't worked. Terbinafine did not work. It is painful. SHON Sinclair [address] [place], [address], [employer], [employer] 02/10/2025 16:14:16 05/26/2025 text/html ROS as noted in the HPI Patient presents for followupComplains of vertigo. Feels very off balance and unsteady. Has fallen 3 times.Has a lesion on the top of her left ear that she would like to have removed.Needs refills. SHON Sinclair [address] [place] [address], [address], [facility] [employer] 05/26/2025 17:24:16 OBGyn Episode No OBEpisode recorded.
--- OUTSIDE RECORDS SUMMARY | 2025-07-15 12:27 | XMS_ITS | Continuity of Care Document ---
Author Organization [place] - [employer], Dat[employer] [facility] Address [address] [place] [place] [address] Assessment No assessment recorded. Plan of Treatment Reminders Order Date Submit Date Provider Last Modified By Organization Details Last Modified Time Details Appointments None recorded. Lab None recorded. Referral ENT surgery referral 2024 ERIKA Reilly MD, [address] [place], [place], [address], 5 12:05:38 Procedures None recorded. Surgeries None recorded. Imaging XR, cervical spine, 4 or 5 view 2024 [facility] (Radiology), [address] , [place], [address], 5 09:22:40 Medication Orders meclizine 25 mg tablet 2024 025 [facility], [address] [place] [address], [address], 5 05:02:14 prednisone 20 mg tablet 2024 025 [facility], [address] [place] [address], [address], 5 05:02:07 tizanidine 4 mg tablet 2024 025 [facility], [address] [place] [address], [address], 5 05:02:13 losartan 25 mg tablet 2024 025 [facility], [address] [place], [address], 5 09:10:25 Patient TargetsNo targets recorded. Patient InstructionsNo instructions recorded. Reason for Referral ENT Surgery Referral for Les ion of skin of left ear Referring Physician: Rianna Salazar, Family Medicine, Encounter Date: 05/26/2025 Results Created Date Observation Date Name Description Value Unit Range Abnormal Flag Note LastModifiedBy Organization Detail LastModifiedTime 06/06/20 25 XR, cervi marlena spine , 4 or 5 view No observ ation record ed. [facility] (Radiology) [address] , [place], [address], 06/06/2025 09:22:40 Result Notes None recorded. Problems Name Problem SNOMED Code Status Onset Date Resolution Date Notes Provider Name and Address Organization Details Recorded Time Herpes simplex 12899314 Active 2023 SHON Sinclair [address] [place] [address], [address]48[address] 8, [employer] 4 10:56:48 Deficiency of vitamin D2 305239407 Active 2023 SHON Sinclair [address] [place] [address], 87[address] 8, [employer] 4 10:56:41 Depressive disorder 24142829 Active 2023 SHON Sinclair [address] [place] [address], 296[address] 8, [employer] 4 10:56:43 Allergic rhinitis 25763156 Active 2023 SHON Sinclair [address] [place] [address], 87[address]455 8, [employer] 5 14:59:55 Restless legs syndrome 48959888 Active 2023 SHON Sinclair [address] [place] [address], 15364[address] 8, [employer] 4 10:56:57 Urinary incontinenc e 381260700 Active 2023 SHON Sinclair [address] [place] [address], 33[address]-646 8, [employer] 4 10:56:54 Hyperlipide nahum 70823363 Active 2023 SHON Sinclair [address] [place] [address], 66001-577 8, [employer] 4 10:57:00 Spasm 41747605 Active 2023 SHON Sinclair [address] [place] [address], 93680-110 8, [employer] 15:06:09 Gastroesoph ageal reflux disease 937241988 Active 2023 SHON Sinclair [address] [place] [address], 16992-496 8, [employer] 4 10:56:46 Insomnia 365641171 Active 2023 SHON Sinclair [address] [place] [address], 35762[address]960 8, [employer] 4 10:56:56 Vitamin D deficiency 23789183 Active 2023 SHON Sinclair [address] [place] [address], 45500-489 8, [employer] 4 10:56:52 Spasm of back muscles 281197912 Active 2023 SHON Sinclair [address] [place] [address], 83328-630 8, [employer] 4 10:57:03 Essential hypertensio n 46890602 Active 2024 Radha Rene APRN [address] [place] [address], 19[address]-824 8, [employer] 5 11:52:00 Fatigue 98689221 Active 2024 Radha Rene APRN [address] [place] [address], 718[address]-726 8, [employer] 5 11:52:45 Pain of right shoulder joint 0988786858830 9100 Active 2024 Radha Rene APRN [address] [place] [address], 87525-085 8, [employer] 5 11:56:35 Pain of right wrist 7722539050894 00 Active 2024 Radha Rene APRN [address] [place] [address], 59711-260 8, [employer] 5 12:27:42 Overactive urinary bladder 405510367 Active 2024 Radha Rene APRN [address] [place] [address], 15780-143 8, [employer] 5 17:34:47 Abdominal pain 33896232 Active 2024 Radha Rene APRN [address] [place] [address], 44952-291 8, [employer] 5 17:37:17 Lesion of skin of left ear 6104055498382 9106 Active 2024 SHON Sinclair [address] [place] [address], 77927-548 8, [employer] 14:09:23 Dermatophyt osis 14046838 Active 2024 SHON Sinclair [address] [place] [address], 31034-336 8, [employer] 14:10:39 Onychomycos is 055309838 Active 2024 SHON Sinclair [address] [place] [address], 42096-441 8, [employer] 14:11:19 Vertigo 944366600 Active 2024 SHON Sinclair [address] [place] [address], 82796-972 8, [employer] 09:02:35 Problem Notes None recorded. Procedures Surgical History Date Name Laterality Status Provider Name and Address Organization Details Recorded Time 07/15/20 24 Most Recent Mammogram completed [employer]. 10/29/2024 16:29:55 09/21/18 97 Hysterectomy completed [employer] 09/05/2024 15:37:25 Angioplasty completed [employer] [facility] [employer] 06/03/2024 14:42:28 Breast Biopsy completed [employer]. 06/03/2024 14:42:28 Colposcopy completed [employer] [facility] [employer] 06/03/2024 14:42:28 Joint Replacement completed [employer] 06/03/2024 14:42:28 Orthopedic Surgery completed [employer] 06/03/2024 14:42:29 Gallbladder Surgery completed [employer]. 06/03/2024 14:42:29 Endometrial Biopsy completed [employer]. 06/03/2024 14:42:29 Total Hysterectomy completed [employer]. 06/03/2024 14:42:29 Imaging Results None recorded. Procedure Notes None recorded. Medical Equipment None Reported. Allergies Allergen ID Allergen Name Allergen Category Reaction Reaction Severity Criticality Documentation Date Start Date Code Code System Note Provider Name and Address Organization Details Recorded Time 41569 codeine medicatio n Not available Not available Not available 06/03/2024 2670 [employer] 14:43:16 Medications Name Sig Start Date [...] propionate 50 mcg/actuati on nasal spray,suspe nsion [place] 1 spray every day by intranasa l [...] Not Available Not Available Not Avai lable bupropion HCl XL 150 mg 24 hr [...] active Not Available Not Available Not Deepika Reese COVID-19 Antigen Rapid Home Test kit active Not Available Not Available Not Available Vitals Date Recorded Body height Body mass index (BMI) Body weight Oxygen saturation Heart rate Body temperature Systolic And Diastolic Provider Name and Address Organization Details Last Updated DateTime 5 160.02 cm 24.1 kg/m2 81949.8 4 g 95 % 90 /min 98.2 [degF] 114/80 mm[Hg] Barbara Ken [employer]. 5 08:53:04 Social History Question Answer Notes LastModified by Organizat ion Details LastModified Time Tobacco Smoking Status Former Smoker Barbara Ken daljit, [employer]. 06/03/2024 14:42:28 Do You Have An Advance [...] Information not available 06/03/2024 What Type Of Diesel Power Mechanic Do You Use? None Information not available [...] Or The Highest Degree You Have Received? [id number] Information not available 06/03/2024 Have There Been Any Changes To Your Family Or Social Situation? Yes Information not available 06/03/2024 When Did You Quit Smoking? 17+yearssinmohitdamon candis Stop Date 1989 Information not available 02/10/2025 Are There Any Guns Present In Your Home? No Information not available 06/03/2024 Which Of Your Hands Is Dominant? Left Information not available 06/03/2024 Do You Have A Medical Power Of Wood Flooring Specialist? No Information not available 06/03/2024 What Was [...] Functional Status Question Answer Note LastModified by [employer] Details LastModified Time Do you use any [...] Mental Status Question Answer Note LastModified by [employer] Details LastModified Time Do you feel stressed (tense, restless, nervous, or anxious, or unable to sleep at night)? [id number] Information not available 06/03/2024 Do you have [...] Recorded Time Tdap 2 completed SHON Sinclair [address] [place] [address], [address], [employer] 06/03/2024 14:54:36 Tdap 1 completed Pérez [employer]ocan[employer]ra [employer] 09/02/2024 11:12:25 Influenza, split virus, trivalent, preservative 7 completed Pérez Only null, [employer] 09/02/2024 11:12:25 Influenza, split virus, trivalent, preservative 8 completed Pérez Susan null, [employer] [facility] 09/02/2024 11:12:25 Influenza, split virus, trivalent, PF 8 completed Pérez Susan null, [facility] [facility] [employer] 09/02/2024 11:12:25 Td (adult), 2 Lf tetanus toxoid, preservative free, adsorbed 2 completed P[employer]rez Only null, [facility] [facility] 09/02/2024 11:12:25 Influenza, split virus, quadrivalent, PF 7 completed Pérez Only null, [facility] [employer] 09/02/2024 11:12:25 Influenza, split virus, quadrivalent, PF 1 completed Pérez Susan null, [facility] [employer] 09/02/2024 11:12:25 Influenza, split virus, quadrivalent, PF 8 completed Pérez Only null, [facility] [employer] 09/02/2024 11:12:25 Influenza, split virus, quadrivalent, PF 2 completed Pérez Only null, [facility] [employer] 09/02/2024 11:12:25 Influenza, split virus, quadrivalent, PF 3 completed Pérez Susan null, [facility] [facility] 09/02/2024 11:12:25 Influenza, split virus, quadrivalent, PF 0 completed Pérez Susan null, [facility] [facility] 09/02/2024 11:12:25 Influenza, split virus, quadrivalent, PF 9 completed P[employer]rez Only null, [facility] [facility] 09/02/2024 11:12:25 Past Encounters Encounter ID Performer Location Encounter Start Date Encounter Closed Date Diagnosis/Indication Diagnosis SNOMED-CT Code Diagnosis ICD10 Code Diagnosis IMO Codes Diagnosis Note [id number] SHON Sinclair [facility] [address] [place] [address] 05/26/2025 08:37:04 05/26/2025 09:08:44 Vertigo 473219731 R42 21001 Lesion of skin of left ear 2634490630 7193654 H61.92 71963276 Essential hypertension 25213903 I10 Spasm of back muscles 20 7927935 M62.830 Health Concerns Section Related Observation LastModified by Organization Detai ls LastModified Time None Recorded Concern Status LastModified by Organization Details LastModified Time None Recorded Payers Encounter Date Sequence Insurance Name Policy Number Policy Raman Covered Member ID Raman Member ID Guarantor Name 05/26/2025 1 [facility] (MEDICAID HMO) Iliana Hernandez [id number] Iliana Hernandez Notes Date Note Type Note Provider Name and Address Organization Details Recorded Time 05/26/2025 text/html ROS as noted in the HPI Patient presents for followupComplains of vertigo. Feels very off balance and unsteady. Has fallen 3 times.Has a lesion on the top of her left ear that she would like to have removed.Needs refills. SHON Sinclair [address] [place] [address], [address], [facility] [employer] [facility] 05/26/2025 17:24:16 OBGyn Episode No OBEpisode recorded.
== END 2025-07-14 23:59 | disposition home or self-care (01) ==
LOC: LAB.DROPOF 07-15 12:24
PROVIDERS: PCP Physician Assistant; Visit Provider Urology
DX: N39.41 Urge incontinence (principal); R31.9 Hematuria, unspecified
CPT/HCPCS: 81001; 87086